=== PATIENT | female | born 2005 | race Caucasian/White ===

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

== ENCOUNTER 2023-06-06 11:42 | Outpatient (CLI) | payer MEDICAID, SELFPAY ==
[2023-06-06 11:59] VITALS: BP 137/83; PULSE 100; PULSE 106; TEMP 36.4; O2SAT 98; BMI 42.7
--- OUTSIDE RECORDS SUMMARY | 2023-06-06 12:04 | XMS RPT_ITS | CCD ---
Author Name Unknown Address [address] [place] [address] Organization [facility] Care Team Providers Care Automatic Pattern Edger Name Role Phone PROVIDER, UNKNOWN Unavailable Unavailable PROVIDER, UNKNOWN Unavailable Unavailable Edison Trejo Unavailable Unavailable Edison Trejo Primary Care Provider REFERRED, SELF Referring Unavailable EDISON TREJO Primary Care Unavailable STEFANY PARTIDA Attending Unavailable EDISON TREJO Primary Care Unavailable STEFANY PARTIDA Attending Unavailable STEFANY PARTIDA Referring Unavailable STEFANY PARTIDA Referring Unavailable EDISON TREJO Primary Care Unavailable STEFANY PARTIDA Attending Unavailable REFERRED, SELF Referring Unavailable ABBI GARCIA Attending Unavailable EDISON TREJO Primary Care Unavailable Edison Trejo Primary Care Provider Abel Gupta Primary Care Provider Edison Trejo Primary Care Provider Edison Trejo MD Primary Care Provider EDISON TREJO Primary Care Unavailable GITA MATTHEWS Attending Unavailable GITA MATTHEWS Referring Unavailable EDISON TREJO Primary Care Unavailable PLOTGITA DIETZ Attending Unavailable PLOTTSGITA Referring Unavailable PLOTGITA DIETZ Referring Unavailable EDISON TREJO Primary Care Unavailable EDISON TREJO Primary Care Unavailable PLOTMIRELA, GITA Referring Unavailable PLOTGITA DIETZ Referring Unavailable EDISON TREJO Primary Care Unavailable GITA MATTHEWS Referring Unavailable EDISON TREJO Primary Care Unavailable EDISON TREOJ Primary Care Unavailable GITA MATTHEWS Referring Unavailable EDISON TREJO Primary Care Unavailable EDISON TREJO Primary Care Unavailable GITA MATTHEWS Attending Unavailable EDISON TREJO Primary Care Unavailable EDISON TREJO Primary Care Unavailable GITA MATTHEWS Attending Unavailable PAPI FRIEND Attending Unavailable PLOTTS, GITA Referring Unavailable TREJO, EDISON VELASQUEZ Primary Care Unavailable PLOTTS, GITA Referring Unavailable TREJO, EDISON EVA Primary Care Unavailable PLOTTS, GITA Attending Unavailable TREJO, EDISON EVA Primary Care Unavailable PLOTTS, GITA Attending Unavailable TREJO, EDISON EVA Primary Care Unavailable PLOTTS, GITA Referring Unavailable VIRGILIO STANTON Attending Unavailable PLOTTS, GITA Referring Unavailable TREJO, EDISON VELASQUEZ Primary Care Unavailable TREJO, EDISON EVA Primary Care Unavailable PLOTTS, GITA Attending Unavailable PLOTTS, GITA Attending Unavailable PLOTTS, GITA Referring Unavailable TREJO, EDISON EVA Primary Care Unavailable TREJO, EDISON EVA Primary Care Unavailable PLOTTS, GITA Attending Unavailable PREET, TAMARA L Referring Unavailable TREJO, EDISON EVA Primary Care Unavailable PREET, TAMARA L Referring Unavailable PREET, TAMARA L Attending Unavailable TREJO, EDISON EVA Primary Care Unavailable PREET, TAMARA L Attending Unavailable TREJO, EDISON EVA Primary Care Unavailable PLOTTS, GITA Referring Unavailable TREJO, EDISON VELASQUEZ Primary Care Unavailable TREJO, EDISON EVA Primary Care Unavailable PLOTTS, GITA Referring Unavailable JANIE WOODARD Attending Unavailable TREJO, EDISON VELASQUEZ Primary Care Unavailable TREJO, EDISON VELASQUEZ Primary Care Unavailable PLOTTS, GITA Attending Unavailable PLOTTS, GITA Referring Unavailable TREJO, EDISON EVA Primary Care Unavailable Allergies Allergy Classification Reported Allergen(s) Allergy Type Date of Onset Reaction(s) Facility (2 sources) Penicillins; Translations: [PENICILLINS] Propensity to adverse reactions to drug 7 [place], [place] (1 source) prednisoLONE; Translations: [PREDNISOLONE] Drug Allergy [facility] Repository (20 sources) predniSONE; Translations: [PREDNISONE] Drug Allergy 7 Vomiting [facility] Work Phone: (5 sources) Penicillins Drug Allergy 7 Other: See Comments [facility] Medications Current Medications Medication Drug Class(es) Dates Sig (Normalized) Sig (Original) ibuprofen 800 mg oral tablet (3 sources) Nonsteroidal Anti-inflammatory Drug Start: 08-23-2022 End: 08-26-2022 take 1 tablet by mouth every eight hours as needed ibuprofen (MOTRIN) 800 mg tablet Take 1 tablet by mouth every 8 hours as needed for pain. FOR PAIN. 20 tablet 0 08/23/2022 08/26/2022 Discontinued Completed/Discontinued Medications Medication Drug Class(es) Dates Sig (Normalized) Sig (Original) [id number] 200 actuat albuterol 0.09 mg/actuat metered dose inhaler (20 sources) beta2-Adrenergic Agonist Start: 04-20-2009 End: 08-26-2022 take 1 puff(s) by inhalation once daily as needed for wheezing ALBUTEROL SULFATE HFA 90 MCG/ACTUATION AEROSOL INHALER Inhale one(1) - two(2) puffs four(4) times a day as needed for wheezing and shortness of breath. 1 1 04/20/2009 08/26/2022 Discontinued Problems Active Problems Problem Classification Problem Date Documented Da te Episodic/Chronic Asthma (20 sources) Unspecified asthma, uncomplicated; Translations: [Asthma, unspecified type, unspecified] 09-25-2005 Chronic Diabetes mellitus without complication (3 sources) Increased glucose level; Translations: [Other abnormal glucose] Onset: 05-07-2023 05-07-2023 Episodic Diabetes or abnormal glucose tolerance complicating ; childbirth; or the puerperium (2 sources) Abnormal glucose level; Translations: [Abnormal glucose complicating ] Onset: 05-30-2023 05-08-2023 Episodic Other complications of (14 sources) Maternal obesity complicating , childbirth and the puerperium, antepartum; Translations: [Obesity complicating , first trimester] Onset: 07-12-2022 Chronic Other complications of (20 sources) Obesity; Translations: [Obesity complicating , unspecified trimester] Onset: 07-12-2022 Chronic Other complications of (16 sources) Anemia in mother complicating , childbirth AND/OR puerperium; Translations: [Anemia complicating , second trimester] Onset: 01-15-2023 01-15-2023 Chronic Other complications of (2 sources) Anemia complicating , second trimester; Translations: [Anemia during in second trimester] Onset: 01-15-2023 Chronic Other complications of (1 source) Obesity complicating , second trimester; Translations: [Obesity affecting in second trimester, unspecified obesity type] Onset: 03-05-2023 Chronic Other complications of (1 source) Obesity complicating , first trimester; Translations: [Obesity complicating , first trimester] Onset: 07-12-2022 Chronic Other complications of (1 source) Non-viable ; Translations: [Other abnormal products of conception] Episodic Other complications of (2 sources) Missed miscarriage; Translations: [Missed ] Episodic Other complications of (1 source) High risk ; Translations: [Supervision of other high risk pregnancies, third trimester] 04-30-2023 Episodic Other complications of (1 source) Supervision of other high risk pregnancies, third trimester; Translations: [Supervision of other high risk pregnancies, third trimester] Onset: 05-30-2023 Episodic Other screening for suspected conditions (not mental disorders or infectious disease) (2 sources) Encounter for other specified screening; Translations: [Encounter for screening for nuchal translucency] Onset: 02-05-2023 Episodic Poisoning by nonmedicinal substances (11 sources) 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, accidental (unintentional), initial encounter; Translations: [Accidental poisoning by lead and its compounds and fumes] Onset: 03-27-2005 03-27-2005 Chronic Residual codes; unclassified (11 sources) Gestation period, 8 weeks; Translations: [8 weeks gestation of ] Onset: 07-12-2022 Episodic Residual codes; unclassified (1 source) Gestation period, 11 weeks; Translations: [11 weeks gestation of ] 01-08-2023 Episodic Residual codes; unclassified (1 source) Gestation period, 12 weeks; Translations: [12 weeks gestation of ] 01-15-2023 Episodic Residual codes; unclassified (1 source) Gestation period, 23 weeks; Translations: [23 weeks gestation of ] 04-02-2023 Episodic Residual codes; unclassified (1 source) Gestation period, 27 weeks; Translations: [27 weeks gestation of ] 04-30-2023 Episodic Residual codes; unclassified (1 source) Gestation period, 30 weeks; Translations: [30 weeks gestation of ] 05-22-2023 Episodic Residual codes; unclassified (1 source) 23 weeks gestation of ; Translations: [23 weeks gestation of ] Onset: 04-30-2023 Episodic Residual codes; unclassified (1 source) 27 weeks gestation of ; Translations: [27 weeks gestation of ] Onset: 11-22-2023 Episodic Residual codes; unclassified (1 source) 15 weeks gestation of ; Translations: [15 weeks gestation of ] Onset: 03-05-2023 Episodic Residual codes; unclassified (1 source) 19 weeks gestation of ; Translations: [19 weeks gestation of ] Onset: 03-05-2023 Episodic Unclassified (2 sources) Overexertion from prolonged static or awkward postures, initial encounter; Translations: [Overexertion from prolonged static or awkward postures, init] Onset: 12-05-2016 Unclassified (1 source) Laceration of left foot; Translations: [Laceration of left foot, initial encounter] Past or Other Problems Problem Classification Problem Date Documented Da te Episodic/Chronic Allergic reactions (11 sources) Contact dermatitis; Translations: [Unspecified contact dermatitis, unspecified cause] Onset: 07-22-2008 07-22-2008 Episodic Appendicitis and other appendiceal conditions (11 sources) Acute appendicitis; Translations: [Unspecified acute appendicitis] Onset: 11-17-2008 11-17-2008 Episodic Other complications of (20 sources) H/O: miscarriage; Translations: [Supervision of with other poor reproductive or obstetric history, unspecified trimester] Onset: 12-12-2022 Episodic Other complications of (1 source) Supervision of with other poor reproductive or obstetric history, unspecified trimester; Translations: [Current with history of spontaneous during prior ] Onset: 12-12-2022 Episodic Other complications of (1 source) Other abnormal products of conception; Translations: [Non-viable ] Onset: 08-23-2022 Episodic Other complications of (1 source) Missed ; Translations: [Missed ] Onset: 08-23-2022 Episodic Other injuries and conditions due to external causes (2 sources) Unspecified injury of right ankle, initial encounter; Translations: [Unspecified injury of right ankle, initial encounter] Onset: 12-05-2016 Episodic Other and delivery including normal (20 sources) Patient encounter status; Translations: [Encounter for supervision of normal first , unspecified trimester] Onset: 07-11-2022 Episodic Residual codes; unclassified (1 source) 12 weeks gestation of ; Translations: [12 weeks gestation of ] Onset: 01-15-2023 Episodic Residual codes; unclassified (1 source) 8 weeks gestation of ; Translations: [8 weeks gestation of ] Onset: 07-12-2022 Episodic Spontaneous (2 sources) Miscarriage; Translations: [Complete or unspecified spontaneous without complication] Onset: 08-23-2022 Episodic Sprains and strains (2 sources) Sprain of unspecified ligament of right ankle, initial encounter; Translations: [Sprain of unspecified ligament of right ankle, init encntr] Onset: 12-05-2016 Episodic Results Test Name Value Interpretation Reference Range Facil ity Vital Signs Date Time Vital Sign Value Performing Clinician Facility 05-22-2023 08:09-0500 Body weight 91.99 kg Gita Plotts SHOWER SCREEN INSTALLER.CNM Work Phone: [facility] 05-22-2023 08:09-0500 Diastolic blood pressure 70 mm[Hg] Gita Plotts SHOWER SCREEN INSTALLER.CNM Work Phone: [facility] 05-22-2023 08:09-0500 Systolic blood pressure 114 mm[Hg] Gita Plotts SHOWER SCREEN INSTALLER.CNM Work Phone: [facility] 04-30-2023 15:36-0500 Body weight 89.36 kg Tamara Oviedo MD Work Phone: [facility] 04-30-2023 15:36-0500 Diastolic blood pressure 74 mm[Hg] Tamara Oviedo MD Work Phone: [facility] 04-30-2023 15:36-0500 Systolic blood pressure 116 mm[Hg] Tamara Oviedo MD Work Phone: [facility] 04-02-2023 09:24-0400 Body weight 90.17 kg Gita Plotts SHOWER SCREEN INSTALLER.CNM Work Phone: [facility] 04-02-2023 09:24-0400 Diastolic blood pressure 80 mm[Hg] Gita Plotts SHOWER SCREEN INSTALLER.CNM Work Phone: [facility] 04-02-2023 09:24-0400 Systolic blood pressure 120 mm[Hg] Gita Plotts SHOWER SCREEN INSTALLER.CNM Work Phone: [facility] 01-08-2023 09:42-0400 Body weight 88.45 kg Gita Plotts SHOWER SCREEN INSTALLER.CNM Work Phone: [facility] 01-08-2023 09:42-0400 Diastolic blood pressure 76 mm[Hg] Gita Plotts SHOWER SCREEN INSTALLER.CNM Work Phone: [facility] 01-08-2023 09:42-0400 Systolic blood pressure 120 mm[Hg] Gita Plotts SHOWER SCREEN INSTALLER.CNM Work Phone: [facility] 09-18-2022 15:46-0400 Body weight 89.36 kg Janie Woodard SHOWER SCREEN INSTALLER.CNM Work Phone: [facility] 09-18-2022 15:46-0400 Diastolic blood pressure 72 mm[Hg] Janie Woodard SHOWER SCREEN INSTALLER.CNM Work Phone: [facility] 09-18-2022 15:46-0400 Systolic blood pressure 122 mm[Hg] Janie Woodard SHOWER SCREEN INSTALLER.CNM Work Phone: [facility] 07-26-2022 08:44-0500 Body weight 90.27 kg Gita Plotts SHOWER SCREEN INSTALLER.CNM Work Phone: [facility] 07-26-2022 08:44-0500 Diastolic blood pressure 72 mm[Hg] Gita Plotts SHOWER SCREEN INSTALLER.CNM Work Phone: [facility] 07-26-2022 08:44-0500 Systolic blood pressure 114 mm[Hg] Gita Plotts SHOWER SCREEN INSTALLER.CNM Work Phone: [facility] 07-12-2022 14:06-0500 Body height 161.3 cm Gita Plotts SHOWER SCREEN INSTALLER.CNM Work Phone: [facility] 07-12-2022 13:13-0500 Body weight 89.9 kg Gita Plotts SHOWER SCREEN INSTALLER.CNM Work Phone: [facility] 07-12-2022 13:13-0500 Diastolic blood pressure 78 mm[Hg] Gita Plotts SHOWER SCREEN INSTALLER.CNM Work Phone: [facility] 07-12-2022 13:13-0500 Systolic blood pressure 120 mm[Hg] Gita Matthews APRN.CNM Work Phone: [facility] 09-26-2019 16:24-0400 Body Temperature 97.81 [degF] Goran Taylor [employer], [place] 09-26-2019 16:24-0400 Body weight 49.44 kg Goran Brandon [employer] , [place] 09-26-2019 16:24-0400 BP Diastolic 74 mm[Hg] Goran Brandon [employer] [place] 09-26-2019 16:24-0400 BP Systolic 127 mm[Hg] Goran [employer] , [place] 09-26-2019 16:24-0400 Pulse (Heart Rate) 109 /min Goran Brandon [employer] 09-26-2019 16:24-0400 Pulse Oximetry 100 % Goran Taylor [employer] , [place] 09-26-2019 16:24-0400 Respiratory Rate 16 /min [facility] [place] Encounters Encounter Date Encounter Type Care Provider Facility Start: 05-30-2023 End: 05-30-2023 ambulatory TAMARA OVIEDO Facility:[facility] Start: 05-30-2023 End: 05-31-2023 ambulatory GITA MATTHEWS Facility:[facility] Start: 05-22-2023 End: 05-22-2023 ambulatory EDISON TREJO Facility:[facility] Start: 05-22-2023 End: 05-22-2023 Patient encounter procedure Gita Matthews APRN.CNM Work Phone: OB/Gynecology Procedures Date Procedure Procedure Detail Performing Clinician Start: 04-30-2023 URINE OB DIP B/O Luis Oviedo MD Work Phone: Start: 04-02-2023 URINE OB DIP B/O Jama Matthews APRN.CNM Work Phone: Start: 01-15-2023 Antibody screen EDISON NEIL Plan of Treatment Date Care Activity Detail Author Start: 09-25-2029 Urine microalbumin profile [facility] Start: 12-17-2023 CHLAMYDIA SCREENING () CHLAMYDIA SCREENING (18-) [facility] Start: 12-17-2023 GC (GONORRHEA) SCREENING (18-24) GC (GONORRHEA) SCREENING (18-24) [facility] Start: 12-17-2023 Screening for Chlamydia trachomatis Chlamydia Screening (18-) [facility] Start: 07-12-2023 CHLAMYDIA SCREENING (18-24) CHLAMYDIA SCREENING (18-24) [facility] Start: 07-12-2023 GC (GONORRHEA) SCREENING (18-24) GC (GONORRHEA) SCREENING (18-24) [facility] Start: 05-30-2023 RSV Vaccine (1 - Risk 1-dose series) RSV Vaccine (1 - Risk 1-dose series) [facility] Start: 05-08-2023 End: 08-07-2023 GEST GLUC GERMAINE, 3-HR, 100 GM, FASTING GEST GLUC GERMAINE, 3-HR, 100 GM, FASTING Lab Routine Abnormal glucose complicating Expected: 05/08/2023, Expires: 08/07/2023 [facility] Work Phone: Immunizations Immunization Date Immunization Notes Care Provider Fa ciliryley 05-09-2022 meningococcal B vaccine, recombinant, OMV, adjuvanted Tamara Oviedo MD Work Phone: [facility] Work Phone: 04-03-2022 meningococcal B vaccine, recombinant, OMV, adjuvanted Tamara Oviedo MD Work Phone: [facility] Work Phone: 04-24-2020 meningococcal polysaccharide (groups A, C, Y and W-135) diphtheria toxoid conjugate vaccine (MCV4P) Tamara Oviedo MD Work Phone: [facility] Work Phone: 09-26-2019 diphtheria, tetanus toxoids and acellular pertussis vaccine, unspecified formulation Goran Brandon [facility] [place] 09-26-2019 tetanus toxoid, redu kendall diphtheria toxoid, and acellular pertussis vaccine, [facility] Work Phone: 07-08-2017 hepatitis A vaccine, pediatric/adolescent dosage, 2 dose schedule Tamara Oviedo MD Work Phone: [facility] Work Phone: 07-08-2017 Human Papillomavirus 9-valent vaccine Tamara Oviedo MD Work Phone: [facility] Work Phone: 07-04-2016 hepatitis A vaccine, pediatric/adolescent dosage, 2 dose schedule Tamara Oviedo MD Work Phone: [facility] Work Phone: 07-04-2016 Human Papillomavirus 9-valent vaccine Tamara Oviedo MD Work Phone: [facility] Work Phone: 10-17-2014 meningococcal polysaccharide (groups A, C, Y and W-135) diphtheria toxoid conjugate vaccine (MCV4P) Tamara Oviedo MD Work Phone: [facility] Work Phone: 10-17-2014 tetanus toxoid, redu kendall diphtheria toxoid, and acellular pertussis vaccine, adsorbed Tamara Oviedo MD Work Phone: [facility] Work Phone: 02-25-2012 influenza, seasonal, injectable Tamara Oviedo MD Work Phone: [facility] Work Phone: 02-25-2012 influenza virus vaccine, unspecified formulation 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 [facility] 01-24-2009 varicella virus vaccine Jacob Matthews SHOWER SCREEN INSTALLER.CNM Work Phone: [facility] Work Phone: 07-14-2007 diphtheria, tetanus toxoids and acellular pertussis vaccine Gita Matthews SHOWER SCREEN INSTALLER.CNM Work Phone: [facility] Work Phone: 07-14-2007 measles, mumps and rubella virus vaccine Gita Matthews SHOWER SCREEN INSTALLER.CNM Work Phone: [facility] Work Phone: 07-14-2007 pneumococcal conjuga te vaccine, 7 valent Tamara Oviedo MD Work Phone: [facility] Work Phone: 07-14-2007 poliovirus vaccine, inactivated Gita Matthews SHOWER SCREEN INSTALLER.CNM Work Phone: [facility] Work Phone: 07-07-2006 influenza virus vaccine, unspecified formulation Gita Matthews SHOWER SCREEN INSTALLER.CNM Work Phone: [facility] Work Phone: 03-27-2005 haemophilus influenz ae type b vaccine, HbOC conjugate Gita Matthews SHOWER SCREEN INSTALLER.CNM Work Phone: [facility] Work Phone: 03-27-2005 pneumococcal conjuga te vaccine, 7 valent Gita Matthews SHOWER SCREEN INSTALLER.CNM Work Phone: [facility] Work Phone: 12-20-2004 diphtheria, tetanus toxoids and acellular pertussis vaccine Gita Mathtews SHOWER SCREEN INSTALLER.CNM Work Phone: [facility] Work Phone: 12-20-2004 measles, mumps and rubella virus vaccine Gita Matthews SHOWER SCREEN INSTALLER.CNM Work Phone: [facility] Work Phone: 12-20-2004 varicella virus vaccine Jacob avilastorm Matthews SHOWER SCREEN INSTALLER.CNM Work Phone: [facility] Work Phone: 07-05-2004 measles, mumps and rubella virus vaccine Tamara Oviedo MD Work Phone: [facility] Work Phone: 04-04-2004 influenza virus vaccine, whole virus Tamara Oviedo MD Work Phone: [facility] Work Phone: 04-04-2004 pneumococcal conjuga te vaccine, 7 valent Tamara Oviedo MD Work Phone: [facility] Work Phone: 04-04-2004 poliovirus vaccine, inactivated Gita Matthews SHOWER SCREEN INSTALLER.CNM Work Phone: [facility] Work Phone: 2003 diphtheria, tetanus toxoids and acellular pertussis vaccine Gita Plotts SHOWER SCREEN INSTALLER.CNM Work Phone: [facility] Work Phone: 2003 haemophilus influenz ae type b conjugate and Hepatitis B vaccine Tamara Oviedo MD Work Phone: [facility] Work Phone: 2003 haemophilus influenz ae type b vaccine, HbOC conjugate Gita Plotts SHOWER SCREEN INSTALLER.CNM Work Phone: [facility] Work Phone: 2003 hepatitis B vaccine, pediatric or pediatric/adolescent dosage Gita Plotts SHOWER SCREEN INSTALLER.CNM Work Phone: [facility] Work Phone: 2003 pneumococcal conjuga te vaccine, 7 valent Gita Plotts SHOWER SCREEN INSTALLER.CNM Work Phone: [facility] Work Phone: 2003 diphtheria, tetanus toxoids and acellular pertussis vaccine Gita Plotts SHOWER SCREEN INSTALLER.CNM Work Phone: [facility] Work Phone: 2003 haemophilus influenz ae type b vaccine, HbOC conjugate Gita Plotts SHOWER SCREEN INSTALLER.CNM Work Phone: [facility] Work Phone: 2003 pneumococcal conjuga te vaccine, 7 valent Gita Plotts SHOWER SCREEN INSTALLER.CNM Work Phone: [facility] Work Phone: 2003 poliovirus vaccine, inactivated Gita Plotts SHOWER SCREEN INSTALLER.CNM Work Phone: [facility] Work Phone: 2003 diphtheria, tetanus toxoids and acellular pertussis vaccine Gita Plotts SHOWER SCREEN INSTALLER.CNM Work Phone: [facility] Work Phone: 2003 haemophilus influenz ae type b vaccine, HbOC conjugate Gita Matthews SHOWER SCREEN INSTALLER.CNM Work Phone: [facility] Work Phone: 2003 pneumococcal conjuga te vaccine, 7 valent Gitaalvin Matthews SHOWER SCREEN INSTALLER.CNM Work Phone: [facility] Work Phone: 2003 poliovirus vaccine, inactivated Gita Matthews SHOWER SCREEN INSTALLER.CNM Work Phone: [facility] Work Phone: 2003 hepatitis B vaccine, pediatric or pediatric/adolescent dosage Gitaalvin Matthews SHOWER SCREEN INSTALLER.CNM Work Phone: [facility] Work Phone: 2003 hepatitis B vaccine, pediatric or pediatric/adolescent dosage Gitaalvin Matthews SHOWER SCREEN INSTALLER.CNM Work Phone: [facility] Work Phone: Payers Date Payer Category Payer Unknown [id number] 2022 Medicaid [id number] 2003 Unknown [id number] [id number] 2003 Unknown [id number] [id number]. [id number] 2003 Unknown [id number] [id number] 2003 Unknown [id number] [id number]. [id number] 2003 Medicaid [id number] Unknown Social History Date Type Detail Facility Start: 12-05-2016 End: 07-12-2022 Tobacco smoking status CAIS Never smoker [facility] Start: 12-05-2016 Alcohol intake Current non-dr fermenter of alcohol (finding) [place], [place] Start: 2003 Sex Assigned At Not on file [facility] depict Exposure to SARS-CoV -2 (event) [facility] Start: 07-11-2018 End: 07-12-2022 Tobacco use and exposure Smokeless tobacco non-user [facility] Start: 01-19-2022 Alcohol intake Not Asked [facility] Start: 07-11-2022 End: 05-22-2023 Alcohol intake Lifetime non-drinker (finding) [facility] Start: 07-11-2022 Education 11 [facility] Start: 05-31-2022 [facility] Tobacco smoking stat [facility] Tobacco smoking consumption unknown [facility] Work Phone: Start: 01-22-2021 End: 02-21-2021 Exposure to SARS-CoV-2 (event) Not sure [facility] Start: 2003 Sex Assigned At Female [facility] Start: 12-12-2022 Education 13 [facility] Start: 12-12-2022 End: 12-16-2022 History of Social function [facility] Start: 12-12-2022 End: 12-16-2022 Tobacco use panel [facility] National Score (1-10 0), lower number is lower risk 75 [facility] Start: 10-02-2022 Gender identity Identifies as female gender (finding) [facility] Start: 10-02-2022 Sexual orientation Heterosexual (fin ding) [facility] Goals Date Patient Goal Desired Activity /State Personal health goal Clinical Notes 07-02-2022 to 05-22-2023 Quick Notes - Gita Matthews APRN.CNM - 05/22/2023 8:19 AM ESTPatient InstructionsTelephone Encounter - Gayatri Li RN - 05/08/2023 9:19 AM ESTPatient InstructionsPatient Instructions Note Date & Type Note Facility 05-22-2023 Miscellaneous Notes S: Rhett Aceves is a 17 year old female who presents at 30.6 weeks gestation for a routine visit. Denies headache, visual changes, chest pain, shortness of breath, vaginal bleeding, leakage of fluid, or dysuria. Failed 1 hour and is scheduling 3 hour GTT. O: See flow sheet Gen: No apparent distress Abd: Gravid, nontender S=D ASSESSMENT/PLAN: 1. 30 weeks gestation of - ICD9: V22.2, ICD10: Z3A.30 (primary diagnosis) - URINE OB DIP B/O 2. Other obesity affecting in third trimester - ICD9: 649.13, 278.00, ICD10: O99.213, E66.8 - Growth US at 32 weeks 3. Anemia in - Taking oral iron- will repeat CBC at 32 weeks P: 1) PTL precautions reviewed and when to call 2) RTO 2 weeks for growth US and LAZ Matthews APRN.CNM documented in this encounter [facility] 05-22-2023 Instructions Dusty Aquino Cma - 05/22/2023 8:08 AM EST SEQUENTIAL SCREENINGS The [facility] offers sequential screenings for women who are interested in screenings for chromosomal abnormalities and certain defects during a . The sequential screen combines ultrasound and blood tests to determine the risk of chromosomal abnormalities, including Down's Syndrome (Trisomy 21) and Trisomy 18, as well as open neural tube defects including spina bifida. Ultrasound examination is performed between 11 weeks and 13 weeks gestational age. Blood tests are drawn after the ultrasound and again later in the between 15 and 21 weeks gestational age. Please let your physician know if you are interested in this testing. It will require an appointment with our hitch technician. This is not an ultrasound performed by a physician in our office during a routine visit. SIGNS AND SYMPTOMS OF LABOR 1. Contractions every 10 minutes or more often 2. Clear, pink, or brownish fluid (water) leaking from vagina 3. Feeling that baby is pushing down, pressure 4. Low, dull backache 5. Cramps that feel like a period 6. Cramps with or without diarrhea If you notice any of the above symptoms, contact our office at [phone] and ask to speak with a nurse. After hours, you can call doctors registry at [phone] OR call [facility] at [phone] and ask to have the doctor consumer educator paged. If you consider this an emergency, dial 9-1-1 or go to your nearest emergency department. NEED HELP? Are you dealing with a violent or abusive relationship? Are you a victim of rape or sexual assult? Call [facility] ([place]) 24 hour Crisis Hotline: 724.437.1160 or 854-202-3180. MANUAL Your Guide to a Healthy manual is now on-line. Visit [email or web address] to download your free copy documented in this encounter [facility] 05-08-2023 Miscellaneous Notes Left message to call office. Please file pended lab order. Gayatri Li RN ----- Message from Gita Matthews APRN.CNM sent at 05/07/2023 5:14 PM EST ----- 1 hour GCT elevated. Please notify patient that she will need to complete a fasting 3 hour GTT. Order placed. documented in this encounter [facility] 05-05-2023 Miscellaneous Notes 3rd risk assessment form submitted 05/05/2023. Debbie Henry RN documented in this encounter [facility] 04-30-2023 Miscellaneous Notes RR- VB No. LOF No. CTXS No. Movement: present. Other c/o: No. Medication list reviewed. Physical Exam See Flow Sheet Abd: soft, nontender, gravid Ext: edema: Trace A/P 27w5d Estimated Date of Delivery: 07/25/23 Labs: 28 week labs anemia- cont. po fe, check cbc and fe studies today declines larc at delivery, plans pills. plan worksheet given info on /birthing education given f/u in 2 weeks considering tdap, revisit next visit Tamara Oviedo M.D. documented in this encounter [facility] 04-30-2023 Instructions Wendi Elliott Ma - 04/30/2023 3:33 PM EST SEQUENTIAL SCREENINGS The [facility] offers sequential screenings for women who are interested in screenings for chromosomal abnormalities and certain defects during a . The sequential screen combines ultrasound and blood tests to determine the risk of chromosomal abnormalities, including Down's Syndrome (Trisomy 21) and Trisomy 18, as well as open neural tube defects including spina bifida. Ultrasound examination is performed between 11 weeks and 13 weeks gestational age. Blood tests are drawn after the ultrasound and again later in the between 15 and 21 weeks gestational age. Please let your physician know if you are interested in this testing. It will require an appointment with our hitch technician. This is not an ultrasound performed by a physician in our office during a routine visit. SIGNS AND SYMPTOMS OF LABOR 1. Contractions every 10 minutes or more often 2. Clear, pink, or brownish fluid (water) leaking from vagina 3. Feeling that baby is pushing down, pressure 4. Low, dull backache 5. Cramps that feel like a period 6. Cramps with or without diarrhea If you notice any of the above symptoms, contact our office at [phone] and ask to speak with a nurse. After hours, you can call doctors registry at [phone] OR call [facility] at [phone] and ask to have the doctor consumer educator paged. If you consider this an emergency, dial 9-8-4 or go to your nearest emergency department. NEED HELP? Are you dealing with a violent or abusive relationship? Are you a victim of rape or sexual assult? Call [facility] ([place]) 24 hour Crisis Hotline: 737.107.8535 or 857-725-8693. MANUAL Your Guide to a Healthy manual is now on-line. Visit [email or web address] to download your free copy documented in this encounter [facility] 04-02-2023 Miscellaneous Notes Rhett Aceves is a 17 year old female who presents at 23w5d Estimated Date of Delivery: 07/25/23 for a routine visit. Good movement. Denies headache, visual changes, chest pain, shortness of breath, vaginal bleeding, leakage of fluid, or dysuria. Feeling well, no complaints. Continues to take iron. Size appropriate for dates. 3 lbs TWG. PTL precautions reviewed. RTC in 4 weeks for LAZ with GCT and CBC. Gita Matthews APRN.CNM documented in this encounter [facility] 04-02-2023 Instructions Sara Shea MA - 04/02/2023 9:18 AM EDT SEQUENTIAL SCREENINGS The [facility] offers sequential screenings for women who are interested in screenings for chromosomal abnormalities and certain defects during a . The sequential screen combines ultrasound and blood tests to determine the risk of chromosomal abnormalities, including Down's Syndrome (Trisomy 21) and Trisomy 18, as well as open neural tube defects including spina bifida. Ultrasound examination is performed between 11 weeks and 13 weeks gestational age. Blood tests are drawn after the ultrasound and again later in the between 15 and 21 weeks gestational age. Please let your physician know if you are interested in this testing. It will require an appointment with our hitch technician. This is not an ultrasound performed by a physician in our office during a routine visit. SIGNS AND SYMPTOMS OF LABOR 1. Contractions every 10 minutes or more often 2. Clear, pink, or brownish fluid (water) leaking from vagina 3. Feeling that baby is pushing down, pressure 4. Low, dull backache 5. Cramps that feel like a period 6. Cramps with or without diarrhea If you notice any of the above symptoms, contact our office at [phone] and ask to speak with a nurse. After hours, you can call doctors registry at [phone] OR call [facility] at [phone] and ask to have the doctor consumer educator paged. If you consider this an emergency, dial 4 or go to your nearest emergency department. NEED HELP? Are you dealing with a violent or abusive relationship? Are you a victim of rape or sexual assult? Call [facility] ([place]) 24 hour Crisis Hotline: 352.733.8640 or 040-233-1729. MANUAL Your Guide to a Healthy manual is now on-line. Visit [email or web address] to download your free copy documented in this encounter [facility] 03-07-2023 Miscellaneous Notes 2nd risk assessment form submitted 03/07/23 Michelle Batista RN documented in this encounter [facility] 01-17-2023 Note HNO ID: [id number] Author: Jenifer Chow RN Service: ? Author Type: Registered Nurse Type: Progress Notes Filed: 01/17/2023 3:20 PM Note Text: Patient referred to Blood Management for evaluation and treatment of pre-surgical anemia and/or iron deficiency. 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 cetirizine (ZYRTEC) 10 mg tablet Take 1 tablet by mouth once daily. fluticasone (FLONASE) 50 mcg/actuation nasal spray Use 2 Sprays in each nostril once daily. Rinse mouth after use. No current facility-administered medications for this visit. Current medications that may affect iron absorption and/or blood loss: - None Baseline laboratory values: WBC (k/uL) Date Value 01/15/2023 11.81 (H) RBC (m/uL) Date Value 01/15/2023 4.29 Hemoglobin (g/dL) Date Value 01/15/2023 9.8 (L) Hematocrit (%) Date Value 01/15/2023 31.7 (L) MCV (fL) Date Value 01/15/2023 73.9 (L) MCH (pg) Date Value 01/15/2023 22.8 (L) MCHC (g/dL) Date Value 01/15/2023 30.9 RDW-CV (%) Date Value 01/15/2023 18.7 (H) Platelet Count (k/uL) Date Value 01/15/2023 542 (H) MPV (fL) Date Value 01/15/2023 9.4 No results found for: FE , TIBC , WALE , FOLATE , B12 , TRANSFERSAT Assess for the need to augment a patient?s natural red blood cell production: - Blood transfusion avoidance - Iron depletion Recommendations according to Blood Management patient care guidelines: - Oral iron every other day with Vitamin C. Repeat labs in 4-6 weeks. IV iron is not recommended in first trimester. Clinical information is sent to a provider for review and evaluation for treatment. [facility] 01-17-2023 History of Presen t illness Narrative Patient referred to Blood Management for evaluation and treatment of pre-surgical anemia and/or iron deficiency. 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 cetirizine (ZYRTEC) 10 mg tablet Take 1 tablet by mouth once daily. fluticasone (FLONASE) 50 mcg/actuation nasal spray Use 2 Sprays in each nostril once daily. Rinse mouth after use. No current facility-administered medications for this visit. Current medications that may affect iron absorption and/or blood loss: - None Baseline laboratory values: WBC (k/uL) Date Value 01/15/2023 11.81 (H) RBC (m/uL) Date Value 01/15/2023 4.29 Hemoglobin (g/dL) Date Value 01/15/2023 9.8 (L) Hematocrit (%) Date Value 01/15/2023 31.7 (L) MCV (fL) Date Value 01/15/2023 73.9 (L) MCH (pg) Date Value 01/15/2023 22.8 (L) MCHC (g/dL) Date Value 01/15/2023 30.9 RDW-CV (%) Date Value 01/15/2023 18.7 (H) Platelet Count (k/uL) Date Value 01/15/2023 542 (H) MPV (fL) Date Value 01/15/2023 9.4 No results found for: FE , TIBC , WALE , FOLATE , B12 , TRANSFERSAT Assess for the need to augment a patient s natural red blood cell production: - Blood transfusion avoidance - Iron depletion Recommendations according to Blood Management patient care guidelines: - Oral iron every other day with Vitamin C. Repeat labs in 4-6 weeks. IV iron is not recommended in first trimester. Clinical information is sent to a provider for review and evaluation for treatment. documented in this encounter [facility] 01-17-2023 Miscellaneous Notes Called patient and notified. Nivia Keating RN Left message for patient to call office. Nivia Keating RN ----- Message from Gita Matthews APRN.CNM sent at 01/15/2023 12:22 PM EDT ----- Patient anemic. Please review oral iron recommendations and have patient start taking. Iron studies ordered and consult to blood management placed. Please notify patient . Gita Matthews APRN.CNM documented in this encounter [facility] 01-15-2023 Miscellaneous Notes Patient had NT u/s today. Please file sequential screen orders. Nivia Keating RN documented in this encounter [facility] 01-08-2023 Miscellaneous Notes Patient declined centering. Dusty Aquino Cma LM for patient to call back to see if she is interested in getting scheduled for Centering. Sara Shea MA documented in this encounter [facility] 01-08-2023 Miscellaneous Notes S: Rhett Aceves is a 17 year old female who presents at 11.5 weeks gestation for a routine visit. Was supposed to have NT US today but needs to reschedule for 12 weeks gestation per hitch technician. Desires sequential screening. Denies headache, visual changes, chest pain, shortness of breath, vaginal bleeding, leakage of fluid, or dysuria. Finished antibiotics- REINALDO next visit. O: See flow sheet Gen: No apparent distress Abd: Gravid, nontender FHT via doppler- 162 bpm ASSESSMENT/PLAN: 1. 11 weeks gestation of - ICD9: V22.2, ICD10: Z3A.11 - URINE OB DIP B/O 2. Obesity affecting P: 1) PTL/ Bleeding precautions reviewed and when to call 2) RTO 1 week for NT US and labs RTO- 4 weeks LAZ Matthews APRN.CNM documented in this encounter [facility] 01-08-2023 Instructions Dusty Aquino Cma - 01/08/2023 9:39 AM EDT SEQUENTIAL SCREENINGS The [facility] offers sequential screenings for women who are interested in screenings for chromosomal abnormalities and certain defects during a . The sequential screen combines ultrasound and blood tests to determine the risk of chromosomal abnormalities, including Down's Syndrome (Trisomy 21) and Trisomy 18, as well as open neural tube defects including spina bifida. Ultrasound examination is performed between 11 weeks and 13 weeks gestational age. Blood tests are drawn after the ultrasound and again later in the between 15 and 21 weeks gestational age. Please let your physician know if you are interested in this testing. It will require an appointment with our hitch technician. This is not an ultrasound performed by a physician in our office during a routine visit. SIGNS AND SYMPTOMS OF LABOR 1. Contractions every 10 minutes or more often 2. Clear, pink, or brownish fluid (water) leaking from vagina 3. Feeling that baby is pushing down, pressure 4. Low, dull backache 5. Cramps that feel like a period 6. Cramps with or without diarrhea If you notice any of the above symptoms, contact our office at [phone] and ask to speak with a nurse. After hours, you can call doctors registry at [phone] OR call [facility] at [phone] and ask to have the doctor consumer educator paged. If you consider this an emergency, dial 9-1-1 or go to your nearest emergency department. NEED HELP? Are you dealing with a violent or abusive relationship? Are you a victim of rape or sexual assult? Call [facility] ([place]) 24 hour Crisis Hotline: 347.961.8372 or 210-200-8380. MANUAL Your Guide to a Healthy manual is now on-line. Visit [email or web address] to download your free copy documented in this encounter [facility] 01-07-2023 Miscellaneous Notes Received the following request from hvac technician :Patient's EDC changed at her POC ultrasound to 2-15-24 which will not make her 12 weeks at her NT screen tomorrow.Patient's BMI is over 40.She is concerned she won't be able to get a good ultrasound image. Please call patient to reschedule.I am leaving for the day documented in this encounter [facility] 12-20-2022 Miscellaneous Notes Patient viewed Pull message. Debbie Salazar RN Left message for patient to call office. Also, sent Pull message. Positive urine culture. Rx for Macrobid 100 mg PO BID x 7 days sent to pharmacy. Please notify patient. Gita Matthews APRN.CNM documented in this encounter [facility] 12-17-2022 Miscellaneous Notes Initial Risk Assessment Form submitted on December 17, 2022 Debbie Mtz RN documented in this encounter [facility] 12-16-2022 Note HNO ID: [id number] Author: Gita Matthews APRN.CNM Service: ? Author Type: Spray Gunner Type: Progress Notes Filed: 12/16/2022 10:12 AM Note Text: OB point of care ultrasound was performed. See imaging tab for details. Gita Matthews APRN.CNM [facility] 12-16-2022 Note HNO ID: [id number] Author: Gita Matthews APRN.CNM Service: ? Author Type: Spray Gunner Type: Progress Notes Filed: 12/16/2022 10:11 AM Note Text: INITIAL OB ASSESSMENT Gold Marker offered: Patient declines. Obstetric History T0 L0 SAB1 IAB0 Ectopic0 Multiple0 Live Births0 Name of Baby 1: Not recorded Date: 08/26/22 GA: 8w4d Delivery: SPONTANEOUS Apgar1: Not recorded Apgar5: Not recorded Living: Not recorded Name of Baby 2: Not recorded Date: Not recorded GA: Not recorded Delivery: Not recorded Apgar1: Not recorded Apgar5: Not recorded Living: Not recorded HPI: Rhett is a 17 year old White Female here to establish Obstetrical Care. Patient's last menstrual period was 10/03/2022 (approximate). from OB Dating Form. Cycles irregular August 2022 [facility] was unplanned but accepted Complaints: None OB History T0 L0 SAB1 IAB0 Ectopic0 Multiple0 Live Births0 Patient's Risk Screening for delivery: MEDICAL/PSYCHOSOCIAL HISTORY: History of hemorrhage or bleeding concerns: No Thyroid Disease: No History of chronic hypertension: No History of pre-existing diabetes: No No results found for: ABORHD BMI 41.21 kg/(m2) History of abnormal pap: No Prior treatment for cervical dysplasia: none. History of STDs: None Tobacco use: No Caffeine use: No Drug use: No Alcohol use: No Multivitamin with Folic acid: Yes Anglican or heritage: No Would refuse blood transfusion if medically necessary: No Are you currently employed? No Do you have any history of depression, anxiety, PTSD, eating disorders or other mood problems: Feels like history of anxiety / depression- no treatment Do you have any safety concerns or history of traumatic events that you would like to discuss with your provider: No How often does this describe you? I don't have enough money to pay my bills: Never Within the past 12 months, have you worried that your food would run out before you had money to buy more: Never In the past 12 months, has lack of reliable transportation kept you from going to medical appointments or work, or from keeping things needed for daily living: Never In the past 12 months, have you had any concerns about having a place to live, or about the condition or quality of your housing: Never Are there any cultural or spiritual needs we should be aware of: No Depression: denies symptoms of depression. 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 cetirizine (ZYRTEC) 10 mg tablet Take 1 tablet by mouth once daily. 30 tablet 0 fluticasone (FLONASE) 50 mcg/actuation nasal spray Use 2 Sprays in each nostril once daily. Rinse mouth after use. 1 Bottle 1 No current facility-administered medications for this visit. Allergies As of Date: 12/16/2022 Allergen Noted Reaction PREDNISONE 07/07/2006 Vomiting Fully Assessed 12/16/2022 Does patient have penicillin allergy: No REVIEW OF SYSTEMS: GENERAL: Negative for: Fever or Chills HEENT: Negative for: Headache, Impaired Vision, Ringing in Ears, Nosebleeds NECK: Negative for: Swelling, Pain, Stiffness RESPIRATORY: Negative for: Cough, Shortness of breath, Wheezing and HISTORY OF INHALIER Uses as needed GASTROINTESTINAL: Negative for: Heartburn, Constipation, Diarrhea, Blood in stool, Vomiting MUSCULOSKELETAL: Negative for: Muscle or joint pain, stiffness, Joint swelling NEUROLOGIC/PSYCHIATRIC: Negative for: Weakness, Paralysis, Numbness, Tingling, Tremor, Anxiety, Depression, Memory loss SKIN: Negative for: Rash, Itching GENITOURINARY: Negative for: vaginal itching, vaginal discharge, hematuria or dysuria and Positive for: urinary frequency PHYSICAL EXAM: BP 112/74 Ht 4' 10 (1.47m) Wt 197 lb 3.2 oz (89.4kg) LMP 10/03/2022 BMI 41.23 kg/(m2). GENERAL: pleasant in no apparent distress DERMATOLOGY: Normal, without lesions, non-icteric, and non-hirsute NECK: Supple and full range of gus (more content not included)... [facility] 12-16-2022 History of Presen t illness Narrative OB point of care ultrasound was performed. See imaging tab for details. Gita Matthews APRN.CNM documented in this encounter [facility] 12-12-2022 Note HNO ID: [id number] Author: Calista Wells RN Service: ? Author Type: ? Type: Progress Notes Filed: 12/12/2022 3:24 PM Note Text: # 1 - Date: 08/26/22, Sex: Unknown, Weight: None, GA: 8w4d, Delivery: SPONTANEOUS , Apgar1: None, Apgar5: None, Living: None, Comments: suction DANDC # 2 - Date: None, Sex: None, Weight: None, GA: None, Delivery: None, Apgar1: None, Apgar5: None, Living: None, Comments: None [facility] 12-12-2022 History of Presen t illness Narrative # 1 - Date: 08/26/22, Sex: Unknown, Weight: None, GA: 8w4d, Delivery: SPONTANEOUS , Apgar1: None, Apgar5: None, Living: None, Comments: suction D&C # 2 - Date: None, Sex: None, Weight: None, GA: None, Delivery: None, Apgar1: None, Apgar5: None, Living: None, Comments: None documented in this encounter [facility] 12-12-2022 Miscellaneous Notes DISTANCE HEALTH VISIT This Team Access Model visit is a phone encounter. It required patient-provider interaction for the medical decision making as documented below. Rhett Aceves is a 17 year old female seen for PNOB. Had a previous miscarriage/D&C August 26, 2022. She had 1 menses in September and a positive test November 26, 2022. She denies any bleeding, pain or cramping this . Patient is obese. We will plan on early hemoglobin A1c. Patient desires aneuploidy screening-nuchal ultrasound and sequential screening. Declines NIPT. Patient declined genetic carrier screening testing.Calista Wells RN documented in this encounter [facility] 11-28-2022 Miscellaneous Notes No blood work needed at this time. Keep PNOB and NOB. An ultrasound will be completed at that time. Gita Matthews APRN.CNM Pt responded to [employer] message and stated that her LMP is 10/03/22. Pt wanting to know how far along she is. By LMP she is 8 weeks. Pt is wanting to know how far along she is. I have her scheduled for her PNOB on 12/12/22 and her NOB on 12/16/22. Please advise. Martha Juares LPN ' 3rd message left for to contact the office to follow up. Pull message also sent to pt. Martha Juares LPN 2nd message left for patient to return phone call Left message to call office. Patient is scheduled for an appointment 12/02/22 and notes mention cramping, wants to know how far along . Please verify if patient is and triage symptoms. Patient will need pnob. documented in this encounter [facility] 09-18-2022 Note HNO ID: [id number] Author: Janie Woodard APRN.CNM Service: ? Author Type: Spray Gunner Type: Progress Notes Filed: 09/18/2022 5:01 PM Note Text: DATE OF SERVICE: 09/18/2022 PROBLEM: Rhett Aceves presents for postop visit. SURGERY AND DATE: Patient underwent suction DANDC for bleeding, incomplete ab on 08/26/22 after taking cytotec 08/25/22 and having heavy bleeding. D/kendall home same day. PATHOLOGY: Consistent with POC, see pathology report SUBJECTIVE/INTERVAL HISTORY: Rhett Aceves reports that she feels well. No fever or chills. No shortness of breath, cough, or chest pain. No incisional redness, swelling, or drainage. Patient reports that her appetite is good. See HPI No abdominal pain, nausea, vomiting, diarrhea, or constipation. See HPI and No dysuria, gross hematuria, urinary frequency, urinary urgency, or incontinence. OBJECTIVE: VITALS: HEENT: Normocephalic, atraumatic, mucus membranes moist, and no lesions NECK: Supple, no adenopathy; thyroid symmetric, normal size, no bruits LUNGS: Clear to auscultation bilaterally. HEART: Regular rate and rhythm, no murmurs. ABDOMEN: Abdomen soft, non-tender, no hepatosplenomegaly. PELVIC: LOWER EXTREMITIES: No pitting edema, no palpable cords, and no skin changes. ASSESSMENT: PLAN: 1. Discussed results of pathology and implications with patient. 2. Postop restrictions reviewed. 3. Based on her pathologic findings, genetic counseling consult is not indicated. Janie Woodard APRN.[facility] 09-18-2022 History of Presen t illness Narrative DATE OF SERVICE: 09/18/2022 PROBLEM: Rhett Aceves presents for postop visit. SURGERY & DATE: Patient underwent suction D&C for bleeding, incomplete ab on 08/26/22 after taking cytotec 08/25/22 and having heavy bleeding. D/kendall home same day. PATHOLOGY: Consistent with POC, see pathology report SUBJECTIVE/INTERVAL HISTORY: Rhett Aceves reports that she feels well. No fever or chills. No shortness of breath, cough, or chest pain. No incisional redness, swelling, or drainage. Patient reports that her appetite is good. See HPI No abdominal pain, nausea, vomiting, diarrhea, or constipation. See HPI and No dysuria, gross hematuria, urinary frequency, urinary urgency, or incontinence. OBJECTIVE: VITALS: HEENT: Normocephalic, atraumatic, mucus membranes moist, and no lesions NECK: Supple, no adenopathy; thyroid symmetric, normal size, no bruits LUNGS: Clear to auscultation bilaterally. HEART: Regular rate and rhythm, no murmurs. ABDOMEN: Abdomen soft, non-tender, no hepatosplenomegaly. PELVIC: LOWER EXTREMITIES: No pitting edema, no palpable cords, and no skin changes. ASSESSMENT: PLAN: 1. Discussed results of pathology and implications with patient. 2. Postop restrictions reviewed. 3. Based on her pathologic findings, genetic counseling consult is not indicated. Janie Woodard APRN.CNM documented in this encounter [facility] 09-03-2022 Miscellaneous Notes Message again left for pt to call the office to offer sooner appt. Martha Juares LPN Left message for patient to call office. Per RR patient to follow up in 1-2 weeks for post op visit from suction D&C for incomplete ab. Patient already scheduled herself with RR on 09/18/22, but wanted to offer her a sooner appointment with CP. Nivia Keating RN documented in this encounter [facility] 08-26-2022 Note HNO ID: [id number] Author: Tamara Oviedo MD Service: ? Author Type: Physician Type: Progress Notes Filed: 08/26/2022 11:12 AM Note Text: Patient underwent suction DANDC for bleeding, incomplete ab on 08/26/22 after taking cytotec 08/25/22 and having heavy bleeding. D/kendall home same day. Pathology pending. Tamara Oviedo MD [facility] 08-26-2022 Note HNO ID: [id number] Author: Nivia Keating RN Service: ? Author Type: ? Type: Progress Notes Filed: 08/26/2022 8:38 AM Note Text: Patient had missed ab. She was seen in our office for 3 visits. Please bill all visits. Nivia Keating RN [facility] 08-26-2022 History of Presen t illness Narrative Patient had missed ab. She was seen in our office for 3 visits. Please bill all visits. Nivia Keating RN documented in this encounter [facility] 08-23-2022 Miscellaneous Notes Rhett Aceves is a 17 year old female who presents at 12.2 weeks gestation for NT US. No cardiac activity seen and CL measures at 8w4d. Discussed findings with patient and reviewed options of medical management with use of Cytotec or surgical intervention. It was not recommended for expectant management due to gestational age of fetus and CL already 4 weeks behind placing patient at higher risk for infection. Questions answered. Patient desires medical management at this time. ASSESSMENT/PLAN: 1. Missed - ICD9: 632, ICD10: O02.1 (primary diagnosis) 2. Miscarriage - ICD9: 634.90, ICD10: O03.9 - Support provided - HCG QUANTITATIVE - TYPE + SCREEN - CBC + DIFF - Cytotec 800 mcg PV x 1 - discussed additional dose after 24 hours if needed - Ibuprofen 800 mg PO every 8 hours as needed for pain - Bleeding precautions reviewed and when to notify provider - Discussed above plan of care with Dr. Oviedo - RTO- next week for follow up Gita Matthews APRN.CNM documented in this encounter [facility] 08-09-2022 Miscellaneous Notes Proximetryt message again sent to pt re: Centering program. Martha Juares LPN 2nd message left for patient to return phone call LM for patient to call back. Please ask if she was able to read over [employer] information about centering and see if she would like to get scheduled. Sara Shea MA documented in this encounter [facility] 07-30-2022 Miscellaneous Notes Opened in error. Gita Matthews APRN.CNM documented in this encounter [facility] 07-26-2022 Miscellaneous Notes S: Rhett Aceves is a 17 year old female who presents for a routine visit. Just completed dating ultrasound and TOM changed to 03/05/23. Chart updated. Feeling good. Denies any nausea or vomiting. Denies headache, visual changes, chest pain, shortness of breath, vaginal bleeding, leakage of fluid, or dysuria. Feeling well, no complaints. O: See flow sheet Gen: No apparent distress Abd: Gravid, nontender ASSESSMENT/PLAN: 1. Obesity complicating , first trimester - ICD9: 649.13, ICD10: O99.211 (primary diagnosis) - URINE OB DIP B/O 2. 8 weeks gestation of - ICD9: V22.2, ICD10: Z3A.10 P: 1) PTL precautions reviewed and when to call 2) Reviewed sequential screening- patient unsure if desires- NT US order placed and patient will schedule at this time. If decides does not want screening- will cancel ultrasound and just come for LAZ. RTO 4 weeks Gita Matthews APRN.CNM documented in this encounter [facility] 07-26-2022 Harmony Taylor Ma - 07/26/2022 8:42 AM EST SEQUENTIAL SCREENINGS The [facility] offers sequential screenings for women who are interested in screenings for chromosomal abnormalities and certain defects during a . The sequential screen combines ultrasound and blood tests to determine the risk of chromosomal abnormalities, including Down's Syndrome (Trisomy 21) and Trisomy 18, as well as open neural tube defects including spina bifida. Ultrasound examination is performed between 11 weeks and 13 weeks gestational age. Blood tests are drawn after the ultrasound and again later in the between 15 and 21 weeks gestational age. Please let your physician know if you are interested in this testing. It will require an appointment with our hitch technician. This is not an ultrasound performed by a physician in our office during a routine visit. SIGNS AND SYMPTOMS OF LABOR 1. Contractions every 10 minutes or more often 2. Clear, pink, or brownish fluid (water) leaking from vagina 3. Feeling that baby is pushing down, pressure 4. Low, dull backache 5. Cramps that feel like a period 6. Cramps with or without diarrhea If you notice any of the above symptoms, contact our office at [phone] and ask to speak with a nurse. After hours, you can call doctors registry at [phone] OR call [facility] at [phone] and ask to have the doctor consumer educator paged. If you consider this an emergency, dial [phone] or go to your nearest emergency department. NEED HELP? Are you dealing with a violent or abusive relationship? Are you a victim of rape or sexual assult? Call [facility] ([place]) 24 hour Crisis Hotline: 725.767.6336 or 854-426-8834. MANUAL Your Guide to a Healthy manual is now on-line. Visit [email or web address] to download your free copy documented in this encounter [facility] 07-18-2022 Miscellaneous Notes Message about Centering option sent to patient. Gita Matthews APRN.CNM documented in this encounter [facility] 07-16-2022 Miscellaneous Notes PRAF form completed. URBAN Rudd, RN OB Clinical Navigator documented in this encounter [facility] 07-12-2022 Note HNO ID: [id number] Author: Gita Matthews APRN.CNM Service: ? Author Type: Spray Gunner Type: Progress Notes Filed: 07/12/2022 2:13 PM Note Text: INITIAL OB ASSESSMENT OB Provider: Gita Matthews CNM HPI: Rhett Aceves is a 17 year old female here with boyfriend to establish Obstetrical Care. Patient's last menstrual period was 05/17/2022 (exact date). from OB Dating Form. Cycles every 27-30 days lasting 4-5 days. Complaints: nausea without vomiting was planned. OB History T0 L0 SAB0 IAB0 Ectopic0 Multiple0 Live Births0 Prior : never History of 4th degree laceration: No Patient's Risk Screening for delivery: N/A History of abnormal pap: No Prior treatment for cervical dysplasia: none. History of STDs: None Tobacco use: No Caffeine use: No Drug use: No Alcohol use: No Multivitamin with Folic acid: Yes Occupation: Senior high school [employer] or heritage: No Would refuse blood transfusion if medically necessary: No BMI 34.56 kg/(m2) Patient BMI over 30? 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 Gender: male History of STDs: None PAST MEDICAL HISTORY Diagnosis Date Asthma Unspecified asthma(493.90) PAST SURGICAL HISTORY Procedure Laterality Date APPENDECTOMY 11-03-08 Review of Systems: GENERAL: Negative for: Fever or Chills HEENT: Negative for: Headache, Impaired Vision, Ringing in Ears, Nosebleeds NECK: Negative for: Swelling, Pain, Stiffness RESPIRATORY: Negative for: Cough, Shortness of breath, Wheezing GASTROINTESTINAL: Negative for: Heartburn, Constipation, Diarrhea, Blood in stool, Vomiting MUSCULOSKELETAL: Negative for: Muscle or joint pain, stiffness, Joint swelling NEUROLOGIC/PSYCHIATRIC: Negative for: Weakness, Paralysis, Numbness, Tingling, Tremor, Anxiety, Depression, Memory loss SKIN: Negative for: Rash, Itching GENITOURINARY: Negative for: vaginal itching, vaginal discharge, hematuria or dysuria PHYSICAL EXAM: BP 120/78 Wt 198 lb 3.2 oz (89.9kg) LMP 05/17/2022 GENERAL: pleasant female in no apparent distress DERMATOLOGY: Normal, without lesions, non-icteric, and non-hirsute NECK: Supple, full range of motion, no adenopathy, and thyroid normal CHEST: Normal inspiratory effort BREAST: soft, non-tender, symmetric, no dominant mass, normal nipple-areolar complex, no lymphadenopathy, and no nipple discharge ABDOMEN: soft, non-tender, and no masses NEURO: alert and oriented x3,exam grossly non-focal PELVIS: External genitalia normal without lesions. Perineal body intact. No vaginal or cervical lesions. Cervix closed. Uterus 5-6 week size. No adnexal masses or tenderness. Clinical Pelvimetry: Pelvimetry clinically assessed as adequate Limited OB ultrasound exam: single intrauterine and positive cardiac activity. Gestational sac, yolk sac and small pole visualized. OB Risk Screening: Completed, no positive findings documented. SBIRT Rhett Presley [place] was given the 4P's screening tool. Rhett answered as follows: OB Opioid Screening - Last Recorded (since 10/15/2021) Did any of your parents have a problem with alcohol or other drug use? Yes father-ETOH Does your partner have a problem with alcohol or other drug use? No In the past, have you had difficulties in your life because of alcohol or other drugs, including prescription medications? No In the past month have you drunk any alcohol or used other drugs? No Are you taking medication for pain during the either prescribed or not? No Based on the screen and further questions, she is considered at Low risk due to:No past or current use. Positive reinforcement of current behavior. Gita Matthews APRN.CNM ASSESSMENT/PLAN: 1. Encounter for supervision of normal in teen primigravida, antepartum - ICD9: V22.0, ICD10: Z34.00 (primary diagnosis) 2. 8 weeks gestation of - ICD9: V22.2, ICD10: Z3A.08 3. Obesity complicating , first trimester - ICD9: 649.13, ICD10: O99.211 PLAN: 1) Patient oriented to practice. Discussed nutrition, folic acid supplementation, dietary guidelines, exercise, smoking, alcohol, caffeine, and drug use. Discussed routine OB labs including STD/HIV. Discussed aneuploidy screening options including serum screening and nuchal translucency. Patient declines all aneuploidy screening. CF carrier screening discussed and declined. TVUS shows gestational sac, yolk sac and pole with cardiac activity- appears to be 6 weeks gestation- Formal dating ultrasound ordered for 2 weeks Gita Matthews APRN.CNM [facility] 07-12-2022 Miscellaneous Notes NOB completed. See progress note. Gita Matthews APRN.CNM documented in this encounter [facility] documented as of this encounter (statuses as of 08/26/2022) [facility] History of Past illness Narrative* Problem Noted Date Resolved Date Obesity complicating , first trimester 07/12/2022 08/26/2022 8 weeks gestation of 07/12/2022 0 08/26/2022 Encounter for supervision of normal in teen primigravida, antepartum 07/11/2022 08/26/2022 Overview: 07/11/2022 Father of the baby involved. 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 INITIAL OB ASSESSMENT OB Provider: Gita Matthews CNM HPI: Rhett Aceves is a 17 year old female here with boyfriend to establish Obstetrical Care. Patient's last menstrual period was 05/17/2022 (exact date). from OB Dating Form. Cycles every 27-30 days lasting 4-5 days. Complaints: nausea without vomiting was planned. OB History T0 L0 SAB0 IAB0 Ectopic0 Multiple0 Live Births0 Prior : never History of 4th degree laceration: No Patient's Risk Screening for delivery: N/A History of abnormal pap: No Prior treatment for cervical dysplasia: none. 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 Gender: male History of STDs: None PAST MEDICAL HISTORY Diagnosis Date Asthma Unspecified asthma(493.90) PAST SURGICAL HISTORY Procedure Laterality Date APPENDECTOMY 11-03-08 Review of Systems: GENERAL: Negative for: Fever or Chills HEENT: Negative for: Headache, Impaired Vision, Ringing in Ears, Nosebleeds NECK: Negative for: Swelling, Pain, Stiffness RESPIRATORY: Negative for: Cough, Shortness of breath, Wheezing GASTROINTESTINAL: Negative for: Heartburn, Constipation, Diarrhea, Blood in stool, Vomiting MUSCULOSKELETAL: Negative for: Muscle or joint pain, stiffness, Joint swelling NEUROLOGIC/PSYCHIATRIC: Negative for: Weakness, Paralysis, Numbness, Tingling, Tremor, Anxiety, Depression, Memory loss SKIN: Negative for: Rash, Itching GENITOURINARY: Negative for: vaginal itching, vaginal discharge, hematuria or dysuria PHYSICAL EXAM: BP 120/78 Wt 198 lb 3.2 oz (89.9kg) LMP 05/17/2022 GENERAL: pleasant female in no apparent distress DERMATOLOGY: Normal, without lesions, non-icteric, and non-hirsute NECK: Supple, full range of motion, no adenopathy, and thyroid normal CHEST: Normal inspiratory effort BREAST: soft, non-tender, symmetric, no dominant mass, normal nipple-areolar complex, no lymphadenopathy, and no nipple discharge ABDOMEN: soft, non-tender, and no masses NEURO: alert and oriented x3,exam grossly non-focal PELVIS: External genitalia normal without lesions. Perineal body intact. No vaginal or cervical lesions. Cervix closed. Uterus 5-6 week size. No adnexal masses or tenderness. Clinical Pelvimetry: Pelvimetry clinically assessed as adequate Limited OB ultrasound exam: single intrauterine and positive cardiac activity. Gestational sac, yolk sac and small pole visualized. OB Risk Screening: Completed, no positive findings documented. SBIRT Rhett Aceves was given the 4P's screening tool. Rhett answered as follows: OB Opioid Screening - Last Recorded (since 10/15/2021) Did any of your parents have a problem with alcohol or other drug use? Yes father-ETOH Does your partner have a problem with alcohol or other drug use? No In the past, have you had difficulties in your life because of alcohol or other drugs, including prescription medications? No In the past month have you drunk any alcohol or used other drugs? No Are you taking medication for pain during the either prescribed or not? No Based on the screen and further questions, she is considered at Low risk due to:No past or current use. Positive reinforcement of current behavior. Gita Matthews APRN.CNM ASSESSMENT/PLAN: 1. Encounter for supervision of normal in teen primigravida, antepartum - ICD9: V22.0, ICD10: Z34.00 (primary diagnosis) 2. 8 weeks gestation of - ICD9: V22.2, ICD10: Z3A.08 3. Obesity complicating , first trimester - ICD9: 649.13, ICD10: O99.211 PLAN: 1) Patient oriented to practice. Discussed nutrition, folic acid supplementation, dietary guidelines, exercise, smoking, alcohol, caffeine, and drug use. Discussed routine OB labs including STD/HIV. Discussed aneuploidy screening options including serum screening and nuchal translucency. Patient declines all aneuploidy screening. CF carrier screening discussed and declined. TVUS shows gestational sac, yolk sac and pole with cardiac activity- appears to be 6 weeks gestation- Formal dating ultrasound ordered for 2 weeks Gita Matthews APRN.CNM [facility] Instructions* Patient Instructions* Dusty Aquino Cma - 07/12/2022 1:12 PM EST Please select the following link to access the [facility] Your Guide to a Healthy . [email or web address] [facility] Miscellaneous Notes* Quick Notes - Calista Wells RN - 07/11/2022 4:26 PM EST DISTANCE HEALTH VISIT This Team Access Model visit is a phone encounter. It required patient-provider interaction for themedical decision making as documented below. Rhett Aceves is a 17 year old female seen for PNOB. Father of the baby involved. 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 Father the baby also attends school there. Patient considering aneuploidy screening. Contact information for [facility] given to patient to check on insurance coverage. Patient declines genetic carrier screening testing.Calista Wells RN [facility] Miscellaneous Notes* Telephone Encounter - Nivia Keating RN - 07/02/2022 4:22 PM EST PNOB scheduled. Nivia Keating RN * Telephone Encounter - Calista Wells RN - 07/02/2022 8:46 AM EST Left message for patient to return phone call. Patient has an appointment with Gita Matthews for NOB appointment. Please schedule PNOB appointment. There are openings this and next week [facility] Diagnosis Encounter for supervision of normal in teen primigravida, antepartum- Primary documented in this encounter [facility] note* Diagnosis Encounter for supervision of normal in teen primigravida, antepartum- Primary 8 weeks gestation of state, incidental Obesity complicating , first trimester documented in this encounter [facility] note* Diagnosis Encounter for supervision of normal in teen primigravida, antepartum- Primary documented in this encounter [facility] note* Diagnosis Obesity complicating , first trimester- Primary 8 weeks gestation of state, incidental care in first trimester- Primary documented in this encounter [facility] note* Diagnosis care in first trimester- Primary documented in this encounter [facility]* Diagnosis Encounter for supervision of normal in teen primigravida, antepartum documented in this encounter [facility]* Diagnosis Non-viable - Primary Other abnormal products of conception documented in this encounter [facility]* Diagnosis Missed - Primary Miscarriage Unspecified spontaneous without mention of complication [facility] Diagnosis Missed - Primary documented in this encounter [facility]* Diagnosis Current with history of spontaneous during prior - Primary Obesity during Patient request for diagnostic testing Other specified examination [facility] Diagnosis with uncertain dates in first trimester- Primary [facility]* Diagnosis 11 weeks gestation of - Primary state, incidental Obesity during [facility] Diagnosis Encounter for screening for nuchal translucency- Primary 12 weeks gestation of state, incidental [facility]* Diagnosis Encounter for (NT) nuchal translucency scan- Primary Other specified screening Current with history of spontaneous during prior [facility]* Diagnosis Anemia complicating , second trimester- Primary [facility]* Diagnosis 23 weeks gestation of - Primary state, incidental Obesity affecting in second trimester, unspecified obesity type Anemia complicating , second trimester [facility]* Diagnosis 27 weeks gestation of - Primary state, incidental Obesity affecting in second trimester, unspecified obesity type Anemia complicating , second trimester Supervision of other high risk pregnancies, third trimester [facility]* Diagnosis Abnormal glucose complicating - Primary Abnormal maternal glucose tolerance, complicating , childbirth, or the puerperium, unspecified as to episode of care documented in this encounter [facility] note* Diagnosis 30 weeks gestation of - Primary state, incidental Other obesity affecting in third trimester documented in this encounter [facility] for referral (narrative)* Diagnostic Procedure Only (Routine) - Authorized Specialty Diagnoses / Procedures Referred By Chioma velazquez Referred To Contact [facility] Diagnoses Encounter for supervision of normal in teen primigravida, antepartum Procedures OBSTETRIC ULTRASOUND WHI US PREG UTERUS AFTER 1ST TRIMEST GESTATION Gita Matthews APRN.JACI [address] [address] [facility] [address] [place] [id number] Referral ID Status Reason Start Date Expiration Date Visits Requested Visits Authorized [id number] Authorized Auto-Generat ed Referral 07/12/2022 07/12/2023 1 1 * Diagnostic Procedure Only (Routine) - Pending Review Specialty Diagnoses / Procedures Referred By Chioma velazquez Referred To Contact [facility] Diagnoses Encounter for supervision of normal in teen primigravida, antepartum 8 weeks gestation of Procedures OBSTETRIC ULTRASOUND WHI US PREG UTERUS AFTER 1ST TRIMEST GESTATION Gita Matthews APRN.CNM [address] [place] [address] [address] Referral ID Status Reason Start Date Expiration Date Visits Requested Visits Authorized [id number] Pending Review Auto-Generat ed Referral 07/12/2022 07/12/2023 1 1 [facility] for referral (narrative)* Diagnostic Procedure Only (Routine) - Authorized Specialty Diagnoses / Procedures Referred By Chioma velazquez Referred To Contact [facility] Diagnoses Obesity complicating , first trimester 8 weeks gestation of Procedures NUCHAL TRANSLUCENCY WHI US NUCHAL TRANSLUCENCY GESTATION Gita Matthews APRN.CNM [address] [place] [address] [address] Referral ID Status Reason Start Date Expiration Date Visits Requested Visits Authorized [id number] Authorized Auto-Generat ed Referral 07/26/2022 07/26/2023 1 1 [facility] for referral (narrative)* Outpatient Procedure (Routine) - Pending Review Specialty Diagnoses / Procedures Referred By Chioma velazquez Referred To Contact [facility] Diagnoses Obesity affecting in second trimester, unspecified obesity type Supervision of other high risk pregnancies, third trimester Procedures NON-STRESS TEST NON-STRESS TEST Tamara Oviedo MD [address] [place] [address] [facility] [address] [place] [address] Referral ID Status Reason Start Date Expiration Date Visits Requested Visits Authorized [id number] Pending Review Auto-Generat ed Referral 3 04/29/2024 10 1 * Diagnostic Procedure Only (Routine) - Authorized Specialty Diagnoses / Procedures Referred By Contac t Referred To Contact [facility] Diagnoses Obesity affecting in second trimester, unspecified obesity type Supervision of other high risk pregnancies, third trimester Procedures OBSTETRIC ULTRASOUND WHI US PREG UTERUS AFTER 1ST TRIMEST GESTATION Tamara Oviedo MD [address] [place] [address] [facility] [address] [place] [address] Referral ID Status Reason Start Date Expiration Date Visits Requested Visits Authorized [id number] Authorized Auto-Generat ed Referral 3 04/29/2024 2 1 [facility] for visit Narrative* Diagnostic Procedure Only (Routine) - Closed Specialty Diagnoses / Procedures Referred By Contac t Referred To Contact [facility] Diagnoses Encounter for supervision of normal in teen primigravida, antepartum Procedures OBSTETRIC ULTRASOUND WHI US PREG UTERUS AFTER 1ST TRIMEST GESTATION Gita Matthews APRN.CHRIS [address] [place] [address] [facility] [address] [place] [address] Referral ID Status Reason Start Date Expiration Date V isits Requested Visits Authorized [id number] Closed Auto-Generate d Referral 07/12/2022 07/12/2023 1 1 [facility] Summary Purpose Family History No Family History Records FoundNo Family History Records FoundNo Family History Records Found Advance Directives No Advanced Directives Records FoundNo Advanced Directives Records FoundNo Advanced Directives Records Found Discharge Instructions * Instructions* Goran Taylor MD - 09/26/2019 Watch for signs of infection such as redness or pus. Sutures out in 7 days. * Attachments The following attachments cannot be sent through Care Everywhere. * Lacerations: Stitches: Pediatric (Khmer) documented in this encounter Assessments Diagnosis Laceration of left foot, initial encounter Health Concerns Problem Noted Date OB Reminders 07/12/2022 Problem Noted Date OB Reminders 07/12/2022 Problem Noted Date OB Reminders 07/12/2022 Problem Noted Date OB Reminders 07/12/2022 Problem Noted Date OB Reminders 07/12/2022 Problem Noted Date OB Reminders 07/12/2022 Infection Onset Date Last Indicated Resolved Time COVID-19 Rule-Out 02/21/2021 02/21/2021 02/22/2021 4:29 AM EDT COVID-19 Confirmed 02/21/2021 02/21/2021 8:52 PM EDT Problem Noted Date [facility] CC Education - COMMON 11/2022 Problem Noted Date Diagnosed Date [facility] CC Education - COMMON 12/12/2022 Problem Noted Date Diagnosed Date [facility] CC Education - COMMON 12/12/2022 Problem Noted Date Diagnosed Date [facility] CC Education - COMMON 12/12/2022 Problem Noted Date Diagnosed Date [facility] CC Education - COMMON 12/12/2022 Problem Noted Date Diagnosed Date [facility] CC Education - COMMON 12/12/2022 Problem Noted Date Diagnosed Date [facility] CC Education - COMMON 12/12/2022 Problem Noted Date Diagnosed Date [facility] CC Education - COMMON 12/12/2022 Problem Noted Date Diagnosed Date [facility] CC Education - COMMON 12/12/2022 Problem Noted Date Diagnosed Date [facility] CC Education - COMMON 12/12/2022 Problem Noted Date Diagnosed Date [facility] CC Education - COMMON 12/12/2022 Problem Noted Date Diagnosed Date [facility] CC Education - COMMON 12/12/2022 Problem Noted Date Diagnosed Date [facility] CC Education - COMMON 12/12/2022 Additional Source Comments INFORMATION SOURCE (unrecogn ized section and content) DATE CREATED AUTHOR AUTHOR'S ORGANIZ ATION 05/13/2022 [facility] DATE CREATED AUTHOR AUTHOR'S ORGANIZ ATION 05/31/2023 [facility] Reason for Visit (unrecogniz ed section and content) Reason Comments Future Appointment Reason Comments Care Reason Comments 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 - Other PRAF Reason Onset Date Comments Care 07/26/2022 Reason Comments Appointment Reason Comments US Specialty Diagnoses / [facility] Diagnoses Obesity complicating , first trimester 8 weeks gestation of Procedures NUCHAL TRANSLUCENCY WHI US NUCHAL TRANSLUCENCY 1ST GESTATION Gita Matthews APRN.CNM [address] [place] [address] [facility] [address] [place] [address] Referral ID Status Reason Start Date Expiration Date V isits Requested Visits Authorized [id number] Closed Auto-Generate d Referral 07/26/2022 07/26/2023 1 1 Reason Comments Post Op Reason Comments Post Op Reason Comments PRAF- initial Reason Comments Results Reason Onset Date Comments Care 01/08/2023 Reason Comments upcoming omayra Reason Comments Orders Specialty Diagnoses / Procedures [facility] Contact [facility] Diagnoses Current with history of spontaneous during prior Procedures NUCHAL TRANSLUCENCY WHI US NUCHAL TRANSLUCENCY 1ST GESTATION Gita Matthews APRN.CNM [address] [place] [address] [facility] [address] [place] [address] Referral ID Status Reason Start Date Expiration Date V isits Requested Visits Authorized [id number] Closed Auto-Generate d Referral 12/16/2022 12/16/2023 1 1 Reason Comments Blood management Reason Comments PRAF Reason Onset Date Comments Care 04/02/2023 Reason Onset Date Comments Care 04/30/2023 Reason Onset Date Comments Care 05/22/2023 Source Comments (unrecognize d section and content) In the event this informatio n is protected by the Federal Confidentiality of Alcohol and Drug Abuse Patient Records regulations: The Federal rules restrict any use of the information to criminally investigate or prosecute any alcohol or drug abuse patient.[facility] the event this information is protected by the Federal Confidentiality of Alcohol and Drug Abuse Patient Records regulations: The Federal rules restrict any use of the information to criminally investigate or prosecute any alcohol or drug abuse patient.[facility] HospitalIn the event this information is protected by the Federal Confidentiality of Alcohol and Drug Abuse Patient Records regulations: The Federal rules restrict any use of the information to criminally investigate or prosecute any alcohol or drug abuse patient.[facility] HospitalIn the event this information is protected by the Federal Confidentiality of Alcohol and Drug Abuse Patient Records regulations: The Federal rules restrict any use of the information to criminally investigate or prosecute any alcohol or drug abuse patient.[facility] HospitalIn the event this information is protected by the Federal Confidentiality of Alcohol and Drug Abuse Patient Records regulations: The Federal rules restrict any use of the information to criminally investigate or prosecute any alcohol or drug abuse patient.[facility] HospitalIn the event this information is protected by the Federal Confidentiality of Alcohol and Drug Abuse Patient Records regulations: The Federal rules restrict any use of the information to criminally investigate or prosecute any alcohol or drug abuse patient.[facility] HospitalIn the event this information is protected by the Federal Confidentiality of Alcohol and Drug Abuse Patient Records regulations: The Federal rules restrict any use of the information to criminally investigate or prosecute any alcohol or drug abuse patient.[facility] HospitalIn the event this information is protected by the Federal Confidentiality of Alcohol and Drug Abuse Patient Records regulations: The Federal rules restrict any use of the information to criminally investigate or prosecute any alcohol or drug abuse patient.[facility] HospitalIn the event this information is protected by the Federal Confidentiality of Alcohol and Drug Abuse Patient Records regulations: The Federal rules restrict any use of the information to criminally investigate or prosecute any alcohol or drug abuse patient.[facility] HospitalIn the event this information is protected by the Federal Confidentiality of Alcohol and Drug Abuse Patient Records regulations: The Federal rules restrict any use of the information to criminally investigate or prosecute any alcohol or drug abuse patient.[facility] HospitalIn the event this information is protected by the Federal Confidentiality of Alcohol and Drug Abuse Patient Records regulations: The Federal rules restrict any use of the information to criminally investigate or prosecute any alcohol or drug abuse patient.[facility] HospitalIn the event this information is protected by the Federal Confidentiality of Alcohol and Drug Abuse Patient Records regulations: The Federal rules restrict any use of the information to criminally investigate or prosecute any alcohol or drug abuse patient.[facility] HospitalIn the event this information is protected by the Federal Confidentiality of Alcohol and Drug Abuse Patient Records regulations: The Federal rules restrict any use of the information to criminally investigate or prosecute any alcohol or drug abuse patient.[facility] HospitalIn the event this information is protected by the Federal Confidentiality of Alcohol and Drug Abuse Patient Records regulations: The Federal rules restrict any use of the information to criminally investigate or prosecute any alcohol or drug abuse patient.[facility] HospitalIn the event this information is protected by the Federal Confidentiality of Alcohol and Drug Abuse Patient Records regulations: The Federal rules restrict any use of the information to criminally investigate or prosecute any alcohol or drug abuse patient.[facility] HospitalIn the event this information is protected by the Federal Confidentiality of Alcohol and Drug Abuse Patient Records regulations: The Federal rules restrict any use of the information to criminally investigate or prosecute any alcohol or drug abuse patient.[facility] HospitalIn the event this information is protected by the Federal Confidentiality of Alcohol and Drug Abuse Patient Records regulations: The Federal rules restrict any use of the information to criminally investigate or prosecute any alcohol or drug abuse patient.[facility] HospitalIn the event this information is protected by the Federal Confidentiality of Alcohol and Drug Abuse Patient Records regulations: The Federal rules restrict any use of the information to criminally investigate or prosecute any alcohol or drug abuse patient.[facility] HospitalIn the event this information is protected by the Federal Confidentiality of Alcohol and Drug Abuse Patient Records regulations: The Federal rules restrict any use of the information to criminally investigate or prosecute any alcohol or drug abuse patient.[facility] HospitalIn the event this information is protected by the Federal Confidentiality of Alcohol and Drug Abuse Patient Records regulations: The Federal rules restrict any use of the information to criminally investigate or prosecute any alcohol or drug abuse patient.[facility] HospitalIn the event this information is protected by the Federal Confidentiality of Alcohol and Drug Abuse Patient Records regulations: The Federal rules restrict any use of the information to criminally investigate or prosecute any alcohol or drug abuse patient.[facility] HospitalIn the event this information is protected by the Federal Confidentiality of Alcohol and Drug Abuse Patient Records regulations: The Federal rules restrict any use of the information to criminally investigate or prosecute any alcohol or drug abuse patient.[facility] HospitalIn the event this information is protected by the Federal Confidentiality of Alcohol and Drug Abuse Patient Records regulations: The Federal rules restrict any use of the information to criminally investigate or prosecute any alcohol or drug abuse patient.[facility] HospitalIn the event this information is protected by the Federal Confidentiality of Alcohol and Drug Abuse Patient Records regulations: The Federal rules restrict any use of the information to criminally investigate or prosecute any alcohol or drug abuse patient.[facility] HospitalIn the event this information is protected by the Federal Confidentiality of Alcohol and Drug Abuse Patient Records regulations: The Federal rules restrict any use of the information to criminally investigate or prosecute any alcohol or drug abuse patient.[facility] HospitalIn the event this information is protected by the Federal Confidentiality of Alcohol and Drug Abuse Patient Records regulations: The Federal rules restrict any use of the information to criminally investigate or prosecute any alcohol or drug abuse patient.[facility] HospitalIn the event this information is protected by the Federal Confidentiality of Alcohol and Drug Abuse Patient Records regulations: The Federal rules restrict any use of the information to criminally investigate or prosecute any alcohol or drug abuse patient.[facility] HospitalIn the event this information is protected by the Federal Confidentiality of Alcohol and Drug Abuse Patient Records regulations: The Federal rules restrict any use of the information to criminally investigate or prosecute any alcohol or drug abuse patient.[facility] HospitalIn the event this information is protected by the Federal Confidentiality of Alcohol and Drug Abuse Patient Records regulations: The Federal rules restrict any use of the information to criminally investigate or prosecute any alcohol or drug abuse patient.[facility] HospitalIn the event this information is protected by the Federal Confidentiality of Alcohol and Drug Abuse Patient Records regulations: The Federal rules restrict any use of the information to criminally investigate or prosecute any alcohol or drug abuse patient.[facility] HospitalIn the event this information is protected by the Federal Confidentiality of Alcohol and Drug Abuse Patient Records regulations: The Federal rules restrict any use of the information to criminally investigate or prosecute any alcohol or drug abuse patient.[facility] HospitalIn the event this information is protected by the Federal Confidentiality of Alcohol and Drug Abuse Patient Records regulations: The Federal rules restrict any use of the information to criminally investigate or prosecute any alcohol or drug abuse patient.[facility] HospitalIn the event this information is protected by the Federal Confidentiality of Alcohol and Drug Abuse Patient Records regulations: The Federal rules restrict any use of the information to criminally investigate or prosecute any alcohol or drug abuse patient.[facility] HospitalIn the event this information is protected by the Federal Confidentiality of Alcohol and Drug Abuse Patient Records regulations: The Federal rules restrict any use of the information to criminally investigate or prosecute any alcohol or drug abuse patient.[facility] HospitalIn the event this information is protected by the Federal Confidentiality of Alcohol and Drug Abuse Patient Records regulations: The Federal rules restrict any use of the information to criminally investigate or prosecute any alcohol or drug abuse patient.[facility] HospitalIn the event this information is protected by the Federal Confidentiality of Alcohol and Drug Abuse Patient Records regulations: The Federal rules restrict any use of the information to criminally investigate or prosecute any alcohol or drug abuse patient.[facility] HospitalIn the event this information is protected by the Federal Confidentiality of Alcohol and Drug Abuse Patient Records regulations: The Federal rules restrict any use of the information to criminally investigate or prosecute any alcohol or drug abuse patient.[facility] HospitalIn the event this information is protected by the Federal Confidentiality of Alcohol and Drug Abuse Patient Records regulations: The Federal rules restrict any use of the information to criminally investigate or prosecute any alcohol or drug abuse patient.[facility] Care Teams (unrecognized sec tion and content) Automatic Pattern Edger Relationship Specialty Start Date End Date Edison Trejo PCP - General Pediatrics 08/16/12 Automatic Pattern Edger Relationship Specialty Start Date End Date Edison Trejo PCP - General Pediatrics 08/16/12 Automatic Pattern Edger Relationship Specialty Start Date End Date Edison Trejo PCP - General Pediatrics 08/16/12 Automatic Pattern Edger Relationship Specialty Start Date End Date Edison Trejo Eva PCP - General Pediatrics 08/16/12 Automatic Pattern Edger Relationship Specialty Start Date End Date Edison Trejo Eva PCP - General Pediatrics 08/16/12 Automatic Pattern Edger Relationship Specialty Start Date End Date Edison Trejo Eva PCP - General Pediatrics 08/16/12 Automatic Pattern Edger Relationship Specialty Start Date End Date Edison Trejo Eva PCP - General Pediatrics 08/16/12 Automatic Pattern Edger Relationship Specialty Start Date End Date Edison Trejo Eva PCP - General Pediatrics 08/16/12 Automatic Pattern Edger Relationship Specialty Start Date End Date Edison Trejo Eva PCP - General Pediatrics 08/16/12 Automatic Pattern Edger Relationship Specialty Start Date End Date Edison Trejo Eva PCP - General Pediatrics 08/16/12 Automatic Pattern Edger Relationship Specialty Start Date End Date Abel Gupta [facility] [address] [place] [address] PCP - General 07/16/04 08/15/12 Edison Trejo [facility] [address] [place] [address] PCP - General Pediatrics 08/16/12 Automatic Pattern Edger Relationship Specialty Start Date End Date TrejoShreeazael Velasquez PCP - General Pediatrics 08/16/12 Automatic Pattern Edger Relationship Specialty Start Date End Date Edison Trejo Eva PCP - General Pediatrics 08/16/12 Automatic Pattern Edger Relationship Specialty Start Date End Date TrejoShreeazael Velasquez PCP - General Pediatrics 08/16/12 Automatic Pattern Edger Relationship Specialty Start Date End Date Edison Trjeo PCP - General Pediatrics 08/16/12 Automatic Pattern Edger Relationship Specialty Start Date End Date Edison Trejo PCP - General Pediatrics 08/16/12 Automatic Pattern Edger Relationship Specialty Start Date End Date Edison Trejo PCP - General Pediatrics 08/16/12 Automatic Pattern Edger Relationship Specialty Start Date End Date Edison Trejo PCP - General Pediatrics 08/16/12 Automatic Pattern Edger Relationship Specialty Start Date End Date Edison Trejo PCP - General Pediatrics 08/16/12 Automatic Pattern Edger Relationship Specialty Start Date End Date Edison Trejo PCP - General Pediatrics 08/16/12 Automatic Pattern Edger Relationship Specialty Start Date End Date Edison Trejo PCP - General Pediatrics 08/16/12 Automatic Pattern Edger Relationship Specialty Start Date End Date Edison Trejo MD (Fax) PCP - General Pediatrics 08/16/12 Automatic Pattern Edger Relationship Specialty Start Date End Date Edison Trejo MD (Fax) PCP - General Pediatrics 08/16/12 Automatic Pattern Edger Relationship Specialty Start Date End Date Edison Trejo MD (Fax) PCP - General Pediatrics 08/16/12 Automatic Pattern Edger Relationship Specialty Start Date End Date Edison Trejo MD PCP - General Pediatrics 08/16/12 Automatic Pattern Edger Relationship Specialty Start Date End Date Edison Trejo MD PCP - General Pediatrics 08/16/12 FOR RECORDS PERTAINING TO PATIENTS WHO ARE OR HAVE BEEN ENROLLED IN A CHEMICAL DEPENDENCY/SUBSTANCEABUSE PROGRAM, SOME INFORMATION MAY BE OMITTED. This clinical summary was aggregated from multiple sources. Caution should be exercised in using it in the provision of clinical care. This summary normalizes information from multiple sources, and as a consequence, information in this document may materially change the coding, format and clinical context of patient data. In addition, data may be omitted in some cases. CLINICAL DECISIONS SHOULD BE BASED ON THE PRIMARY CLINICAL RECORDS. [facility]. provides no warranty or guarantee of the accuracy or completeness of information in this document.
--- NOTE | 2023-06-12 13:14 | OB.TRI.HP_ITS ---
HPI - General General Date of Service: 06/06/23 HPI Narrative RHETT GARCÍA, is a 17 F who presents for monitoring. [facility] Medical History (Updated 06/12/23 @ 13:[address] Reji Prabhakar MD) Complete Home Medications vit no.95-ferrous fumarate 28 mg-folic acid 800 mcg tablet () 1 tab PO DAILY 06/06/23 [History Last Taken 06/05/23 21:00 1 TAB] Allergy/AdvReac Type Severity Reaction Status Date / Time No Known Allergies Allergy Verified 06/06/23 12:07 Surgical History (Updated 08/26/22 @ 04:45 by Tori Robles) History of appendectomy Hx of tonsillectomy Social History Smoking Status: Never smoker NST FHR Rate Baby A Baseline: 130 Accelerations:: 15 x 15 Decelerations:: None Uterine Activity:: occasional Assessment & Plan (1) heart deceleration: PLAN: Plan Reactive NST and reassuring prolonged monitoring for patient with possible deceleration in the office
== END 2023-06-06 14:21 | disposition home or self-care (01) ==
LOC: WPOUT 11:43 → WP 11:44
PROVIDERS: PCP Pediatrics; Referring Provider Obstetrics & Gynecology; Visit Provider Obstetrics & Gynecology
DX: O36.8390 Maternal care for abnormalities of the fetal heart rate or rhythm, unspecified trimester, not applicable or unspecified (principal); Z3A.00 Weeks of gestation of pregnancy not specified
CPT/HCPCS: 59025; 59050; 99221; G0378

== ENCOUNTER 2023-07-04 11:09 | Outpatient (CLI) | payer MEDICAID, SELFPAY ==
[2023-07-04 11:19] VITALS: BP 136/79; PULSE 112; RESP 16; TEMP 36.4; O2SAT 97; BMI 54.3
[2023-07-04] MEDS: 0.9% NaCl Peripheral Flush Adult/Peds IV (11:39)
[2023-07-04] MEDS: Iron Sucrose Complex 200 MG in 0.9% Normal Saline (100mL Bag) 100 ML 220 MG IV (11:39)
[2023-07-04] MEDS: 0.9% NaCl IVPB Med Flush (250 mL) 15 ML IV (11:39)
--- OUTSIDE RECORDS SUMMARY | 2023-07-04 11:40 | XMS RPT_ITS | CCD ---
Author Name Unknown Address [address] [place] [address] Organization [facility] Care Team Providers Care Beef Splitter Name Role Phone PROVIDER, UNKNOWN Unavailable Unavailable [...] Care Provider Abel Gupta Primary Care Provider [phone] Edison Trejo Primary Care Provider Edison Trejo MD Primary Care Provider JANIE WOODARD Attending Unavailable EDISON TREJO Primary Care Unavailable GITA MATTHEWS Referring Unavailable EDISON TREJO Primary Care Unavailable GITA MATTHEWS Attending Unavailable EDISON TREJO Primary Care Unavailable LEXY PAREDES Attending Unavailable EDISON TREJO Primary Care Unavailable TAMARA OVIEDO Referring Unavailable GITA MATTHEWS Referring Unavailable EDISON TREJO Primary Care Unavailable LEXY PAREDES Referring Unavailable EDISON TREJO Primary Care Unavailable EDISON TREJO Primary Care Unavailable TAMARA OVIEDO Referring Unavailable LEXY PAREDES Attending Unavailable EDISON TREJO Primary Care Unavailable TAMARA OVIEDO Referring Unavailable EDISON TREJO Primary Care Unavailable TAMARA OVIEDO Referring Unavailable EDISON TREJO Primary Care Unavailable TAMARA OVIEDO Referring Unavailable EDISON TREJO Primary Care Unavailable PREET, TAMARA L Referring Unavailable TREJO, EDISON EVA Primary Care Unavailable PREET, TAMARA L Referring Unavailable PREET, TAMARA L Attending Unavailable PLOTTS, GITA Attending Unavailable TREJO, EDISON EVA Primary Care Unavailable TREJO, EDISON EVA Primary Care Unavailable TREJO, EDISON EVA Primary Care Unavailable PLOTTS, GITA Attending Unavailable TREJO, EDISON EVA Primary Care Unavailable PLOTTS, GITA Referring Unavailable PLOTTS, GITA Attending Unavailable TREJO, EDISON EVA Primary Care Unavailable PLOTTS, GITA Referring Unavailable PLOTTS, GITA Attending Unavailable TREJO, EDISON EVA Primary Care Unavailable PLOTTS, GITA Referring Unavailable TREJO, EDISON EVA Primary Care Unavailable PLOTTS, GITA Referring Unavailable TREJO, EDISON EVA Primary Care Unavailable TREJO, EDISON EVA Primary Care Unavailable PREET, TAMARA L Referring Unavailable TREJO, EDISON EVA Primary Care Unavailable PREET, TAMARA L Attending Unavailable PREET, TAMARA L Referring Unavailable PLOTTS, GITA Referring Unavailable VIRGILIO STANTON Attending Unavailable PLOTTS, GITA Attending Unavailable TREJO, EDISON EVA Primary Care Unavailable PLOTTS, GITA Referring Unavailable TREJO, EDISON EVA Primary Care Unavailable PAPI FRIEND Attending Unavailable PLOTTS, GITA Attending Unavailable PLOTTS, [...] Care Unavailable PREET, TAMARA L Attending Unavailable PLOTTS, GITA Referring Unavailable TREJO, EDISON EVA Primary Care Unavailable PLOTTS, GITA Attending Unavailable TREJO, EDISON EVA Primary Care Unavailable PLOTTS, GITA Referring Unavailable TREJO, EDISON EVA Primary Care Unavailable JANIE WOODARD Attending Unavailable TREJO, EDISON VEA Primary Care Unavailable PLOTTS, GITA Referring Unavailable TREJO, EDISON EVA Primary Care Unavailable TREJO, EDISON EVA Primary Care Unavailable PREET, TAMARA L Referring Unavailable LEXY PAREDES Attending Unavailable TREJO, EDISON EVA Primary Care Unavailable PREET, TAMARA L Referring Unavailable TREJO, EDISON EVA Primary Care Unavailable Allergies Allergy Classification Reported Allergen(s) Allergy Type Date of Onset Reaction(s) Facility (2 sources) Penicillins; Translations: [PENICILLINS] Propensity to adverse reactions to drug 7 [place], [place] (1 source) prednisoLONE; Translations: [PREDNISOLONE] Drug Allergy [facility] (20 sources) predniSONE; Translations: [PREDNISONE] Drug Allergy 7 Vomiting [facility] Work Phone: (5 sources) Penicillins Drug Allergy 7 Other: See Comments [facility] Medications Current Medications Medication Drug Class(es) Dates [...] Drug Class(es) Dates Sig (Normalized) Sig (Original) [id number] 200 actuat albuterol 0.09 mg/actuat metered dose [...] glucose complicating ] Onset: 05-30-2023 05-08-2023 Episodic Hypertension complicating ; childbirth and the puerperium (1 source) Gestational [-induced] hypertension without significant proteinuria, third trimester; Translations: [Gestational hypertension without significant proteinuria in third trimester] Onset: 06-30-2023 Episodic Other complications of (14 sources) Maternal [...] Onset: 01-15-2023 01-15-2023 Chronic Other complications of (1 source) Anemia complicating , third trimester; Translations: [Anemia complicating , third trimester] Onset: 06-30-2023 Chronic Other complications of (1 source) Obesity complicating , third trimester; Translations: [Obesity affecting in third trimester, unspecified obesity type] Onset: 06-12-2023 Chronic Other complications of (1 source) Obesity complicating , second trimester; Translations: [Obesity affecting in second trimester, unspecified obesity type] Onset: 06-06-2023 Chronic Other complications of (2 sources) Anemia complicating , second trimester; Translations: [Anemia complicating , second trimester] Onset: 01-15-2023 Chronic Other complications [...] other high risk pregnancies, third trimester] Onset: 06-06-2023 Episodic Poisoning by nonmedicinal substances (11 sources) [...] 05-22-2023 Episodic Residual codes; unclassified (1 source) 36 weeks gestation of ; Translations: [36 weeks gestation of ] Onset: 06-30-2023 Episodic Residual codes; unclassified (1 source) 33 weeks gestation of ; Translations: [33 weeks gestation of ] Onset: 06-12-2023 Episodic Residual codes; unclassified (1 source) 23 weeks gestation of ; Translations: [23 weeks gestation of ] Onset: 04-30-2023 Episodic Residual codes; unclassified (1 source) 27 weeks gestation of ; Translations: [27 weeks gestation of ] Onset: 04-30-2023 Episodic Unclassified (2 sources) Overexertion from prolonged [...] 12-12-2022 Episodic Other complications of (1 source) Missed ; Translations: [Missed ] Onset: 08-23-2022 Episodic Other complications of (1 source) Other abnormal products of conception; Translations: [Non-viable ] Onset: 08-23-2022 Episodic Other injuries and conditions due to external causes (2 sources) Unspecified injury of right ankle, initial encounter; Translations: [Unspecified injury of right ankle, initial encounter] Onset: 12-05-2016 Episodic Other and delivery including normal (20 sources) Patient encounter status; Translations: [Encounter for supervision of normal first , unspecified trimester] Onset: 07-11-2022 Episodic Other screening for suspected conditions (not mental disorders or infectious disease) (2 sources) Encounter for other specified screening; Translations: [Encounter for screening for nuchal translucency] Onset: 02-05-2023 Episodic Residual codes; unclassified (1 source) 15 weeks gestation of ; Translations: [15 weeks gestation of ] Onset: 03-05-2023 Episodic Residual codes; unclassified (1 source) 19 weeks gestation of ; Translations: [19 weeks gestation of ] Onset: 03-05-2023 Episodic Residual codes; unclassified (1 source) 12 [...] 08:09-0500 Body weight 91.99 kg Gita Plotts LAMP WIRER.CNM Work Phone: [facility] 05-22-2023 08:09-0500 Diastolic blood pressure 70 mm[Hg] Gita Plotts LAMP WIRER.CNM Work Phone: [facility] 05-22-2023 08:09-0500 Systolic blood pressure 114 mm[Hg] Gita Plotts LAMP WIRER.CNM Work Phone: [facility] 04-30-2023 15:36-0500 Body weight 89.36 kg Tamara Oviedo MD Work Phone: [facility] 04-30-2023 15:36-0500 Diastolic blood pressure 74 mm[Hg] Tamara Oviedo MD Work Phone: [facility] 04-30-2023 15:36-0500 Systolic blood pressure 116 mm[Hg] Tamara Oviedo MD Work Phone: [facility] 04-02-2023 09:24-0400 Body weight 90.17 kg Gita Plotts LAMP WIRER.CNM Work Phone: [facility] 04-02-2023 09:24-0400 Diastolic blood pressure 80 mm[Hg] Gita Plotts LAMP WIRER.CNM Work Phone: [facility] 04-02-2023 09:24-0400 Systolic blood pressure 120 mm[Hg] Gita Plotts LAMP WIRER.CNM Work Phone: [facility] 01-08-2023 09:42-0400 Body weight 88.45 kg Gita Plotts LAMP WIRER.CNM Work Phone: [facility] 01-08-2023 09:42-0400 Diastolic blood pressure 76 mm[Hg] Gita Plotts LAMP WIRER.CNM Work Phone: [facility] 01-08-2023 09:42-0400 Systolic blood pressure 120 mm[Hg] Gita Plotts LAMP WIRER.CNM Work Phone: [facility] 09-18-2022 15:46-0400 Body weight 89.36 kg Janie Woodard LAMP WIRER.CNM Work Phone: [facility] 09-18-2022 15:46-0400 Diastolic blood pressure 72 mm[Hg] Janie Woodard LAMP WIRER.CNM Work Phone: [facility] 09-18-2022 15:46-0400 Systolic blood pressure 122 mm[Hg] Janie Woodard LAMP WIRER.CNM Work Phone: [facility] 07-26-2022 08:44-0500 Body weight 90.27 kg Gita Plotts LAMP WIRER.CNM Work Phone: [facility] 07-26-2022 08:44-0500 Diastolic blood pressure 72 mm[Hg] Gita Plotts LAMP WIRER.CNM Work Phone: [facility] 07-26-2022 08:44-0500 Systolic blood pressure 114 mm[Hg] Gita Plotts LAMP WIRER.CNM Work Phone: [facility] 07-12-2022 14:06-0500 Body height 161.3 cm Gita Plotts LAMP WIRER.CNM Work Phone: [facility] 07-12-2022 13:13-0500 Body weight 89.9 kg Gita Plotts LAMP WIRER.CNM Work Phone: [facility] 07-12-2022 13:13-0500 Diastolic blood pressure 78 mm[Hg] Gita Plotts LAMP WIRER.CNM Work Phone: [facility] 07-12-2022 13:13-0500 Systolic blood pressure 120 mm[Hg] Gita Plotts LAMP WIRER.CNM Work Phone: [facility] 09-26-2019 16:24-0400 Body Temperature 97.81 [degF] [place] 09-26-2019 16:24-0400 Body weight 49.44 kg [facility] [place] , [place] 09-26-2019 16:24-0400 BP Diastolic 74 mm[Hg] Goran Henderson [facility] , [place] 09-26-2019 16:24-0400 BP Systolic 127 mm[Hg] Goran Henderson [facility] [place] , [place] 09-26-2019 16:24-0400 Pulse (Heart Rate) 109 /min Goran Henderson [facility], [place] 09-26-2019 16:24-0400 Pulse Oximetry 100 % Goran Henderson [facility] , [place] 09-26-2019 16:24-0400 Respiratory Rate 16 /min [facility] [place] Encounters Encounter Date Encounter Type Care Provider Facility Start: 06-30-2023 End: 07-01-2023 ambulatory [facility] Facility:[facility] Start: 06-27-2023 End: 06-27-2023 ambulatory [facility] Facility:[facility] Start: 06-19-2023 End: 06-20-2023 ambulatory EDISON VELASQUEZ BOULDER Facility:[facility] Start: 06-12-2023 End: 06-12-2023 ambulatory [facility] Facility:[facility] Start: 06-06-2023 End: 06-06-2023 ambulatory [facility] Facility:[facility] Start: 05-30-2023 End: 05-30-2023 ambulatory [facility] Facility:[facility] Start: 05-30-2023 End: 05-31-2023 ambulatory GITA MATTHEWS Facility:[facility] Start: 05-22-2023 End: 05-22-2023 ambulatory GITA MATTHEWS Facility:[facility] Start: 05-22-2023 End: 05-22-2023 Patient encounter procedure Gita Matthews LAMP WIRER.CNM Work Phone: OB/Gynecology Procedures Date Procedure Procedure Detail Performing Clinician Start: 04-30-2023 URINE OB DIP B/O Luis Oviedo MD Work Phone: Start: 04-02-2023 URINE OB DIP B/O Jama Matthews LAMP WIRER.CNM Work Phone: Start: 01-15-2023 Antibody screen JANIE WOODARD Plan of Treatment Date Care Activity Detail Author Start: 09-25-2029 Urine microalbumin profile [facility] Start: 12-17-2023 CHLAMYDIA SCREENING (18-24) CHLAMYDIA SCREENING (18-24) [facility] Start: 12-17-2023 GC (GONORRHEA) SCREENING (18-24) GC (GONORRHEA) SCREENING (18-24) [facility] Start: 12-17-2023 Screening for Chlamydia trachomatis Chlamydia Screening (18-24) [facility] Start: 07-12-2023 CHLAMYDIA SCREENING (18-24) CHLAMYDIA SCREENING (18-24) [facility] Start: 07-12-2023 GC (GONORRHEA) SCREENING (18-24) GC (GONORRHEA) SCREENING (18-24) [facility] Start: 05-30-2023 RSV Vaccine (1 - Risk 1-dose series) RSV Vaccine (1 - Risk 1-dose series) [facility] Start: 05-08-2023 End: 08-07-2023 GEST GLUC GERMAINE, 3-HR, 100 GM, FASTING GEST GLUC GERMAINE, 3-HR, 100 GM, FASTING Lab Routine Abnormal glucose complicating Expected: 05/08/2023, Expires: 08/07/2023 [facility] Work Phone: Immunizations Immunization Date Immunization Notes Care Provider Fa alvertoryley 05-09-2022 meningococcal B vaccine, recombinant, OMV, adjuvanted Tamara Oviedo MD Work Phone: [facility] Work Phone: 04-03-2022 meningococcal B vaccine, recombinant, OMV, adjuvanted Tamara Oviedo MD Work Phone: [facility] Work Phone: 04-24-2020 meningococcal polysaccharide (groups A, C, Y and W-135) diphtheria toxoid conjugate vaccine (MCV4P) Tamara Oviedo MD Work Phone: [facility] Work Phone: 09-26-2019 diphtheria, tetanus toxoids and acellular pertussis vaccine, unspecified formulation [facility] [place] 09-26-2019 tetanus toxoid, redu kendall diphtheria toxoid, and acellular pertussis vaccine, adsorbed [facility] Work Phone: 07-08-2017 hepatitis A vaccine, pediatric/adolescent dosage, 2 dose schedule Tamara Oviedo MD Work Phone: [facility] Work Phone: 07-08-2017 Human Papillomavirus 9-valent vaccine Tamara Oviedo MD Work Phone: [facility] Work Phone: 07-04-2016 hepatitis A vaccine, pediatric/adolescent dosage, 2 dose schedule Tamara Oviedo MD Work Phone: [facility] Work Phone: 07-04-2016 Human Papillomavirus 9-valent vaccine Tamara Oviedo MD Work Phone: [facility] Work Phone: 10-17-2014 meningococcal polysaccharide (groups A, C, Y and W-135) diphtheria toxoid conjugate vaccine (MCV4P) Tamara Oviedo MD Work Phone: [facility] Work Phone: 10-17-2014 tetanus toxoid, redu kendall diphtheria toxoid, and acellular pertussis vaccine, adsorbed Tamara Oviedo MD Work Phone: [facility] Work Phone: 02-25-2012 influenza, seasonal, injectable Tamara Oviedo MD Work Phone: [facility] Work Phone: 02-25-2012 influenza virus vaccine, unspecified formulation [employer] JIM [facility] 01-24-2009 varicella virus vaccine Jacob Matthews LAMP WIRER.CNM Work Phone: [facility] Work Phone: 07-14-2007 diphtheria, tetanus toxoids and acellular pertussis vaccine Gita Matthews LAMP WIRER.CNM Work Phone: [facility] Work Phone: 07-14-2007 measles, mumps and rubella virus vaccine Gita Matthews LAMP WIRER.JACI Work Phone: [facility] Work Phone: 07-14-2007 pneumococcal conjuga te vaccine, 7 valent Tamara Oviedo MD Work Phone: [facility] Work Phone: 07-14-2007 poliovirus vaccine, inactivated Gita Matthews LAMP WIRER.CNM Work Phone: [facility] Work Phone: 07-07-2006 influenza virus vaccine, unspecified formulation Gita Matthews LAMP WIRER.CNM Work Phone: [facility] Work Phone: 03-27-2005 haemophilus influenz ae type b vaccine, HbOC conjugate Gitaalvin Matthews LAMP WIRER.CNM Work Phone: [facility] Work Phone: 03-27-2005 pneumococcal conjuga te vaccine, 7 valent Gita Venegasdilip LAMP WIRER.CNM Work Phone: [facility] Work Phone: 12-20-2004 diphtheria, tetanus toxoids and acellular pertussis vaccine Gita Matthews LAMP WIRER.CNM Work Phone: [facility] Work Phone: 12-20-2004 measles, mumps and rubella virus vaccine Gita Venegasdilip LAMP WIRER.CNM Work Phone: [facility] Work Phone: 12-20-2004 varicella virus vaccine Jacob brody Rubidilip LAMP WIRER.CNM Work Phone: [facility] Work Phone: 07-05-2004 measles, mumps and rubella virus vaccine Tamara Oviedo MD Work Phone: [facility] Work Phone: 04-04-2004 influenza virus vaccine, whole virus Tamara Oviedo MD Work Phone: [facility] Work Phone: 04-04-2004 pneumococcal conjuga te vaccine, 7 valent Tamara Oviedo MD Work Phone: [facility] Work Phone: 04-04-2004 poliovirus vaccine, inactivated Gita Matthews LAMP WIRER.CNM Work Phone: [facility] Work Phone: 2003 diphtheria, tetanus toxoids and acellular pertussis vaccine Gita Matthews LAMP WIRER.CNM Work Phone: [facility] Work Phone: 2003 haemophilus influenz ae type b conjugate and Hepatitis B vaccine Tamara Oviedo MD Work Phone: [facility] Work Phone: 2003 haemophilus influenz ae type b vaccine, HbOC conjugate Gita Matthews LAMP WIRER.CNM Work Phone: [facility] Work Phone: 2003 hepatitis B vaccine, pediatric or pediatric/adolescent dosage Gita Venegasdilip LAMP WIRER.CN Work Phone: [facility] Work Phone: 2003 pneumococcal conjuga te vaccine, 7 valent Gita Venegasts LAMP WIRER.CNM Work Phone: [facility] Work Phone: 2003 diphtheria, tetanus toxoids and acellular pertussis vaccine Gita Matthews LAMP WIRER.CNM Work Phone: [facility] Work Phone: 2003 haemophilus influenz ae type b vaccine, HbOC conjugate Gita Venegasts LAMP WIRER.CNM Work Phone: [facility] Work Phone: 2003 pneumococcal conjuga te vaccine, 7 valent Gita Venegasts LAMP WIRER.CNM Work Phone: [facility] Work Phone: 2003 poliovirus vaccine, inactivated Gita Venegasts LAMP WIRER.CNM Work Phone: [facility] Work Phone: 2003 diphtheria, tetanus toxoids and acellular pertussis vaccine Gita Matthews LAMP WIRER.CNM Work Phone: [facility] Work Phone: 2003 haemophilus influenz ae type b vaccine, HbOC conjugate Gitaalvin Matthews LAMP WIRER.CNM Work Phone: [facility] Work Phone: 2003 pneumococcal conjuga te vaccine, 7 valent Gitaalvin Matthews LAMP WIRER.CNM Work Phone: [facility] Work Phone: 2003 poliovirus vaccine, inactivated [facility] [place] LAMP WIRER.CNM Work Phone: [facility] Work Phone: 2003 hepatitis B vaccine, pediatric or pediatric/adolescent dosage Gitaalvin Matthews LAMP WIRER.CNM Work Phone: [facility] Work Phone: 2003 hepatitis B vaccine, pediatric or pediatric/adolescent dosage Gitaalvin Matthews LAMP WIRER.CNM Work Phone: [facility] Work Phone: Payers Date Payer Category Payer Unknown [id number] 2022 Medicaid [id number] 2003 Unknown [id number] 2003 Unknown [id number] 2003 Unknown [id number] 2003 Unknown [id number] 2003 Medicaid 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 Start: 07-11-2022 End: 05-22-2023 Alcohol intake Lifetime non-drinker (finding) [facility] Start: 07-11-2022 Education 11 [facility] Start: 05-31-2022 [facility] Tobacco smoking stat us TXIS Tobacco smoking consumption unknown [facility] Work Phone: Start: 01-22-2021 End: 02-21-2021 Exposure to SARS-CoV-2 (event) Not sure [facility] Start: 2003 Sex Assigned At Female [facility] Start: 12-12-2022 Education 13 [facility] Start: 12-12-2022 End: 12-16-2022 History of Social function [facility] Start: 12-12-2022 End: 12-16-2022 Tobacco use panel [facility] National Score (1-10 0), lower number is lower risk 75 [facility] Start: 10-02-2022 Gender identity Identifies as female gender (finding) [facility] Start: 10-02-2022 Sexual orientation Heterosexual (fin ding) [facility] Goals Date Patient Goal Desired Activity /State Personal health goal Clinical Notes 07-02-2022 to 06-30-2023 Quick Notes - Gita Matthews APRN.CNM - 05/22/2023 8:19 AM ESTPatient InstructionsTelephone Encounter - Gayatri Li RN - 05/08/2023 9:19 AM ESTPatient InstructionsPatient Instructions Note Date & Type Note Facility 06-30-2023 Note HNO ID: [id number] Author: JANIE WOODARD APRN.CNM Service: ? Author Type: Employment Program Representative Type: Progress Notes Filed: 06/30/2023 16:32 Note Text: NST SUMMARY PROVIDER ASSESSMENT AND INTERPRETATION Rhett Aceves is a 18 year old female, , who is at 36w3d with an TOM of 07/25/2023, by Ultrasound dating method. Indications for NST: Gestational HTN and Obesity Baseline: 155 Variability: Moderate Accelerations: Present 15 X 15 Decelerations: None Contractions: TOCO: None Interpretation: Reactive SIGNATURE: [facility]-2023 Note HNO ID: [id number] Author: TAMARA OVIEDO MD Service: ? Author Type: Physician Type: Progress Notes Filed: 06/19/2023 14:26 Note Text: NST SUMMARY PROVIDER ASSESSMENT AND INTERPRETATION Rhett Aceves is a 18 year old female, , who is at 34w6d with an TOM of 07/25/2023, by Ultrasound dating method. Indications for NST: Obesity Baseline: 140 Variability: Moderate Accelerations: Present 15 X 15 Decelerations: None Contractions: TOCO: None Interpretation: Category I and Reactive SIGNATURE: Tamara Oviedo MD [facility] 06-06-2023 Note HNO ID: [id number] Author: Lexy Paredes MD Service: ? Author Type: Physician Type: Progress Notes Filed: 06/06/2023 11:31 AM Note Text: NST SUMMARY PROVIDER ASSESSMENT AND INTERPRETATION Rhett Aceves is a 17 year old female, , who is at 33w0d with an TOM of 07/25/2023, by Ultrasound dating method. Indications for NST: Obesity Baseline: 140 Variability: Moderate Accelerations: Present 15 X 15 Decelerations: Variable, possible prolonged vs baseline change Contractions: TOCO: None Interpretation: Category II SIGNATURE: Lexy Paredes MD [facility] 05-22-2023 Miscellaneous Notes S: Rhett Aceves is [...] LAZ Matthews APRN.CNM documented in this encounter [facility] 05-22-2023 Instructions Dusty Aquino Cma - 05/22/2023 8:08 AM EST SEQUENTIAL SCREENINGS The [facility] offers sequential screenings for women who are [...] It will require an appointment with our solid waste landfill technician. This is not an ultrasound performed [...] the above symptoms, contact our office at [phone] and ask to speak with a nurse. After hours, you can call doctors registry at [phone] OR call [facility] at [phone] and ask to have the doctor senior instructional designer paged. If you consider this an emergency, dial 9-1-1 or go to your nearest emergency department. NEED HELP? Are you dealing with a violent or abusive relationship? Are you a victim of rape or sexual assult? Call [facility] ([place]) 24 hour Crisis Hotline: 349.931.8595 or 321-561-6163. MANUAL Your Guide to a Healthy manual is now on-line. Visit [email or web address] to download your free copy documented in this encounter [facility] 05-08-2023 Miscellaneous Notes Left message to call office. Please file pended lab order. Gayatri Li RN ----- Message from Gita Matthews APRN.CNM sent at 05/07/2023 5:14 PM EST ----- 1 hour GCT elevated. Please notify patient that she will need to complete a fasting 3 hour GTT. Order placed. documented in this encounter [facility] 05-05-2023 Miscellaneous Notes 3rd risk assessment form submitted 05/05/2023. Debbie Henry RN documented in this encounter [facility] 04-30-2023 Miscellaneous Notes RR- VB No. LOF [...] Tamara Oviedo M.D. documented in this encounter [facility] 04-30-2023 Instructions Wendi Elliott Ma - 04/30/2023 3:33 PM EST SEQUENTIAL SCREENINGS The [facility] offers sequential screenings for women who are [...] It will require an appointment with our solid waste landfill technician. This is not an ultrasound performed [...] the above symptoms, contact our office at [phone] and ask to speak with a nurse. After hours, you can call doctors registry at [phone] OR call [facility] at [phone] and ask to have the doctor senior instructional designer paged. If you consider this an emergency, dial 9-7-6 or go to your nearest emergency department. NEED HELP? Are you dealing with a violent or abusive relationship? Are you a victim of rape or sexual assult? Call [facility] ([place]) 24 hour Crisis Hotline: 599.691.9366 or 279-774-7380. MANUAL Your Guide to a Healthy manual is now on-line. Visit [email or web address] to download your free copy documented in this encounter [facility] 04-02-2023 Miscellaneous Notes Rhett Aceves is a [...] Gita Matthews APRN.CNM documented in this encounter [facility] 04-02-2023 Instructions Sara Shea MA - 04/02/2023 9:18 AM EDT SEQUENTIAL SCREENINGS The [facility] offers sequential screenings for women who are [...] It will require an appointment with our solid waste landfill technician. This is not an ultrasound performed [...] the above symptoms, contact our office at [phone] and ask to speak with a nurse. After hours, you can call doctors registry at [phone] OR call [facility] at [phone] and ask to have the doctor senior instructional designer paged. If you consider this an emergency, dial 9 or go to your nearest emergency department. NEED HELP? Are you dealing with a violent or abusive relationship? Are you a victim of rape or sexual assult? Call [facility] ([place]) 24 hour Crisis Hotline: 738.278.9418 or 341-232-4181. MANUAL Your Guide to a Healthy manual is now on-line. Visit [email or web address] to download your free copy documented in this encounter [facility] 03-07-2023 Miscellaneous Notes 2nd risk assessment form submitted 03/07/23 Michelle Batista RN documented in this encounter [facility] 01-17-2023 Note HNO ID: [id number] Author: Jenifer Chow RN Service: ? Author [...] SURGICAL HISTORY Procedure Laterality Date APPENDECTOMY 11/03/2008 [facility] SUCTION incomplete AB Other significant Medical/Surgical history: [...] provider for review and evaluation for treatment. [facility] 01-17-2023 History of Presen t illness Narrative [...] evaluation for treatment. documented in this encounter [facility] 01-17-2023 Miscellaneous Notes Called patient and notified. [...] Gita Matthews APRN.CNM documented in this encounter [facility] 01-15-2023 Miscellaneous Notes Patient had NT u/s today. Please file sequential screen orders. Nivia Keating RN documented in this encounter [facility] 01-08-2023 Miscellaneous Notes Patient declined centering. Dusty Aquino Cma LM for patient to call back to see if she is interested in getting scheduled for Centering. Sara Shea MA documented in this encounter [facility] 01-08-2023 Miscellaneous Notes S: Rhett Aceves is a 17 year old female who presents at 11.5 weeks gestation for a routine visit. Was supposed to have NT US today but needs to reschedule for 12 weeks gestation per solid waste landfill technician. Desires sequential screening. Denies headache, visual [...] LAZ Matthews APRN.CNM documented in this encounter [facility] 01-08-2023 Instructions Dusty Aquino Cma - 01/08/2023 9:39 AM EDT SEQUENTIAL SCREENINGS The [facility] offers sequential screenings for women who are [...] It will require an appointment with our solid waste landfill technician. This is not an ultrasound performed [...] the above symptoms, contact our office at [phone] and ask to speak with a nurse. After hours, you can call doctors registry at [phone] OR call [facility] at [phone] and ask to have the doctor senior instructional designer paged. If you consider this an emergency, dial 9-1-1 or go to your nearest emergency department. NEED HELP? Are you dealing with a violent or abusive relationship? Are you a victim of rape or sexual assult? Call [facility] ([place]) 24 hour Crisis Hotline: 904.210.2008 or 671-469-9198. MANUAL Your Guide to a Healthy manual is now on-line. Visit [email or web address] to download your free copy documented in this encounter [facility] 01-07-2023 Miscellaneous Notes Received the following request from technical solutions consultant :Patient's EDC changed at her POC ultrasound to 2-15-24 which will not make her 12 weeks at her NT screen tomorrow.Patient's BMI is over 40.She is concerned she won't be able to get a good ultrasound image. Please call patient to reschedule.I am leaving for the day documented in this encounter [facility] 12-20-2022 Miscellaneous Notes Patient viewed GroupT[employer] message. Debbie Salazar RN Left message for patient to call office. Also, sent [employer] message. Positive urine culture. Rx for Macrobid 100 mg PO BID x 7 days sent to pharmacy. Please notify patient. Gita Matthews APRN.CNM documented in this encounter [facility] 12-17-2022 Miscellaneous Notes Initial Risk Assessment Form submitted on December 17, 2022 Debbie Mtz RN documented in this encounter [facility] 12-16-2022 Note HNO ID: [id number] Author: Gita Matthews APRN.CNM Service: ? Author Type: Employment Program Representative Type: Progress Notes Filed: 12/16/2022 10:12 AM Note Text: OB point of care ultrasound was performed. See imaging tab for details. Gita Matthews APRN.CNM [facility] 12-16-2022 Note HNO ID: [id number] Author: Gita Matthews APRN.CNM Service: ? Author Type: Employment Program Representative Type: Progress Notes Filed: 12/16/2022 10:11 AM Note Text: INITIAL OB ASSESSMENT Sourcing Specialist offered: Patient declines. Obstetric History T0 L0 [...] OB Dating Form. Cycles irregular August 2022 [facility] was unplanned but accepted Complaints: None OB [...] use: No Multivitamin with Folic acid: Yes Taoist or heritage: No Would refuse blood transfusion [...] SURGICAL HISTORY Procedure Laterality Date APPENDECTOMY 11/03/2008 [facility] SUCTION incomplete AB Current Outpatient Medications Medication [...] range of gus (more content not included)... [facility] 12-16-2022 History of Presen t illness Narrative OB point of care ultrasound was performed. See imaging tab for details. Gita Matthews APRN.CNM documented in this encounter [facility] 12-12-2022 Note HNO ID: [id number] Author: Calista Wells RN Service: ? Author Type: ? Type: Progress Notes Filed: 12/12/2022 3:24 PM Note Text: # 1 - Date: 08/26/22, Sex: Unknown, Weight: None, GA: 8w4d, Delivery: SPONTANEOUS , Apgar1: None, Apgar5: None, Living: None, Comments: suction DANDC # 2 - Date: None, Sex: None, Weight: None, GA: None, Delivery: None, Apgar1: None, Apgar5: None, Living: None, Comments: None [facility] 12-12-2022 History of Presen t illness Narrative # 1 - Date: 08/26/22, Sex: Unknown, Weight: None, GA: 8w4d, Delivery: SPONTANEOUS , Apgar1: None, Apgar5: None, Living: None, Comments: suction D&C # 2 - Date: None, Sex: None, Weight: None, GA: None, Delivery: None, Apgar1: None, Apgar5: None, Living: None, Comments: None documented in this encounter [facility] 12-12-2022 Miscellaneous Notes DISTANCE HEALTH VISIT This [...] testing.Calista Wells RN documented in this encounter [facility] 11-28-2022 Miscellaneous Notes No blood work needed at this time. Keep PNOB and NOB. An ultrasound will be completed at that time. Gita Matthews APRN.CNM Pt responded to [employer] message and stated that her LMP is [...] to contact the office to follow up. [employer] message also sent to pt. Martha Juares LPN 2nd message left for patient to return phone call Left message to call office. Patient is scheduled for an appointment 12/02/22 and notes mention cramping, wants to know how far along . Please verify if patient is and triage symptoms. Patient will need pnob. documented in this encounter [facility] 09-18-2022 Note HNO ID: [id number] Author: Janie Woodard APRN.CNM Service: ? Author Type: Employment Program Representative Type: Progress Notes Filed: 09/18/2022 5:01 PM [...] counseling consult is not indicated. Janie Woodard APRN.[facility] 09-18-2022 History of Presen t illness [...] Janie Woodard APRN.CNM documented in this encounter [facility] 09-03-2022 Miscellaneous Notes Message again left for [...] Nivia Keating RN documented in this encounter [facility] 08-26-2022 Note HNO ID: [id number] Author: Tamara Oviedo MD Service: ? Author Type: Physician Type: Progress Notes Filed: 08/26/2022 11:12 AM Note Text: Patient underwent suction DANDC for bleeding, incomplete ab on 08/26/22 after taking cytotec 08/25/22 and having heavy bleeding. D/kendall home same day. Pathology pending. Tamara Oviedo MD [facility] 08-26-2022 Note HNO ID: [id number] Author: Nivia Keating RN Service: ? Author Type: ? Type: Progress Notes Filed: 08/26/2022 8:38 AM Note Text: Patient had missed ab. She was seen in our office for 3 visits. Please bill all visits. Nivia Keating RN [facility] 08-26-2022 History of Presen t illness Narrative Patient had missed ab. She was seen in our office for 3 visits. Please bill all visits. Nivia Keating RN documented in this encounter [facility] 08-23-2022 Miscellaneous Notes Rhett Aceves is a [...] Gita Matthews APRN.CNM documented in this encounter [facility] 08-09-2022 Miscellaneous Notes [employer] message again sent to pt re: Centering program. Martha Juares LPN 2nd message left for patient to return phone call LM for patient to call back. Please ask if she was able to read over [employer] information about centering and see if she would like to get scheduled. Sara Shea MA documented in this encounter [facility] 07-30-2022 Miscellaneous Notes Opened in error. Gita Matthews APRN.CNM documented in this encounter [facility] 07-26-2022 Miscellaneous Notes S: Rhett Aceves is [...] Gita Matthews APRN.CNM documented in this encounter [facility] 07-26-2022 Harmony Taylor Ma - 07/26/2022 8:42 AM EST SEQUENTIAL SCREENINGS The [facility] offers sequential screenings for women who are [...] It will require an appointment with our solid waste landfill technician. This is not an ultrasound performed [...] the above symptoms, contact our office at [phone] and ask to speak with a nurse. After hours, you can call doctors registry at [phone] OR call [facility] at [phone] and ask to have the doctor senior instructional designer paged. If you consider this an emergency, dial 9-9-0 or go to your nearest emergency department. NEED HELP? Are you dealing with a violent or abusive relationship? Are you a victim of rape or sexual assult? Call [facility] ([place]) 24 hour Crisis Hotline: 173.849.4570 or 411-816-7946. MANUAL Your Guide to a Healthy manual is now on-line. Visit [email or web address] to download your free copy documented in this encounter [facility] 07-18-2022 Miscellaneous Notes Message about Centering option sent to patient. Gita Matthews APRN.CNM documented in this encounter [facility] 07-16-2022 Miscellaneous Notes PRAF form completed. URBAN Rudd, RN OB Clinical Navigator documented in this encounter [facility] 07-12-2022 Note HNO ID: [id number] Author: Gita Matthews APRN.CNM Service: ? 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 SBIRT Rhett Presley Ketan was given the 4P's screening tool. Rhett [...] ordered for 2 weeks Gita Matthews APRN.CNM [facility] 07-12-2022 Miscellaneous Notes NOB completed. See progress note. Gita Matthews APRN.CNM documented in this encounter [facility] documented as of this encounter (statuses as of 08/26/2022) [facility] History of Past illness Narrative* Problem Noted Date Resolved Date Obesity complicating , first trimester 07/12/2022 08/26/2022 8 weeks gestation of 07/12/2022 0 08/26/2022 Encounter for supervision of normal in teen primigravida, antepartum 07/11/2022 08/26/2022 Overview: 07/11/2022 Father of the baby involved. 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 Father the baby also attends school there.TKRN APPENDICITIS ACUTE 11/17/2008 08/26/2022 Contact dermatitis and other eczema, due to unspecified cause 07/22/2008 08/26/2022 Routine or child health check 07/07/2006 08/26/2022 Accidental poisoning by lead and its compounds and fumes(E866.0) 03/27/2005 08/26/2022 documented as of this encounter (statuses as of 08/26/2022) [facility] History of Past illness Narrative* Problem Noted Date Resolved Date Obesity complicating , first trimester 07/12/2022 08/26/2022 8 weeks gestation of 07/12/2022 0 08/26/2022 Encounter for supervision of normal in teen primigravida, antepartum 07/11/2022 08/26/2022 Overview: 07/11/2022 Father of the baby involved. 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 Father the baby also attends school there.TKRN APPENDICITIS ACUTE 11/17/2008 08/26/2022 Contact dermatitis and other eczema, due to unspecified cause 07/22/2008 08/26/2022 Routine infant or child health check 07/07/2006 08/26/2022 Accidental poisoning by lead and its compounds and fumes(E866.0) 03/27/2005 08/26/2022 documented as of this encounter (statuses as of 08/26/2022) [facility] History of Past illness Narrative* Problem Noted Date Resolved Date Obesity complicating , first trimester 07/12/2022 08/26/2022 8 weeks gestation of 07/12/2022 0 08/26/2022 Encounter for supervision of normal in teen primigravida, antepartum 07/11/2022 08/26/2022 Overview: 07/11/2022 Father of the baby involved. 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 Father the baby also attends school there.TKRN APPENDICITIS ACUTE 11/17/2008 08/26/2022 Contact dermatitis and other eczema, due to unspecified cause 07/22/2008 08/26/2022 Routine or child health check 07/07/2006 08/26/2022 Accidental poisoning by lead and its compounds and fumes(E866.0) 03/27/2005 08/26/2022 documented as of this encounter (statuses as of 08/26/2022) [facility] History of Past illness Narrative* Problem Noted Date Resolved Date Obesity complicating , first trimester 07/12/2022 08/26/2022 8 weeks gestation of 07/12/2022 0 08/26/2022 Encounter for supervision of normal in teen primigravida, antepartum 07/11/2022 08/26/2022 Overview: 07/11/2022 Father of the baby involved. 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 Father the baby also attends school there.TKRN APPENDICITIS ACUTE 11/17/2008 08/26/2022 Contact dermatitis and other eczema, due to unspecified cause 07/22/2008 08/26/2022 Routine or child health check 07/07/2006 08/26/2022 Accidental poisoning by lead and its compounds and fumes(E866.0) 03/27/2005 08/26/2022 documented as of this encounter (statuses as of 09/04/2022) [facility] History of Past illness Narrative* Problem Noted Date Resolved Date Obesity complicating , first trimester 07/12/2022 08/26/2022 8 weeks gestation of 07/12/2022 0 08/26/2022 Encounter for supervision of normal in teen primigravida, antepartum 07/11/2022 08/26/2022 Overview: 07/11/2022 Father of the baby involved. 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 Father the baby also attends school there.TKRN APPENDICITIS ACUTE 11/17/2008 08/26/2022 Contact dermatitis and other eczema, due to unspecified cause 07/22/2008 08/26/2022 Routine infant or child health check 07/07/2006 08/26/2022 Accidental poisoning by lead and its compounds and fumes(E866.0) 03/27/2005 08/26/2022 documented as of this encounter (statuses as of 11/28/2022) [facility] History of Past illness Narrative* Problem Noted Date Resolved Date 8 weeks gestation of 07/12/2022 0 08/26/2022 Encounter for supervision of normal in teen primigravida, antepartum 07/11/2022 08/26/2022 Overview: 07/11/2022 Father of the baby involved. 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 Father the baby also attends school there.TKRN APPENDICITIS ACUTE 11/17/2008 08/26/2022 Contact dermatitis and other eczema, due to unspecified cause 07/22/2008 08/26/2022 Routine or child health check 07/07/2006 08/26/2022 Accidental poisoning by lead and its compounds and fumes(E866.0) 03/27/2005 08/26/2022 documented as of this encounter (statuses as of 12/13/2022) [facility] History of Past illness Narrative* Problem Noted Date Diagnosed Date Resolved Date 8 weeks gestation of 07/12/2022 08/26/2022 Encounter for supervision of normal in teen primigravida, antepartum 07/11/2022 023 Overview: 07/11/2022 Father of the baby involved. 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 Father the baby also attends school there.TKRN APPENDICITIS ACUTE 11/17/2008 Contact dermatitis and other eczema, due to unspecified cause 07/22/2008 08/26/2022 Routine or child health check 07/07/2006 08/26/2022 Accidental poisoning by lead and its compounds and fumes(E866.0) 03/27/2005 08/26/2022 documented as of this encounter (statuses as of 12/16/2022) [facility] History of Past illness Narrative* Problem Noted Date Diagnosed Date Resolved Date 8 weeks gestation of 07/12/2022 08/26/2022 Encounter for supervision of normal in teen primigravida, antepartum 07/11/2022 023 Overview: 07/11/2022 Father of the baby involved. 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 Father the baby also attends school there.TKRN APPENDICITIS ACUTE 11/17/2008 3 Contact dermatitis and other eczema, due to unspecified cause 07/22/2008 08/26/2022 Routine infant or child health check 07/07/2006 08/26/2022 Accidental poisoning by lead and its compounds and fumes(E866.0) 03/27/2005 08/26/2022 documented as of this encounter (statuses as of 12/17/2022) [facility] History of Past illness Narrative* Problem Noted Date Diagnosed Date Resolved Date 8 weeks gestation of 07/12/2022 08/26/2022 Encounter for supervision of normal in teen primigravida, antepartum 07/11/2022 023 Overview: 07/11/2022 Father of the baby involved. 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 Father the baby also attends school there.TKRN APPENDICITIS ACUTE 11/17/2008 3 Contact dermatitis and other eczema, due to unspecified cause 07/22/2008 08/26/2022 Routine or child health check 07/07/2006 08/26/2022 Accidental poisoning by lead and its compounds and fumes(E866.0) 03/27/2005 08/26/2022 documented as of this encounter (statuses as of 12/21/2022) [facility] History of Past illness Narrative* Problem Noted Date Diagnosed Date Resolved Date 8 weeks gestation of 07/12/2022 08/26/2022 Encounter for supervision of normal in teen primigravida, antepartum 07/11/2022 023 Overview: 07/11/2022 Father of the baby involved. 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 Father the baby also attends school there.TKRN APPENDICITIS ACUTE 11/17/2008 3 Contact dermatitis and other eczema, due to unspecified cause 07/22/2008 08/26/2022 Routine or child health check 07/07/2006 08/26/2022 Accidental poisoning by lead and its compounds and fumes(E866.0) 03/27/2005 08/26/2022 documented as of this encounter (statuses as of 01/08/2023) [facility] History of Past illness Narrative* Problem Noted Date Diagnosed Date Resolved Date 8 weeks gestation of 07/12/2022 08/26/2022 Encounter for supervision of normal in teen primigravida, antepartum 07/11/2022 023 Overview: 07/11/2022 Father of the baby involved. 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 Father the baby also attends school there.TKRN APPENDICITIS ACUTE 11/17/2008 3 Contact dermatitis and other eczema, due to unspecified cause 07/22/2008 08/26/2022 Routine infant or child health check 07/07/2006 08/26/2022 Accidental poisoning by lead and its compounds and fumes(E866.0) 03/27/2005 08/26/2022 documented as of this encounter (statuses as of 01/08/2023) [facility] History of Past illness Narrative* Problem Noted Date Diagnosed Date Resolved Date 8 weeks gestation of 07/12/2022 08/26/2022 Encounter for supervision of normal in teen primigravida, antepartum 07/11/2022 023 Overview: 07/11/2022 Father of the baby involved. 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 Father the baby also attends school there.TKRN APPENDICITIS ACUTE 11/17/2008 3 Contact dermatitis and other eczema, due to unspecified cause 07/22/2008 08/26/2022 Routine infant or child health check 07/07/2006 08/26/2022 Accidental poisoning by lead and its compounds and fumes(E866.0) 03/27/2005 08/26/2022 documented as of this encounter (statuses as of 01/10/2023) [facility] History of Past illness Narrative* Problem Noted Date Diagnosed Date Resolved Date 8 weeks gestation of 07/12/2022 08/26/2022 Encounter for supervision of normal in teen primigravida, antepartum 07/11/2022 023 Overview: 07/11/2022 Father of the baby involved. 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 Father the baby also attends school there.TKRN APPENDICITIS ACUTE 11/17/2008 3 Contact dermatitis and other eczema, due to unspecified cause 07/22/2008 08/26/2022 Routine infant or child health check 07/07/2006 08/26/2022 Accidental poisoning by lead and its compounds and fumes(E866.0) 03/27/2005 08/26/2022 documented as of this encounter (statuses as of 01/15/2023) [facility] History of Past illness Narrative* Problem Noted Date Diagnosed Date Resolved Date 8 weeks gestation of 07/12/2022 08/26/2022 Encounter for supervision of normal in teen primigravida, antepartum 07/11/2022 023 Overview: 07/11/2022 Father of the baby involved. 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 Father the baby also attends school there.TKRN APPENDICITIS ACUTE 11/17/2008 3 Contact dermatitis and other eczema, due to unspecified cause 07/22/2008 08/26/2022 Routine infant or child health check 07/07/2006 08/26/2022 Accidental poisoning by lead and its compounds and fumes(E866.0) 03/27/2005 08/26/2022 documented as of this encounter (statuses as of 01/16/2023) [facility] History of Past illness Narrative* Problem Noted Date Diagnosed Date Resolved Date 8 weeks gestation of 07/12/2022 08/26/2022 Encounter for supervision of normal in teen primigravida, antepartum 07/11/2022 023 Overview: 07/11/2022 Father of the baby involved. 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 Father the baby also attends school there.TKRN APPENDICITIS ACUTE 11/17/2008 3 Contact dermatitis and other eczema, due to unspecified cause 07/22/2008 08/26/2022 Routine infant or child health check 07/07/2006 08/26/2022 Accidental poisoning by lead and its compounds and fumes(E866.0) 03/27/2005 08/26/2022 documented as of this encounter (statuses as of 01/18/2023) [facility] History of Past illness Narrative* Problem Noted Date Diagnosed Date Resolved Date 8 weeks gestation of 07/12/2022 08/26/2022 Encounter for supervision of normal in teen primigravida, antepartum 07/11/2022 023 Overview: 07/11/2022 Father of the baby involved. 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 Father the baby also attends school there.TKRN APPENDICITIS ACUTE 11/17/2008 3 Contact dermatitis and other eczema, due to unspecified cause 07/22/2008 08/26/2022 Routine infant or child health check 07/07/2006 08/26/2022 Accidental poisoning by lead and its compounds and fumes(E866.0) 03/27/2005 08/26/2022 documented as of this encounter (statuses as of 01/18/2023) [facility] History of Past illness Narrative* Problem Noted Date Diagnosed Date Resolved Date 8 weeks gestation of 07/12/2022 08/26/2022 Encounter for supervision of normal in teen primigravida, antepartum 07/11/2022 023 Overview: 07/11/2022 Father of the baby involved. 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 Father the baby also attends school there.TKRN APPENDICITIS ACUTE 11/17/2008 3 Contact dermatitis and other eczema, due to unspecified cause 07/22/2008 08/26/2022 Routine or child health check 07/07/2006 08/26/2022 Accidental poisoning by lead and its compounds and fumes(E866.0) 03/27/2005 08/26/2022 documented as of this encounter (statuses as of 01/22/2023) [facility] History of Past illness Narrative* Problem Noted Date Diagnosed Date Resolved Date 8 weeks gestation of 07/12/2022 08/26/2022 Encounter for supervision of normal in teen primigravida, antepartum 07/11/2022 023 Overview: 07/11/2022 Father of the baby involved. 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 Father the baby also attends school there.TKRN APPENDICITIS ACUTE 11/17/2008 3 Contact dermatitis and other eczema, due to unspecified cause 07/22/2008 08/26/2022 Routine or child health check 07/07/2006 08/26/2022 Accidental poisoning by lead and its compounds and fumes(E866.0) 03/27/2005 08/26/2022 documented as of this encounter (statuses as of 03/07/2023) [facility] History of Past illness Narrative* Problem Noted Date Diagnosed Date Resolved Date 8 weeks gestation of 07/12/2022 08/26/2022 Encounter for supervision of normal in teen primigravida, antepartum 07/11/2022 023 Overview: 07/11/2022 Father of the baby involved. 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 [email or web address] documented in this encounterBl[facility] Miscellaneous Notes* Quick Notes - Calista Wells RN - 07/11/2022 4:26 PM EST DISTANCE HEALTH VISIT This Team Access Model visit is a phone encounter. It required patient-provider interaction for themedical decision making as documented below. Rhett Aceves is a 17 year old female seen for PNOB. Father of the baby involved. 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 Father the baby also attends school there. Patient considering aneuploidy screening. Contact information for [facility] given to patient to check on insurance coverage. Patient declines genetic carrier screening testing.Calista Wells RN documented in this encounterBl[facility] Miscellaneous Notes* Telephone Encounter - Nivia Keating RN - 07/02/2022 4:22 PM EST PNOB scheduled. Nivia Keating RN * Telephone Encounter - Calista Wells RN - 07/02/2022 8:46 AM EST Left message for patient to return phone call. Patient has an appointment with Gita Matthews for NOB appointment. Please schedule PNOB appointment. There are openings this and next [facility] Encounter for supervision of normal in teen primigravida, antepartum- Primary documented in this encounter [facility]* Diagnosis Encounter for supervision of normal in teen primigravida, antepartum- Primary 8 weeks gestation of state, incidental Obesity complicating , first trimester documented in this encounter [facility] note* Diagnosis Encounter for supervision of normal in teen primigravida, antepartum- Primary documented in this encounter [facility] note* Diagnosis Obesity complicating , first trimester- Primary 8 weeks gestation of state, incidental care in first trimester- Primary documented in this encounter [facility] note* Diagnosis care in first trimester- Primary documented in this encounter [facility] note* Diagnosis Encounter for supervision of normal in teen primigravida, antepartum documented in this encounter [facility] note* Diagnosis Non-viable - Primary Other abnormal products of conception documented in this encounter [facility] note* Diagnosis Missed - Primary Miscarriage Unspecified spontaneous without mention of complication [facility] Diagnosis Missed - Primary documented in this [facility]* Diagnosis Current with history of spontaneous during prior - Primary Obesity during Patient request for diagnostic testing Other specified examination [facility] Diagnosis with uncertain dates in first trimester- Primary [facility]* Diagnosis 11 weeks gestation of - Primary state, incidental Obesity during [facility] Diagnosis Encounter for screening for nuchal translucency- Primary 12 weeks gestation of state, incidental [facility]* Diagnosis Encounter for (NT) nuchal translucency scan- Primary Other specified screening Current with history of spontaneous during prior [facility]* Diagnosis Anemia complicating , second trimester- Primary [facility]* Diagnosis 23 weeks gestation of - Primary state, incidental Obesity affecting in second trimester, unspecified obesity type Anemia complicating , second trimester [facility]* Diagnosis 27 weeks gestation of - Primary state, incidental Obesity affecting in second trimester, unspecified obesity type Anemia complicating , second trimester Supervision of other high risk pregnancies, third trimester [facility]* Diagnosis Abnormal glucose complicating - Primary Abnormal maternal glucose tolerance, complicating , childbirth, or the puerperium, unspecified as to episode of care documented in this encounter [facility]* Diagnosis 30 weeks gestation of - Primary state, incidental Other obesity affecting in third trimester documented in this encounter [facility] for referral (narrative)* Diagnostic Procedure Only (Routine) - Authorized Specialty Diagnoses / Procedures Referred By Chioma velazquez Referred To Contact [facility] Diagnoses Encounter for supervision of normal in teen primigravida, antepartum Procedures OBSTETRIC ULTRASOUND WHI US PREG UTERUS AFTER 1ST TRIMEST GESTATION Gita Matthews APRN.JACI [address] [address] [facility] [address] [place] [id number] Referral ID Status Reason Start Date Expiration Date Visits Requested Visits Authorized [id number] Authorized Auto-Generat ed Referral 07/12/2022 07/12/2023 1 1 * Diagnostic Procedure Only (Routine) - Pending Review Specialty Diagnoses / Procedures Referred By Chioma velazquez Referred To Contact [facility] Diagnoses Encounter for supervision of normal in teen primigravida, antepartum 8 weeks gestation of Procedures OBSTETRIC ULTRASOUND WHI US PREG UTERUS AFTER 1ST TRIMEST GESTATION Gita Matthews APRN.CNM [address] [place] [address] [address] Referral ID Status Reason Start Date Expiration Date Visits Requested Visits Authorized [id number] Pending Review Auto-Generat ed Referral 07/12/2022 07/12/2023 1 1 [facility] for referral (narrative)* Diagnostic Procedure Only (Routine) - Authorized Specialty Diagnoses / Procedures Referred By Chioma velazquez Referred To Contact [facility] Diagnoses Obesity complicating , first trimester 8 weeks gestation of Procedures NUCHAL TRANSLUCENCY WHI US NUCHAL TRANSLUCENCY GESTATION Gita Mtathews APRN.CNM [address] [place] [address] [address] Referral ID Status Reason Start Date Expiration Date Visits Requested Visits Authorized [id number] Authorized Auto-Generat ed Referral 07/26/2022 07/26/2023 1 1 [facility] for referral (narrative)* Outpatient Procedure (Routine) - Pending Review Specialty Diagnoses / Procedures Referred By Chioma velazquez Referred To Contact [facility] Diagnoses Obesity affecting in second trimester, unspecified obesity type Supervision of other high risk pregnancies, third trimester Procedures NON-STRESS TEST NON-STRESS TEST Tamara Oviedo MD [address] [place] [address] [facility] [address] [place] [address] Referral ID Status Reason Start Date Expiration Date Visits Requested Visits Authorized [id number] Pending Review Auto-Generat ed Referral 3 04/29/2024 10 1 * Diagnostic Procedure Only (Routine) - Authorized Specialty Diagnoses / Procedures Referred By Contac t Referred To Contact [facility] [place] Diagnoses Obesity affecting in second trimester, unspecified obesity type Supervision of other high risk pregnancies, third trimester Procedures OBSTETRIC ULTRASOUND WHI US PREG UTERUS AFTER 1ST TRIMEST GESTATION Tamara Oviedo MD [address] [place] [address] [facility] [address] [place] [address] Referral ID Status Reason Start Date Expiration Date Visits Requested Visits Authorized [id number] Authorized Auto-Generat ed Referral 3 04/29/2024 2 1 [facility] for visit Narrative* Diagnostic Procedure Only (Routine) - Closed Specialty Diagnoses / Procedures Referred By Contac t Referred To Contact [facility] [place] Diagnoses Encounter for supervision of normal in teen primigravida, antepartum Procedures OBSTETRIC ULTRASOUND WHI US PREG UTERUS AFTER 1ST TRIMEST GESTATION Gita Matthews APRN.CHRIS [address] [place] [address] [facility] [address] [place] [address] Referral ID Status Reason Start Date Expiration Date V isits Requested Visits Authorized [id number] Closed Auto-Generate d Referral 07/12/2022 07/12/2023 1 1 [facility] Summary Purpose Family History No Family History [...] through Care Everywhere. * Lacerations: Stitches: Pediatric (French) documented in this encounter Assessments Diagnosis Laceration [...] DATE CREATED AUTHOR AUTHOR'S ORGANIZ ATION 05/13/2022 [facility] DATE CREATED AUTHOR AUTHOR'S ORGANIZ ATION 07/01/2023 [facility] Reason for Visit (unrecogniz ed section and content) Reason Comments Future Appointment Reason Comments Care Reason Comments [employer] - Other PRAF Reason Onset Date Comments Care 07/26/2022 Reason Comments Appointment Reason Comments US Specialty Diagnoses / Procedures [facility] Contact [facility] [place] Diagnoses Obesity complicating , first trimester 8 weeks gestation of Procedures NUCHAL TRANSLUCENCY WHI US NUCHAL TRANSLUCENCY 1ST GESTATION Gita Matthews APRN.CNM [address] [place] [address] [facility] [address] [place] [address] Referral ID Status Reason Start Date Expiration Date V isits Requested Visits Authorized [id number] Closed Auto-Generate d Referral 07/26/2022 07/26/2023 1 1 Reason Comments Post Op Reason Comments Post Op Reason Comments PRAF- initial Reason Comments Results Reason Onset Date Comments Care 01/08/2023 Reason Comments upcoming omayra Reason Comments Orders Specialty Diagnoses / Procedures [facility] Contact [facility] [place] Diagnoses Current with history of spontaneous during prior Procedures NUCHAL TRANSLUCENCY WHI US NUCHAL TRANSLUCENCY 1ST GESTATION Gita Matthews APRN.CNM [address] [place] [address] [facility] [address] [place] [address] Referral ID Status Reason Start Date Expiration Date V isits Requested Visits Authorized [id number] Closed Auto-Generate d Referral 12/16/2022 12/16/2023 1 [...] or prosecute any alcohol or drug abuse patient.[facility] System[facility] the event this information is protected by the Federal Confidentiality of Alcohol and Drug Abuse Patient Records regulations: The Federal rules restrict any use of the information to criminally investigate or prosecute any alcohol or drug abuse patient.[facility] System[facility] the event this information is protected by the Federal Confidentiality of Alcohol and Drug Abuse Patient Records regulations: The Federal rules restrict any use of the information to criminally investigate or prosecute any alcohol or drug abuse patient.[facility] SystemIn the event this information is protected by the Federal Confidentiality of Alcohol and Drug Abuse Patient Records regulations: The Federal rules restrict any use of the information to criminally investigate or prosecute any alcohol or drug abuse patient.[facility] SystemIn the event this information is protected by the Federal Confidentiality of Alcohol and Drug Abuse Patient Records regulations: The Federal rules restrict any use of the information to criminally investigate or prosecute any alcohol or drug abuse patient.[facility] SystemIn the event this information is protected by the Federal Confidentiality of Alcohol and Drug Abuse Patient Records regulations: The Federal rules restrict any use of the information to criminally investigate or prosecute any alcohol or drug abuse patient.[facility] SystemIn the event this information is protected by the Federal Confidentiality of Alcohol and Drug Abuse Patient Records regulations: The Federal rules restrict any use of the information to criminally investigate or prosecute any alcohol or drug abuse patient.[facility] SystemIn the event this information is protected by the Federal Confidentiality of Alcohol and Drug Abuse Patient Records regulations: The Federal rules restrict any use of the information to criminally investigate or prosecute any alcohol or drug abuse patient.[facility] System[facility] the event this information is protected by the Federal Confidentiality of Alcohol and Drug Abuse Patient Records regulations: The Federal rules restrict any use of the information to criminally investigate or prosecute any alcohol or drug abuse patient.[facility] SystemIn the event this information is protected by the Federal Confidentiality of Alcohol and Drug Abuse Patient Records regulations: The Federal rules restrict any use of the information to criminally investigate or prosecute any alcohol or drug abuse patient.[facility] SystemIn the event this information is protected by the Federal Confidentiality of Alcohol and Drug Abuse Patient Records regulations: The Federal rules restrict any use of the information to criminally investigate or prosecute any alcohol or drug abuse patient.[facility] SystemIn the event this information is protected by the Federal Confidentiality of Alcohol and Drug Abuse Patient Records regulations: The Federal rules restrict any use of the information to criminally investigate or prosecute any alcohol or drug abuse patient.[facility] SystemIn the event this information is protected by the Federal Confidentiality of Alcohol and Drug Abuse Patient Records regulations: The Federal rules restrict any use of the information to criminally investigate or prosecute any alcohol or drug abuse patient.[facility] SystemIn the event this information is protected by the Federal Confidentiality of Alcohol and Drug Abuse Patient Records regulations: The Federal rules restrict any use of the information to criminally investigate or prosecute any alcohol or drug abuse patient.[facility] SystemIn the event this information is protected by the Federal Confidentiality of Alcohol and Drug Abuse Patient Records regulations: The Federal rules restrict any use of the information to criminally investigate or prosecute any alcohol or drug abuse patient.[facility] SystemIn the event this information is protected by the Federal Confidentiality of Alcohol and Drug Abuse Patient Records regulations: The Federal rules restrict any use of the information to criminally investigate or prosecute any alcohol or drug abuse patient.[facility] SystemIn the event this information is protected by the Federal Confidentiality of Alcohol and Drug Abuse Patient Records regulations: The Federal rules restrict any use of the information to criminally investigate or prosecute any alcohol or drug abuse patient.[facility] SystemIn the event this information is protected by the Federal Confidentiality of Alcohol and Drug Abuse Patient Records regulations: The Federal rules restrict any use of the information to criminally investigate or prosecute any alcohol or drug abuse patient.[facility] SystemIn the event this information is protected by the Federal Confidentiality of Alcohol and Drug Abuse Patient Records regulations: The Federal rules restrict any use of the information to criminally investigate or prosecute any alcohol or drug abuse patient.[facility] SystemIn the event this information is protected by the Federal Confidentiality of Alcohol and Drug Abuse Patient Records regulations: The Federal rules restrict any use of the information to criminally investigate or prosecute any alcohol or drug abuse patient.[facility] SystemIn the event this information is protected by the Federal Confidentiality of Alcohol and Drug Abuse Patient Records regulations: The Federal rules restrict any use of the information to criminally investigate or prosecute any alcohol or drug abuse patient.[facility] SystemIn the event this information is protected by the Federal Confidentiality of Alcohol and Drug Abuse Patient Records regulations: The Federal rules restrict any use of the information to criminally investigate or prosecute any alcohol or drug abuse patient.[facility] SystemIn the event this information is protected by the Federal Confidentiality of Alcohol and Drug Abuse Patient Records regulations: The Federal rules restrict any use of the information to criminally investigate or prosecute any alcohol or drug abuse patient.[facility] SystemIn the event this information is protected by the Federal Confidentiality of Alcohol and Drug Abuse Patient Records regulations: The Federal rules restrict any use of the information to criminally investigate or prosecute any alcohol or drug abuse patient.[facility] SystemIn the event this information is protected by the Federal Confidentiality of Alcohol and Drug Abuse Patient Records regulations: The Federal rules restrict any use of the information to criminally investigate or prosecute any alcohol or drug abuse patient.[facility] SystemIn the event this information is protected by the Federal Confidentiality of Alcohol and Drug Abuse Patient Records regulations: The Federal rules restrict any use of the information to criminally investigate or prosecute any alcohol or drug abuse patient.[facility] SystemIn the event this information is protected by the Federal Confidentiality of Alcohol and Drug Abuse Patient Records regulations: The Federal rules restrict any use of the information to criminally investigate or prosecute any alcohol or drug abuse patient.[facility] SystemIn the event this information is protected by the Federal Confidentiality of Alcohol and Drug Abuse Patient Records regulations: The Federal rules restrict any use of the information to criminally investigate or prosecute any alcohol or drug abuse patient.[facility] SystemIn the event this information is protected by the Federal Confidentiality of Alcohol and Drug Abuse Patient Records regulations: The Federal rules restrict any use of the information to criminally investigate or prosecute any alcohol or drug abuse patient.[facility] SystemIn the event this information is protected by the Federal Confidentiality of Alcohol and Drug Abuse Patient Records regulations: The Federal rules restrict any use of the information to criminally investigate or prosecute any alcohol or drug abuse patient.[facility] SystemIn the event this information is protected by the Federal Confidentiality of Alcohol and Drug Abuse Patient Records regulations: The Federal rules restrict any use of the information to criminally investigate or prosecute any alcohol or drug abuse patient.[facility] SystemIn the event this information is protected by the Federal Confidentiality of Alcohol and Drug Abuse Patient Records regulations: The Federal rules restrict any use of the information to criminally investigate or prosecute any alcohol or drug abuse patient.[facility] SystemIn the event this information is protected by the Federal Confidentiality of Alcohol and Drug Abuse Patient Records regulations: The Federal rules restrict any use of the information to criminally investigate or prosecute any alcohol or drug abuse patient.[facility] SystemIn the event this information is protected by the Federal Confidentiality of Alcohol and Drug Abuse Patient Records regulations: The Federal rules restrict any use of the information to criminally investigate or prosecute any alcohol or drug abuse patient.[facility] SystemIn the event this information is protected by the Federal Confidentiality of Alcohol and Drug Abuse Patient Records regulations: The Federal rules restrict any use of the information to criminally investigate or prosecute any alcohol or drug abuse patient.[facility] SystemIn the event this information is protected by the Federal Confidentiality of Alcohol and Drug Abuse Patient Records regulations: The Federal rules restrict any use of the information to criminally investigate or prosecute any alcohol or drug abuse patient.[facility] SystemIn the event this information is protected by the Federal Confidentiality of Alcohol and Drug Abuse Patient Records regulations: The Federal rules restrict any use of the information to criminally investigate or prosecute any alcohol or drug abuse patient.[facility] SystemIn the event this information is protected by the Federal Confidentiality of Alcohol and Drug Abuse Patient Records regulations: The Federal rules restrict any use of the information to criminally investigate or prosecute any alcohol or drug abuse patient.[facility] Care Teams (unrecognized sec tion and content) Beef Splitter Relationship Specialty Start Date End Date Edison Trejo PCP - General Pediatrics 08/16/12 Beef Splitter Relationship Specialty Start Date End Date Edison Trejo PCP - General Pediatrics 08/16/12 Beef Splitter Relationship Specialty Start Date End Date Edison Trejo PCP - General Pediatrics 08/16/12 Beef Splitter Relationship Specialty Start Date End Date Edison Trejo Eva PCP - General Pediatrics 08/16/12 Beef Splitter Relationship Specialty Start Date End Date Edison Trejo Eva PCP - General Pediatrics 08/16/12 Beef Splitter Relationship Specialty Start Date End Date Edison Trejo Eva PCP - General Pediatrics 08/16/12 Beef Splitter Relationship Specialty Start Date End Date Edison Trejo Eva PCP - General Pediatrics 08/16/12 Beef Splitter Relationship Specialty Start Date End Date Edison Trejo Eva PCP - General Pediatrics 08/16/12 Beef Splitter Relationship Specialty Start Date End Date Edison Trejo Eva PCP - General Pediatrics 08/16/12 Beef Splitter Relationship Specialty Start Date End Date Edison Trejo Eva PCP - General Pediatrics 08/16/12 Beef Splitter Relationship Specialty Start Date End Date Abel Gupta [facility] [address] [place] [address] PCP - General 07/16/04 08/15/[address] [facility] [address] [place] [address] PCP - General Pediatrics 08/16/12 Beef Splitter Relationship Specialty Start Date End Date TrejoShreeazael Velasquez PCP - General Pediatrics 08/16/12 Beef Splitter Relationship Specialty Start Date End Date Edison Trejo Eva PCP - General Pediatrics 08/16/12 Beef Splitter Relationship Specialty Start Date End Date TrejoShreeazael Velasquez PCP - General Pediatrics 08/16/12 Beef Splitter Relationship Specialty Start Date End Date Edison Trejo PCP - General Pediatrics 08/16/12 Beef Splitter Relationship Specialty Start Date End Date Edison Trejo PCP - General Pediatrics 08/16/12 Beef Splitter Relationship Specialty Start Date End Date Edison Trejo PCP - General Pediatrics 08/16/12 Beef Splitter Relationship Specialty Start Date End Date Edison Trejo PCP - General Pediatrics 08/16/12 Beef Splitter Relationship Specialty Start Date End Date Edison Trejo PCP - General Pediatrics 08/16/12 Beef Splitter Relationship Specialty Start Date End Date Edison Trejo PCP - General Pediatrics 08/16/12 Beef Splitter Relationship Specialty Start Date End Date Edison Trejo PCP - General Pediatrics 08/16/12 Beef Splitter Relationship Specialty Start Date End Date Edison Trejo MD (Fax) PCP - General Pediatrics 08/16/12 Beef Splitter Relationship Specialty Start Date End Date Edison Trejo MD (Fax) PCP - General Pediatrics 08/16/12 Beef Splitter Relationship Specialty Start Date End Date Edison Trejo MD (Fax) PCP - General Pediatrics 08/16/12 Beef Splitter Relationship Specialty Start Date End Date Edison Trejo MD PCP - General Pediatrics 08/16/12 Beef Splitter Relationship Specialty Start Date End Date Edison [...] BE BASED ON THE PRIMARY CLINICAL RECORDS. [facility]. provides no warranty or guarantee of the accuracy or completeness of information in this document.
[2023-07-04 12:51] VITALS: BP 134/81; PULSE 91; RESP 16; TEMP 36.1; O2SAT 99
== END 2023-07-04 11:10 | disposition home or self-care (01) ==
LOC: MEDOUTP 11:10
PROVIDERS: PCP Pediatrics; Referring Provider Obstetrics & Gynecology; Visit Provider Obstetrics & Gynecology
DX: O99.013 Anemia complicating pregnancy, third trimester (principal); K90.9 Intestinal malabsorption, unspecified; O99.619 Diseases of the digestive system complicating pregnancy, unspecified trimester; Z3A.00 Weeks of gestation of pregnancy not specified
CPT/HCPCS: 96365; J1756; J7050; A4216

== ENCOUNTER 2023-07-07 12:32 | Outpatient (CLI) | payer MEDICAID, SELFPAY ==
--- OUTSIDE RECORDS SUMMARY | 2023-07-07 12:56 | XMS RPT_ITS | CCD ---
Author Name Unknown Address [address] [facility] [address] [place] [address] Organization [facility] Care Team Providers Care Motion Picture Projectionist Name Role Phone PROVIDER, UNKNOWN Unavailable Unavailable PROVIDER, UNKNOWN Unavailable Unavailable Edison Trejo Unavailable Unavailable Edison Trejo Primary Care Provider REFERRED, SELF Referring Unavailable EDISON TREJO Primary Care Unavailable STEFANY PARTIDA Attending Unavailable EDISNO TREJO Primary Care Unavailable STEFANY PARTIDA Attending Unavailable STEFANY PARTIDA Referring Unavailable STEFANY PARTIDA Referring Unavailable EDISON TREJO Primary Care Unavailable STEFANY PARTIDA Attending Unavailable REFERRED, SELF Referring Unavailable ABBI GARCIA Attending Unavailable EDISON TREJO Primary Care Unavailable Edison Trejo Primary Care Provider Abel Gupta Primary Care Provider Edison Trejo Primary Care Provider Edison Trejo MD Primary Care Provider GITA MATTHEWS Referring Unavailable EDISON TREJO Primary Care Unavailable EDISON TREJO Primary Care Unavailable TAMARA OVIEDO Referring Unavailable EDISON TREJO Primary Care Unavailable PREET TAMARA L Referring Unavailable PREET TAMARA L Attending Unavailable EDISON TREJO Primary Care Unavailable PREET TAMARA Carolyn Referring Unavailable LEXY PAREDES Attending Unavailable EDISON TREJO Primary Care Unavailable PREET TAMARA Carolyn Referring Unavailable EDISON TREJO Primary Care Unavailable PREET TAMARA Carolyn Referring Unavailable LEXY PAREDES Attending Unavailable EDISON TREJO Primary Care Unavailable PREET TAMARA Carolyn Referring Unavailable EDISON TREJO Primary Care Unavailable PREET TAMARA L Referring Unavailable GITA MATTHEWS Referring Unavailable EDISON TREJO Primary Care Unavailable JANIE WOODARD Attending Unavailable TREJO, EDISON EVA Primary Care [...] Unavailable TREJO, EDISON EVA Primary Care Unavailable LEXY PAREDES Referring Unavailable TREJO, EDISON EVA Primary Care Unavailable JANIE WOODARD Attending Unavailable TREJO, EDISON EVA Primary Care Unavailable PLOTTS, GITA Referring Unavailable TREJO, EDISON EVA Primary Care Unavailable TREJO, EDISON EVA Primary Care Unavailable PREET TAMARA L Referring Unavailable TREJO, EDISON EVA Primary Care Unavailable PLOTTS, GITA Attending Unavailable PLOTTS, GITA Referring Unavailable TREJO, EDISON EVA Primary Care Unavailable PLOTTS, GITA Referring Unavailable TREJO, EDISON VELASQUEZ Primary Care Unavailable PLOTTS, GITA Attending Unavailable TREJO, EDISON EVA Primary Care Unavailable PLOTTS, GITA Referring Unavailable TREJO, EDISON VELASQUEZ Primary Care Unavailable PAPI FRIEND Attending Unavailable PLOTTS, GITA Attending Unavailable PLOTTS, GITA Referring Unavailable TREJO, EDISON EVA Primary Care Unavailable TREJO, EDISON EVA Primary Care Unavailable TAMARA OVIEDO Attending Unavailable PLOTTS, GITA Referring Unavailable TREJO, EDISON EVA Primary Care Unavailable PLOTTS, GITA Attending Unavailable TREJO, EDISON EVA Primary Care Unavailable TREJO, EDISON EVA Primary Care Unavailable PREET TAMARA L Referring Unavailable TREJO, EDISON EVA Primary Care Unavailable PREET TAMARA L Attending Unavailable PREET TAMARA L Referring Unavailable PLOTTS, GITA Referring Unavailable PLOTTS, GITA Attending Unavailable TREJO, EDISON EVA Primary Care Unavailable LEXY PAREDES Attending Unavailable TREJO, EDISON EVA Primary Care Unavailable PREET TAMARA L Referring Unavailable TREJO, EDISON EVA Primary Care Unavailable JANIE WOODARD Attending Unavailable TREJO, EDISON EVA Primary Care Unavailable PLOTTS, GITA Referring Unavailable TREJO, EDISON EVA Primary Care Unavailable PLOTTS, GITA Referring Unavailable TREJO, EDISON EVA Primary Care Unavailable VIRGILIO STANTON Attending Unavailable PLOTTS, GITA Attending Unavailable PLOTTS, GITA Referring Unavailable TREJO, EDISON EVA Primary Care Unavailable Allergies Allergy Classification Reported Allergen(s) Allergy Type Date of Onset Reaction(s) Facility (2 sources) Penicillins; Translations: [PENICILLINS] Propensity to adverse reactions to drug 7 [place] (1 source) prednisoLONE; Translations: [PREDNISOLONE] Drug Allergy [facility] Repository (20 sources) predniSONE; Translations: [PREDNISONE] Drug Allergy 7 Vomiting [facility] Work Phone: (5 sources) Penicillins Drug Allergy 7 Other: See Comments [facility] Medications Current Medications Medication Drug Class(es) [...] Drug Class(es) Dates Sig (Normalized) Sig (Original) [id number] 200 actuat albuterol 0.09 mg/actuat metered dose [...] in second trimester, unspecified obesity type] Onset: 06-19-2023 Chronic Other complications of (1 source) Obesity complicating , third trimester; Translations: [Obesity affecting in third trimester, unspecified obesity type] Onset: 06-12-2023 Chronic Other complications of (2 sources) Anemia [...] other high risk pregnancies, third trimester] Onset: 06-19-2023 Episodic Poisoning by nonmedicinal substances (11 sources) [...] source) Missed ; Translations: [Missed ] Onset: 09-18-2022 Episodic Other complications of (1 source) Other [...] [Encounter for screening for nuchal translucency] Onset: 01-15-2023 Episodic Residual codes; unclassified (1 source) 15 [...] 08:09-0500 Body weight 91.99 kg Gita Plotts RISK INTERN.CNM Work Phone: [facility] 05-22-2023 08:09-0500 Diastolic blood pressure 70 mm[Hg] Gita Plotts RISK INTERN.CNM Work Phone: [facility] 05-22-2023 08:09-0500 Systolic blood pressure 114 mm[Hg] Gita Plotts RISK INTERN.CNM Work Phone: [facility] 04-30-2023 15:36-0500 Body weight 89.36 kg Tamara Oviedo MD Work Phone: [facility] 04-30-2023 15:36-0500 Diastolic blood pressure 74 mm[Hg] Tamara Oviedo MD Work Phone: [facility] 04-30-2023 15:36-0500 Systolic blood pressure 116 mm[Hg] Tamara Oviedo MD Work Phone: [facility] 04-02-2023 09:24-0400 Body weight 90.17 kg Gita Plotts RISK INTERN.CNM Work Phone: [facility] 04-02-2023 09:24-0400 Diastolic blood pressure 80 mm[Hg] Gita Plotts RISK INTERN.CNM Work Phone: [facility] 04-02-2023 09:24-0400 Systolic blood pressure 120 mm[Hg] Gita Plotts RISK INTERN.CNM Work Phone: [facility] 01-08-2023 09:42-0400 Body weight 88.45 kg Gita Plotts RISK INTERN.CNM Work Phone: [facility] 01-08-2023 09:42-0400 Diastolic blood pressure 76 mm[Hg] Gita Plotts RISK INTERN.CNM Work Phone: [facility] 01-08-2023 09:42-0400 Systolic blood pressure 120 mm[Hg] Gita Plotts RISK INTERN.CNM Work Phone: [facility] 09-18-2022 15:46-0400 Body weight 89.36 kg Janie Woodard RISK INTERN.CNM Work Phone: [facility] 09-18-2022 15:46-0400 Diastolic blood pressure 72 mm[Hg] Janie Woodard RISK INTERN.CNM Work Phone: [facility] 09-18-2022 15:46-0400 Systolic blood pressure 122 mm[Hg] Janie Woodard RISK INTERN.CNM Work Phone: [facility] 07-26-2022 08:44-0500 Body weight 90.27 kg Gita Plotts RISK INTERN.CNM Work Phone: [facility] 07-26-2022 08:44-0500 Diastolic blood pressure 72 mm[Hg] Gita Plotts RISK INTERN.CNM Work Phone: [facility] 07-26-2022 08:44-0500 Systolic blood pressure 114 mm[Hg] Gita Plotts RISK INTERN.CNM Work Phone: [facility] 07-12-2022 14:06-0500 Body height 161.3 cm Gita Plotts RISK INTERN.CNM Work Phone: [facility] 07-12-2022 13:13-0500 Body weight 89.9 kg Gita Plotts RISK INTERN.CNM Work Phone: [facility] 07-12-2022 13:13-0500 Diastolic blood pressure 78 mm[Hg] Gita Plotts RISK INTERN.CNM Work Phone: [facility] 07-12-2022 13:13-0500 Systolic blood pressure 120 mm[Hg] Gita Plotts RISK INTERN.CNM Work Phone: [facility] 09-26-2019 16:24-0400 Body Temperature 97.81 [degF] Goran [place] 09-26-2019 16:24-0400 Body weight 49.44 kg Goran Henderson [facility] [place] 09-26-2019 16:24-0400 BP Diastolic 74 mm[Hg] Goran Henderson [facility] [place] 09-26-2019 16:24-0400 BP Systolic 127 mm[Hg] Goran Henderson [facility] , [place] 09-26-2019 16:24-0400 Pulse (Heart Rate) 109 /min Goran Henderson [facility], [place] 09-26-2019 16:24-0400 Pulse Oximetry 100 % Goran Henderson [facility] , [place] 09-26-2019 16:24-0400 Respiratory Rate 16 /min Goran Henderson [facility] [place] [place] Encounters Encounter Date Encounter Type Care Provider Facility Start: 07-04-2023 End: 07-04-2023 ambulatory JANIE WOODARD Facility:[facility] Start: 06-30-2023 End: 07-01-2023 ambulatory LEXY PAREDES Facility:[facility] Start: 06-27-2023 End: 06-27-2023 ambulatory LEXY PAREDES Facility:[facility] Start: 06-19-2023 End: 06-20-2023 ambulatory EDISON TREJO Facility:[facility] Start: 06-12-2023 End: 06-12-2023 ambulatory LEXY PAREDES Facility:[facility] Start: 06-06-2023 End: 06-06-2023 ambulatory LEXY PAREDES Facility:[facility] Start: 05-30-2023 End: 05-30-2023 ambulatory EDISON TREJO Facility:[facility] Start: 05-30-2023 End: 05-31-2023 ambulatory GITA MATTHEWS Facility:[facility] Start: 05-22-2023 End: 05-22-2023 ambulatory GITA MATTHEWS Facility:[facility] Start: 05-22-2023 End: 05-22-2023 Patient encounter procedure Gita Matthews APRN.CNM Work Phone: OB/Gynecology Procedures Date Procedure Procedure Detail Performing Clinician Start: 04-30-2023 URINE OB DIP B/O Luis Oviedo MD Work Phone: Start: 04-02-2023 URINE OB DIP B/O Jama Venegasts RISK INTERN.CNM Work Phone: Start: 01-15-2023 Antibody screen JUAN JOSÉMASOUD MATTHEWS Plan of Treatment Date Care Activity Detail Author Start: 09-25-2029 Urine microalbumin profile [facility] Start: 12-17-2023 CHLAMYDIA SCREENING (18-24) CHLAMYDIA SCREENING (18-24) [facility] Start: 12-17-2023 GC (GONORRHEA) SCREENING (18-24) GC (GONORRHEA) SCREENING (18-24) [facility] Start: 12-17-2023 Screening for Chlamydia trachomatis Chlamydia Screening (18-24) [facility] Start: 07-12-2023 CHLAMYDIA SCREENING (18-24) CHLAMYDIA SCREENING (18-24) [facility] Start: 07-12-2023 GC (GONORRHEA) SCREENING (18-24) GC (GONORRHEA) SCREENING (18-24) [facility] Start: 05-30-2023 RSV Vaccine (1 - Risk 1-dose series) RSV Vaccine (1 - Risk 1-dose series) [facility] Start: 05-08-2023 End: 08-07-2023 GEST GLUC GERMAINE, 3-HR, 100 GM, FASTING GEST GLUC GERMAINE, 3-HR, 100 GM, FASTING Lab Routine Abnormal glucose complicating Expected: 05/08/2023, Expires: 08/07/2023 [facility] Work Phone: Immunizations Immunization Date Immunization Notes Care Provider Fa cili 05-09-2022 meningococcal B vaccine, recombinant, OMV, adjuvanted Tamara Oviedo MD Work Phone: [facility] Work Phone: 04-03-2022 meningococcal B vaccine, recombinant, OMV, adjuvanted Tamara Oviedo MD Work Phone: [facility] Work Phone: 04-24-2020 meningococcal polysaccharide (groups A, C, Y and W-135) diphtheria toxoid conjugate vaccine (MCV4P) Tamara Oviedo MD Work Phone: [facility] Work Phone: 09-26-2019 diphtheria, tetanus toxoids and acellular pertussis vaccine, unspecified formulation [facility] [place] [facility] [place] 09-26-2019 tetanus toxoid, redu kendall diphtheria toxoid, and acellular pertussis vaccine, adsorbed [facility] Work Phone: 07-08-2017 hepatitis A vaccine, pediatric/adolescent dosage, 2 dose schedule Tamara Oviedo MD Work Phone: [facility] Work Phone: 07-08-2017 Human Papillomavirus 9-valent vaccine Tamara Oviedo MD Work Phone: [facility] Work Phone: 07-04-2016 hepatitis A vaccine, pediatric/adolescent dosage, 2 dose schedule Tamara Oviedo MD Work Phone: [facility] Work Phone: 07-04-2016 Human Papillomavirus 9-valent vaccine Tamara Oviedo MD Work Phone: [facility] Work Phone: 10-17-2014 meningococcal polysaccharide (groups A, C, Y and W-135) diphtheria toxoid conjugate vaccine (MCV4P) Tamara Oviedo MD Work Phone: [facility] Work Phone: 10-17-2014 tetanus toxoid, redu kendall diphtheria toxoid, and acellular pertussis vaccine, adsorbed Tamara Oviedo MD Work Phone: [facility] Work Phone: 02-25-2012 influenza, seasonal, injectable Tamara Oviedo MD Work Phone: [facility] Work Phone: 02-25-2012 influenza virus vaccine, unspecified formulation Grounds And Nursery Specialist JIM [facility] 01-24-2009 varicella virus vaccine Jacob Matthews RISK INTERN.CNM Work Phone: [facility] Work Phone: 07-14-2007 diphtheria, tetanus toxoids and acellular pertussis vaccine Gita Matthews RISK INTERN.CNDavid Work Phone: [facility] Work Phone: 07-14-2007 measles, mumps and rubella virus vaccine Gita Venegasdilip RISK INTERN.CNM Work Phone: [facility] Work Phone: 07-14-2007 pneumococcal conjuga te vaccine, 7 valent Tamara Oviedo MD Work Phone: [facility] Work Phone: 07-14-2007 poliovirus vaccine, inactivated Gita Venegasts RISK INTERN.CNM Work Phone: [facility] Work Phone: 07-07-2006 influenza virus vaccine, unspecified formulation Gita Plotts RISK INTERN.CN Work Phone: [facility] Work Phone: 03-27-2005 haemophilus influenz ae type b vaccine, HbOC conjugate Gita Venegasts RISK INTERN.CN Work Phone: [facility] Work Phone: 03-27-2005 pneumococcal conjuga te vaccine, 7 valent Gita Rubidilip RISK INTERN.CNM Work Phone: [facility] Work Phone: 12-20-2004 diphtheria, tetanus toxoids and acellular pertussis vaccine Gita Plotdilip RISK INTERN.CNM Work Phone: [facility] Work Phone: 12-20-2004 measles, mumps and rubella virus vaccine Gita Rubits RISK INTERN.CNM Work Phone: [facility] Work Phone: 12-20-2004 varicella virus vaccine Jacob Matthews RISK INTERN.CNM Work Phone: [facility] Work Phone: 07-05-2004 measles, mumps and rubella virus vaccine Tamara Oviedo MD Work Phone: [facility] Work Phone: 04-04-2004 influenza virus vaccine, whole virus Tamara Oviedo MD Work Phone: [facility] Work Phone: 04-04-2004 pneumococcal conjuga te vaccine, 7 valent Tamara Oviedo MD Work Phone: [facility] Work Phone: 04-04-2004 poliovirus vaccine, inactivated Gita Plotts RISK INTERN.CNM Work Phone: [facility] Work Phone: 2003 diphtheria, tetanus toxoids and acellular pertussis vaccine Gita Plotts RISK INTERN.CNM Work Phone: [facility] Work Phone: 2003 haemophilus influenz ae type b conjugate and Hepatitis B vaccine Tamara Oviedo MD Work Phone: [facility] Work Phone: 2003 haemophilus influenz ae type b vaccine, HbOC conjugate Gita Plotts RISK INTERN.CNM Work Phone: [facility] Work Phone: 2003 hepatitis B vaccine, pediatric or pediatric/adolescent dosage Gita Plotts RISK INTERN.CNM Work Phone: [facility] Work Phone: 2003 pneumococcal conjuga te vaccine, 7 valent Gita Plotts RISK INTERN.CNM Work Phone: [facility] Work Phone: 2003 diphtheria, tetanus toxoids and acellular pertussis vaccine Gita Plotts RISK INTERN.CNM Work Phone: [facility] Work Phone: 2003 haemophilus influenz ae type b vaccine, HbOC conjugate Gita Plotts RISK INTERN.CNM Work Phone: [facility] Work Phone: 2003 pneumococcal conjuga te vaccine, 7 valent Gita Plotts RISK INTERN.CNM Work Phone: [facility] Work Phone: 2003 poliovirus vaccine, inactivated Gita Plotts RISK INTERN.CNM Work Phone: [facility] Work Phone: 2003 diphtheria, tetanus toxoids and acellular pertussis vaccine Gita Matthews RISK INTERN.CNM Work Phone: [facility] Work Phone: 2003 haemophilus influenz ae type b vaccine, HbOC conjugate Gita Matthews RISK INTERN.CNM Work Phone: [facility] Work Phone: 2003 pneumococcal conjuga te vaccine, 7 valent Gitaalvin Matthews RISK INTERN.CNM Work Phone: [facility] Work Phone: 2003 poliovirus vaccine, inactivated Gita Matthews RISK INTERN.CNM Work Phone: [facility] Work Phone: 2003 hepatitis B vaccine, pediatric or pediatric/adolescent dosage Gita Matthews RISK INTERN.CNM Work Phone: [facility] Work Phone: 2003 hepatitis B vaccine, pediatric or pediatric/adolescent dosage Gita Matthews RISK INTERN.CNM Work Phone: [facility] Work Phone: Payers Date Payer Category Payer Unknown [id number] 2022 Medicaid [id number] 2003 Unknown [id number] [id number] 2003 Unknown [id number] [id number] 2003 Unknown [id number] [id number]. [id number] 2003 Unknown [id number] [id number]. [id number] 2003 Medicaid 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 [employer] Start: 2003 Sex Assigned At Not on file M [place], [place] Exposure to SARS-CoV -2 (event) Unable to assess [place] Start: 07-11-2018 End: 07-12-2022 Tobacco use and exposure Smokeless tobacco non-user [facility] Start: 01-19-2022 Alcohol intake Not Asked [facility] Start: 07-11-2022 End: 05-22-2023 Alcohol intake Lifetime non-drinker (finding) [facility] Start: 07-11-2022 Education 11 [facility] Start: 05-31-2022 [facility] Work Phone: Start: 01-22-2021 End: 02-21-2021 Exposure to SARS-CoV-2 (event) Not sure [facility] Start: 2003 Sex Assigned At Female C [facility] Start: 12-12-2022 Education 13 [facility] Start: 12-12-2022 End: 12-16-2022 History of Social function [facility] Start: 12-12-2022 End: 12-16-2022 Tobacco use panel [facility] National Score (1-10 0), lower number is lower risk 75 [facility] Start: 10-02-2022 Gender identity Identifies as female gender (finding) [facility] Start: 10-02-2022 Sexual orientation Heterosexual (fin ding) [facility] Goals Date Patient Goal Desired Activity /State Personal health goal Clinical Notes 07-02-2022 to 06-30-2023 Quick Notes - Gita Matthews APRN.CNM - 05/22/2023 8:19 AM ESTPatient InstructionsTelephone Encounter - Gayatri Li RN - 05/08/2023 9:19 AM ESTPatient InstructionsPatient Instructions Note Date & Type Note Facility 06-30-2023 Note HNO ID: [id number] Author: JANIE WOODARD APRN.CN Service: ? Author Type: Bolt Sawyer Type: Progress Notes Filed: 06/30/2023 16:32 Note Text: NST SUMMARY PROVIDER ASSESSMENT AND INTERPRETATION Rhett Aceves is a 18 year old female, , who is at 36w3d with an TOM of 07/25/2023, by Ultrasound dating method. Indications for NST: Gestational HTN and Obesity Baseline: 155 Variability: Moderate Accelerations: Present 15 X 15 Decelerations: None Contractions: TOCO: None Interpretation: Reactive SIGNATURE: Janie Woodard APRN.[facility] 06-19-2023 Note HNO ID: [id number] Author: TAMARA OVIEDO MD Service: ? Author [...] I and Reactive SIGNATURE: Tamara Oviedo MD [facility] 06-06-2023 Note HNO ID: [id number] Author: Lexy Paredes MD Service: ? Author [...] Interpretation: Category II SIGNATURE: Lexy Paredes MD [facility] 05-22-2023 Miscellaneous Notes S: Rhett Aceves [...] LAZ Matthews APRN.CNM documented in this encounter [facility] 05-22-2023 Instructions Dusty Aquino Cma - 05/22/2023 8:08 AM EST SEQUENTIAL SCREENINGS The [facility] offers sequential screenings for women who [...] It will require an appointment with our biofuels production technician. This is not an ultrasound performed [...] the above symptoms, contact our office at [phone] and ask to speak with a nurse. After hours, you can call doctors registry at [phone] OR call [facility] at [phone] and ask to have the doctor train conductor paged. If you consider this an emergency, dial 9--4 or go to your nearest emergency department. NEED HELP? Are you dealing with a violent or abusive relationship? Are you a victim of rape or sexual assult? Call [facility] 24 hour Crisis Hotline: 169.749.8417 or 891-660-5794. MANUAL Your Guide to a Healthy manual is now on-line. Visit [email or web address] to download your free copy documented in this encounter [facility] 05-08-2023 Miscellaneous Notes Left message to call office. Please file pended lab order. Gayatri Li RN ----- Message from Gita Matthews APRN.CNM sent at 05/07/2023 5:14 PM EST ----- 1 hour GCT elevated. Please notify patient that she will need to complete a fasting 3 hour GTT. Order placed. documented in this encounter [facility] 05-05-2023 Miscellaneous Notes 3rd risk assessment form submitted 05/05/2023. Debbie Henry RN documented in this encounter [facility] 04-30-2023 Miscellaneous Notes RR- VB No. [...] Tamara Oviedo M.D. documented in this encounter [facility] 04-30-2023 Instructions Wendi Elliott Ma - 04/30/2023 3:33 PM EST SEQUENTIAL SCREENINGS The [facility] offers sequential screenings for women who [...] It will require an appointment with our biofuels production technician. This is not an ultrasound performed [...] the above symptoms, contact our office at [phone] and ask to speak with a nurse. After hours, you can call doctors registry at [phone] OR call [facility] at [phone] and ask to have the doctor train conductor paged. If you consider this an emergency, dial 9- or go to your nearest emergency department. NEED HELP? Are you dealing with a violent or abusive relationship? Are you a victim of rape or sexual assult? Call [facility] ([place]) 24 hour Crisis Hotline: 509.398.9267 or 795-825-8530. MANUAL Your Guide to a Healthy manual is now on-line. Visit [email or web address] to download your free copy documented in this encounter [facility] 04-02-2023 Miscellaneous Notes Rhett Aceves is [...] Gita Matthews APRN.CNM documented in this encounter [facility] 04-02-2023 Instructions Sara Shea MA - 04/02/2023 9:18 AM EDT SEQUENTIAL SCREENINGS The [facility] offers sequential screenings for women who [...] It will require an appointment with our biofuels production technician. This is not an ultrasound performed [...] the above symptoms, contact our office at [phone] and ask to speak with a nurse. After hours, you can call doctors registry at [phone] OR call [facility] at [phone] and ask to have the doctor train conductor paged. If you consider this an emergency, dial 8--5 or go to your nearest emergency department. NEED HELP? Are you dealing with a violent or abusive relationship? Are you a victim of rape or sexual assult? Call [facility] ([place]) 24 hour Crisis Hotline: 143.599.3755 or 899-614-0285. MANUAL Your Guide to a Healthy manual is now on-line. Visit [email or web address] to download your free copy documented in this encounter [facility] 03-07-2023 Miscellaneous Notes 2nd risk assessment form submitted 03/07/23 Michelle Batista RN documented in this encounter [facility] 01-17-2023 Note HNO ID: [id number] Author: Jenifer Chow, JIM Service: ? Author Type: Registered Nurse Type: [...] SURGICAL HISTORY Procedure Laterality Date APPENDECTOMY 11/03/2008 [facility] SUCTION incomplete AB Other significant [...] provider for review and evaluation for treatment. [facility] 01-17-2023 History of Presen t illness [...] evaluation for treatment. documented in this encounter [facility] 01-17-2023 Miscellaneous Notes Called patient and [...] Gita Matthews APRN.CNM documented in this encounter [facility] 01-15-2023 Miscellaneous Notes Patient had NT u/s today. Please file sequential screen orders. Nivia Keating RN documented in this encounter [facility] 01-08-2023 Miscellaneous Notes Patient declined centering. Dusty Aquino Cma LM for patient to call back to see if she is interested in getting scheduled for Centering. Sara Shea MA documented in this encounter [facility] 01-08-2023 Miscellaneous Notes S: Rhett Aceves is a 17 year old female who presents at 11.5 weeks gestation for a routine visit. Was supposed to have NT US today but needs to reschedule for 12 weeks gestation per biofuels production technician. Desires sequential screening. Denies headache, visual [...] US and labs RTO- 4 weeks LAZ Gita Matthews APRN.CNM documented in this encounter [facility] 01-08-2023 Instructions Dusty Aquino Cma - 01/08/2023 9:39 AM EDT SEQUENTIAL SCREENINGS The [facility] offers sequential screenings for women who [...] It will require an appointment with our biofuels production technician. This is not an ultrasound performed [...] the above symptoms, contact our office at [phone] and ask to speak with a nurse. After hours, you can call doctors registry at [phone] OR call [facility] at [phone] and ask to have the doctor train conductor paged. If you consider this an emergency, dial 9-1-5 or go to your nearest emergency department. NEED HELP? Are you dealing with a violent or abusive relationship? Are you a victim of rape or sexual assult? Call [facility] ([place]) 24 hour Crisis Hotline: 487.335.9688 or 434-142-8343. MANUAL Your Guide to a Healthy manual is now on-line. Visit [email or web address] to download your free copy documented in this encounter [facility] 01-07-2023 Miscellaneous Notes Received the following request from water quality technician :Patient's EDC changed at her POC ultrasound to 2-15-24 which will not make her 12 weeks at her NT screen tomorrow.Patient's BMI is over 40.She is concerned she won't be able to get a good ultrasound image. Please call patient to reschedule.I am leaving for the day documented in this encounter [facility] 12-20-2022 Miscellaneous Notes Patient viewed [employer] message. Debbie Salazar RN Left message for patient to call office. Also, sent [employer] message. Positive urine culture. Rx for Macrobid 100 mg PO BID x 7 days sent to pharmacy. Please notify patient. Gita Matthews APRN.CNM documented in this encounter [facility] 12-17-2022 Miscellaneous Notes Initial Risk Assessment Form submitted on December 17, 2022 Debbie Mtz RN documented in this encounter [facility] 12-16-2022 Note HNO ID: [id number] Author: Gita Matthews APRN.CNM Service: ? Author Type: Bolt Sawyer Type: Progress Notes Filed: 12/16/2022 10:12 AM Note Text: OB point of care ultrasound was performed. See imaging tab for details. Gita Matthews APRN.CNM [facility] 12-16-2022 Note HNO ID: [id number] Author: Gita Matthews APRN.CNM Service: ? Author Type: Bolt Sawyer Type: Progress Notes Filed: 12/16/2022 10:11 AM Note Text: INITIAL OB ASSESSMENT Plant Packer offered: Patient declines. Obstetric History T0 L0 [...] OB Dating Form. Cycles irregular August 2022 [facility] was unplanned but accepted Complaints: [...] use: No Multivitamin with Folic acid: Yes Congregational or heritage: No Would refuse blood transfusion [...] SURGICAL HISTORY Procedure Laterality Date APPENDECTOMY 11/03/2008 [facility] SUCTION incomplete AB Current Outpatient [...] range of gus (more content not included)... [facility] 12-16-2022 History of Presen t illness Narrative OB point of care ultrasound was performed. See imaging tab for details. Gita Matthews APRN.CNM documented in this encounter [facility] 12-12-2022 Note HNO ID: [id number] Author: Calista Wells RN Service: ? Author Type: ? Type: Progress Notes Filed: 12/12/2022 3:24 PM Note Text: # 1 - Date: 08/26/22, Sex: Unknown, Weight: None, GA: 8w4d, Delivery: SPONTANEOUS , Apgar1: None, Apgar5: None, Living: None, Comments: suction DANDC # 2 - Date: None, Sex: None, Weight: None, GA: None, Delivery: None, Apgar1: None, Apgar5: None, Living: None, Comments: None [facility] 12-12-2022 History of Presen t illness Narrative # 1 - Date: 08/26/22, Sex: Unknown, Weight: None, GA: 8w4d, Delivery: SPONTANEOUS , Apgar1: None, Apgar5: None, Living: None, Comments: suction D&C # 2 - Date: None, Sex: None, Weight: None, GA: None, Delivery: None, Apgar1: None, Apgar5: None, Living: None, Comments: None documented in this encounter [facility] 12-12-2022 Miscellaneous Notes DISTANCE HEALTH VISIT [...] testing.Calista Wells RN documented in this encounter [facility] 11-28-2022 Miscellaneous Notes No blood work needed at this time. Keep PNOB and NOB. An ultrasound will be completed at that time. Gita Matthews APRN.CNM Pt responded to [employer] message and stated that her LMP is [...] to contact the office to follow up. [employer] message also sent to pt. Martha Juares LPN 2nd message left for patient to return phone call Left message to call office. Patient is scheduled for an appointment 12/02/22 and notes mention cramping, wants to know how far along . Please verify if patient is and triage symptoms. Patient will need pnob. documented in this encounter [facility] 09-18-2022 Note HNO ID: [id number] Author: Janie Woodard APRN.CNM Service: ? Author Type: Bolt Sawyer Type: Progress Notes Filed: 09/18/2022 5:01 PM [...] consult is not indicated. Janie Woodard APRN.CNM [facility] 09-18-2022 History of Presen t illness [...] Janie Woodard APRN.CNM documented in this encounter [facility] 09-03-2022 Miscellaneous Notes Message again left [...] Nivia Keating RN documented in this encounter [facility] 08-26-2022 Note HNO ID: [id number] Author: Tamara Oviedo MD Service: ? Author Type: Physician Type: Progress Notes Filed: 08/26/2022 11:12 AM Note Text: Patient underwent suction DANDC for bleeding, incomplete ab on 08/26/22 after taking cytotec 08/25/22 and having heavy bleeding. D/kendall home same day. Pathology pending. Tamara Oviedo MD [facility] 08-26-2022 Note HNO ID: [id number] Author: Nivia Keating RN Service: ? Author Type: ? Type: Progress Notes Filed: 08/26/2022 8:38 AM Note Text: Patient had missed ab. She was seen in our office for 3 visits. Please bill all visits. Nivia Keating RN [facility] 08-26-2022 History of Presen t illness Narrative Patient had missed ab. She was seen in our office for 3 visits. Please bill all visits. Nivia Keating RN documented in this encounter [facility] 08-23-2022 Miscellaneous Notes Rhett Aceves is [...] Gita Matthews APRN.CNM documented in this encounter [facility] 08-09-2022 Miscellaneous Notes Mychart message again sent to pt re: Centering program. Martha Juares LPN 2nd message left for patient to return phone call LM for patient to call back. Please ask if she was able to read over [employer] information about centering and see if she would like to get scheduled. Sara Shea MA documented in this encounter [facility] 07-30-2022 Miscellaneous Notes Opened in error. Gita Matthews APRN.CNM documented in this encounter [facility] 07-26-2022 Miscellaneous Notes S: Rhett Aceves [...] Gita Matthews APRN.CNM documented in this encounter [facility] 07-26-2022 Instructions Lorraine Taylor Ma - 07/26/2022 8:42 AM EST SEQUENTIAL SCREENINGS The [facility] offers sequential screenings for women who [...] It will require an appointment with our biofuels production technician. This is not an ultrasound performed [...] the above symptoms, contact our office at [phone] and ask to speak with a nurse. After hours, you can call doctors registry at [phone] OR call [facility] at [phone] and ask to have the doctor train conductor paged. If you consider this an emergency, dial 9-1-1 or go to your nearest emergency department. NEED HELP? Are you dealing with a violent or abusive relationship? Are you a victim of rape or sexual assult? Call [facility] ([place]) 24 hour Crisis Hotline: 839.662.6472 or 353-073-3315. MANUAL Your Guide to a Healthy manual is now on-line. Visit [email or web address] to download your free copy documented in this encounter [facility] 07-18-2022 Miscellaneous Notes Message about Centering option sent to patient. Gita Matthews APRN.CNM documented in this encounter [facility] 07-16-2022 Miscellaneous Notes PRAF form completed. URBAN Rudd, RN OB Clinical Navigator documented in this encounter [facility] 07-12-2022 Note HNO ID: [id number] Author: Gita Matthews APRN.CNM Service: ? 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 See progress note. Gita Matthews APRN.CNM documented in this encounter [facility] documented as of this encounter (statuses as of 08/26/2022) [facility] History of Past illness Narrative* Problem Noted Date Resolved Date Obesity complicating , first trimester 07/12/2022 08/26/2022 8 weeks gestation of 07/12/2022 0 08/26/2022 Encounter for supervision of normal in teen primigravida, antepartum 07/11/2022 08/26/2022 Overview: 07/11/2022 Father of the baby involved. 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 Father the baby also attends school there.TKRN APPENDICITIS ACUTE 11/17/2008 08/26/2022 Contact dermatitis and other eczema, due to unspecified cause 07/22/2008 08/26/2022 Routine infant or child health check 07/07/2006 08/26/2022 Accidental poisoning by lead and its compounds and fumes(E866.0) 03/27/2005 08/26/2022 documented as of this encounter (statuses as of 09/04/2022) [facility] History of Past illness Narrative* Problem Noted Date Resolved Date Obesity complicating , first trimester 07/12/2022 08/26/2022 8 weeks gestation of 07/12/2022 0 08/26/2022 Encounter for supervision of normal in teen primigravida, antepartum 07/11/2022 08/26/2022 Overview: 07/11/2022 Father of the baby involved. 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 Father the baby also attends school there.TKRN APPENDICITIS ACUTE 11/17/2008 03/20/202 3 Contact dermatitis and other eczema, due to unspecified cause 07/22/2008 08/26/2022 Routine or child health check 07/07/2006 08/26/2022 Accidental poisoning by lead and its compounds and fumes(E866.0) 03/27/2005 08/26/2022 documented as of this encounter (statuses as of 12/16/2022) [facility] History of Past illness Narrative* Problem Noted Date Diagnosed Date Resolved Date 8 weeks gestation of 07/12/2022 08/26/2022 Encounter for supervision of normal in teen primigravida, antepartum 07/11/2022 023 Overview: 07/11/2022 Father of the baby involved. 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 Father the baby also attends school there.TKRN APPENDICITIS ACUTE 11/17/2008 3 Contact dermatitis and other eczema, due to unspecified cause 07/22/2008 08/26/2022 Routine or child health check 07/07/2006 08/26/2022 Accidental poisoning by lead and its compounds and fumes(E866.0) 03/27/2005 08/26/2022 documented as of this encounter (statuses as of 12/17/2022) [facility] History of Past illness Narrative* Problem Noted Date Diagnosed Date Resolved Date 8 weeks gestation of 07/12/2022 08/26/2022 Encounter for supervision of normal in teen primigravida, antepartum 07/11/2022 023 Overview: 07/11/2022 Father of the baby involved. 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 Father the baby also attends school there.TKRN APPENDICITIS ACUTE 11/17/2008 3 Contact dermatitis and other eczema, due to unspecified cause 07/22/2008 08/26/2022 Routine or child health check 07/07/2006 08/26/2022 Accidental poisoning by lead and its compounds and fumes(E866.0) 03/27/2005 08/26/2022 documented as of this encounter (statuses as of 12/21/2022) [facility] History of Past illness Narrative* Problem Noted Date Diagnosed Date Resolved Date 8 weeks gestation of 07/12/2022 08/26/2022 Encounter for supervision of normal in teen primigravida, antepartum 07/11/2022 023 Overview: 07/11/2022 Father of the baby involved. 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 Father the baby also attends school there.TKRN APPENDICITIS ACUTE 11/17/2008 3 Contact dermatitis and other eczema, due to unspecified cause 07/22/2008 08/26/2022 Routine or child health check 07/07/2006 08/26/2022 Accidental poisoning by lead and its compounds and fumes(E866.0) 03/27/2005 08/26/2022 documented as of this encounter (statuses as of 01/08/2023) [facility] History of Past illness Narrative* Problem Noted Date Diagnosed Date Resolved Date 8 weeks gestation of 07/12/2022 08/26/2022 Encounter for supervision of normal in teen primigravida, antepartum 07/11/2022 023 Overview: 07/11/2022 Father of the baby involved. 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 Father the baby also attends school there.TKRN APPENDICITIS ACUTE 11/17/2008 3 Contact dermatitis and other eczema, due to unspecified cause 07/22/2008 08/26/2022 Routine or child health check 07/07/2006 08/26/2022 Accidental poisoning by lead and its compounds and fumes(E866.0) 03/27/2005 08/26/2022 documented as of this encounter (statuses as of 01/16/2023) [facility] History of Past illness Narrative* Problem Noted Date Diagnosed Date Resolved Date 8 weeks gestation of 07/12/2022 08/26/2022 Encounter for supervision of normal in teen primigravida, antepartum 07/11/2022 023 Overview: 07/11/2022 Father of the baby involved. 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 Father the baby also attends school there.TKRN APPENDICITIS ACUTE 11/17/2008 3 Contact dermatitis and other eczema, due to unspecified cause 07/22/2008 08/26/2022 Routine infant or child health check 07/07/2006 08/26/2022 Accidental poisoning by lead and its compounds and fumes(E866.0) 03/27/2005 08/26/2022 documented as of this encounter (statuses as of 01/18/2023) [facility] History of Past illness Narrative* Problem Noted Date Diagnosed Date Resolved Date 8 weeks gestation of 07/12/2022 08/26/2022 Encounter for supervision of normal in teen primigravida, antepartum 07/11/2022 023 Overview: 07/11/2022 Father of the baby involved. 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 Father the baby also attends school there.TKRN APPENDICITIS ACUTE 11/17/2008 3 Contact dermatitis and other eczema, due to unspecified cause 07/22/2008 08/26/2022 Routine infant or child health check 07/07/2006 08/26/2022 Accidental poisoning by lead and its compounds and fumes(E866.0) 03/27/2005 08/26/2022 documented as of this encounter (statuses as of 03/07/2023) [facility] History of Past illness Narrative* Problem Noted Date Diagnosed Date Resolved Date 8 weeks gestation of 07/12/2022 08/26/2022 Encounter for supervision of normal in teen primigravida, antepartum 07/11/2022 023 Overview: 07/11/2022 Father of the baby involved. 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 Father the baby also attends school there.TKRN APPENDICITIS ACUTE 11/17/2008 3 Contact dermatitis and other eczema, due to unspecified cause 07/22/2008 08/26/2022 Routine infant or child health check 07/07/2006 08/26/2022 Accidental poisoning by lead and its compounds and fumes(E866.0) 03/27/2005 08/26/2022 documented as of this encounter (statuses as of 04/02/2023) [facility] History of Past illness Narrative* Problem Noted Date Diagnosed Date Resolved Date 8 weeks gestation of 07/12/2022 08/26/2022 Encounter for supervision of normal in teen primigravida, antepartum 07/11/2022 023 Overview: 07/11/2022 Father of the baby involved. 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 Father the baby also attends school there.TKRN APPENDICITIS ACUTE 11/17/2008 3 Contact dermatitis and other eczema, due to unspecified cause 07/22/2008 08/26/2022 Routine or child health check 07/07/2006 08/26/2022 Accidental poisoning by lead and its compounds and fumes(E866.0) 03/27/2005 08/26/2022 documented as of this encounter (statuses as of 04/30/2023) [facility] History of Past illness Narrative* Problem Noted Date Diagnosed Date Resolved Date 8 weeks gestation of 07/12/2022 08/26/2022 Encounter for supervision of normal in teen primigravida, antepartum 07/11/2022 023 Overview: 07/11/2022 Father of the baby involved. 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 Father the baby also attends school there.TKRN APPENDICITIS ACUTE 11/17/2008 3 Contact dermatitis and other eczema, due to unspecified cause 07/22/2008 08/26/2022 Routine or child health check 07/07/2006 08/26/2022 Accidental poisoning by lead and its compounds and fumes(E866.0) 03/27/2005 08/26/2022 documented as of this encounter (statuses as of 05/08/2023) [facility] History of Past illness Narrative* Problem Noted Date Diagnosed Date Resolved Date 8 weeks gestation of 07/12/2022 08/26/2022 Encounter for supervision of normal in teen primigravida, antepartum 07/11/2022 023 Overview: 07/11/2022 Father of the baby involved. 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 [email or web address] documented in [facility] encounterW[facility] Miscellaneous Notes* Quick Notes - Calista Wells RN - 07/11/2022 4:26 PM EST DISTANCE HEALTH VISIT This Team Access Model visit is a phone encounter. It required patient-provider interaction for themedical decision making as documented below. Rhett Aceves is a 17 year old female seen for PNOB. Father of the baby involved. 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 Father the baby also attends school there. Patient considering aneuploidy screening. Contact information for [facility] given to patient to check on insurance coverage. Patient declines genetic carrier screening testing.Calista Wells RN documented in [facility] Miscellaneous Notes* Telephone Encounter - Nivia [...] next week [facility] [place] [facility] Diagnosis Encounter for supervision of normal in teen primigravida, antepartum- Primary [facility] [place] [facility]* Diagnosis Encounter for supervision of normal in teen primigravida, antepartum- Primary 8 weeks gestation of state, incidental Obesity complicating , first trimester [facility] [place] [facility]* Diagnosis Encounter for supervision of normal in teen primigravida, antepartum- Primary [facility] [place] [facility]* Diagnosis Obesity complicating , first trimester- Primary 8 weeks gestation of state, incidental care in first trimester- Primary [facility] [place] [facility]* Diagnosis care in first trimester- Primary [facility] [place] [facility]* Diagnosis Encounter for supervision of normal in teen primigravida, antepartum documented [facility] [place] [facility]* Diagnosis Non-viable - Primary Other abnormal products of conception documented [facility] [place] [facility]* Diagnosis Missed - Primary Miscarriage Unspecified spontaneous without mention of complication [facility] [place] [facility]* Diagnosis Missed - Primary [facility] [place] [facility]* Diagnosis Current with history of spontaneous during prior - Primary Obesity during Patient request for diagnostic testing Other specified examination documented in this encounter [facility] note* Diagnosis with uncertain dates in first trimester- Primary documented in this encounter [facility] note* Diagnosis 11 weeks gestation of - Primary state, incidental Obesity during documented in this encounter [facility] note* Diagnosis Encounter for screening for nuchal translucency- Primary 12 weeks gestation of state, incidental [facility] [place] [facility]* Diagnosis Encounter for (NT) nuchal translucency scan- Primary Other specified screening Current with history of spontaneous during prior documented in this encounter [facility] note* Diagnosis Anemia complicating , second trimester- Primary documented in this encounter [facility] note* Diagnosis 23 weeks gestation of - Primary state, incidental Obesity affecting in second trimester, unspecified obesity type Anemia complicating , second trimester [facility] [place] [facility]* Diagnosis 27 weeks gestation of - Primary state, incidental Obesity affecting in second trimester, unspecified obesity type Anemia complicating , second trimester Supervision of other high risk pregnancies, third trimester documented in this encounter [facility] note* Diagnosis Abnormal glucose complicating - Primary Abnormal maternal glucose tolerance, complicating , childbirth, or the puerperium, unspecified as to episode of care documented in this encounter [facility] note* Diagnosis 30 weeks gestation of - Primary state, incidental Other obesity affecting in third trimester documented in this encounter [facility] for referral (narrative)* Diagnostic Procedure Only (Routine) - Authorized Specialty Diagnoses / Procedures Referred By [place]oma t Referred To Contact [facility] Diagnoses Encounter for supervision of normal in teen primigravida, antepartum Procedures OBSTETRIC ULTRASOUND WHI US PREG UTERUS AFTER 1ST TRIMEST 1 GESTATION Gita Matthews APRN.JACI [address] [place] [address] [facility] [address] [place] [address] Referral ID Status Reason Start Date Expiration Date Visits Requested Visits Authorized [id number] Authorized Auto-Generat ed Referral 07/12/2022 07/12/2023 1 1 * Diagnostic Procedure Only (Routine) - Pending Review Specialty Diagnoses / Procedures Referred By Contac t Referred To Contact [facility] Diagnoses Encounter for supervision of normal in teen primigravida, antepartum 8 weeks gestation of Procedures OBSTETRIC ULTRASOUND WHI US PREG UTERUS AFTER 1ST TRIMEST GESTATION Gita Matthews APRN.CNM [address] [place] [address] [address] Referral ID Status Reason Start Date Expiration Date Visits Requested Visits Authorized [id number] Pending Review Auto-Generat ed Referral 07/12/2022 07/12/2023 1 1 [facility] for referral (narrative)* Diagnostic Procedure Only (Routine) - Authorized Specialty Diagnoses / Procedures Referred By Contac t Referred To Contact [facility] Diagnoses Obesity complicating , first trimester 8 weeks gestation of Procedures NUCHAL TRANSLUCENCY WHI US NUCHAL TRANSLUCENCY GESTATION Gita Matthews APRN.CNM [address] [place] [address] [address] Referral ID Status Reason Start Date Expiration Date Visits Requested Visits Authorized [id number] Authorized Auto-Generat ed Referral 07/26/2022 07/26/2023 1 1 [facility] for referral (narrative)* Outpatient Procedure (Routine) - Pending Review Specialty Diagnoses / Procedures Referred By Contac t Referred To Contact [facility] Diagnoses Obesity affecting in second trimester, unspecified obesity type Supervision of other high risk pregnancies, third trimester Procedures NON-STRESS TEST NON-STRESS TEST Tamara Oviedo MD [address] [place] [address] [facility] [address] [place] [address] Referral ID Status Reason Start Date Expiration Date Visits Requested Visits Authorized [id number] Pending Review Auto-Generat ed Referral 3 04/29/2024 10 1 * Diagnostic Procedure Only (Routine) - Authorized Specialty Diagnoses / Procedures Referred By Contac t Referred To Contact [facility] Diagnoses Obesity affecting in second trimester, unspecified obesity type Supervision of other high risk pregnancies, third trimester Procedures OBSTETRIC ULTRASOUND WHI US PREG UTERUS AFTER 1ST TRIMEST GESTATION Tamara Oviedo MD [address] [place] [address] [facility] [address] [place] [address] Referral ID Status Reason Start Date Expiration Date Visits Requested Visits Authorized [id number] Authorized Auto-Generat ed Referral 3 04/29/2024 2 1 [facility]* Diagnostic Procedure Only (Routine) - Closed Specialty Diagnoses / Procedures Referred By Contac t Referred To Contact [facility] Diagnoses Encounter for supervision of normal in teen primigravida, antepartum Procedures OBSTETRIC ULTRASOUND WHI US PREG UTERUS AFTER 1ST TRIMEST GESTATION Gita Matthews APRN.[facility] [address] [place] [address] [facility] [address] [place] [address] Referral ID Status Reason Start Date Expiration Date V isits Requested Visits Authorized [id number] Closed Auto-Generate d Referral 07/12/2022 07/12/2023 1 1 [facility] Summary Purpose Family History No Family [...] through Care Everywhere. 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 Reason Onset Date Comments Care 07/26/2022 Reason Comments Appointment Reason Comments US Specialty Diagnoses / Procedures Referred By Contac t Referred To Contact [facility] Diagnoses Obesity complicating , first trimester 8 weeks gestation of Procedures NUCHAL TRANSLUCENCY WHI US NUCHAL TRANSLUCENCY 1ST GESTATION Gita Matthews APRN.CNM [address] [place] [address] [facility] [place] [address] Referral ID Status Reason Start Date Expiration Date V isits Requested Visits Authorized [id number] Closed Auto-Generate d Referral 07/26/2022 07/26/2023 1 1 Reason Comments Post Op Reason Comments Post Op Reason Comments PRAF- initial Reason Comments Results Reason Onset Date Comments Care 01/08/2023 Reason Comments upcoming omayra Reason Comments Orders Specialty Diagnoses / Procedures Referred By Contac t Referred To Contact [facility] Diagnoses Current with history of spontaneous during prior Procedures NUCHAL TRANSLUCENCY WHI US NUCHAL TRANSLUCENCY 1ST GESTATION Gita Matthews APRN.CNM [address] [place] [address] [facility] [address] [place] [address] Referral ID Status Reason Start Date Expiration Date V isits Requested Visits Authorized [id number] Closed Auto-Generate d Referral 12/16/2022 12/16/2023 1 [...] or prosecute any alcohol or drug abuse patient.[facility] the event this information is protected by the Federal Confidentiality of Alcohol and Drug Abuse Patient Records regulations: The Federal rules restrict any use of the information to criminally investigate or prosecute any alcohol or drug abuse patient.[facility] Hospital[facility] the event this information is protected by the Federal Confidentiality of Alcohol and Drug Abuse Patient Records regulations: The Federal rules restrict any use of the information to criminally investigate or prosecute any alcohol or drug abuse patient.[facility] HospitalIn the event this information is protected by the Federal Confidentiality of Alcohol and Drug Abuse Patient Records regulations: The Federal rules restrict any use of the information to criminally investigate or prosecute any alcohol or drug abuse patient.[facility] HospitalIn the event this information is protected by the Federal Confidentiality of Alcohol and Drug Abuse Patient Records regulations: The Federal rules restrict any use of the information to criminally investigate or prosecute any alcohol or drug abuse patient.[facility] HospitalIn the event this information is protected by the Federal Confidentiality of Alcohol and Drug Abuse Patient Records regulations: The Federal rules restrict any use of the information to criminally investigate or prosecute any alcohol or drug abuse patient.[facility] the event this information is protected by the Federal Confidentiality of Alcohol and Drug Abuse Patient Records regulations: The Federal rules restrict any use of the information to criminally investigate or prosecute any alcohol or drug abuse patient.[facility] HospitalIn the event this information is protected by the Federal Confidentiality of Alcohol and Drug Abuse Patient Records regulations: The Federal rules restrict any use of the information to criminally investigate or prosecute any alcohol or drug abuse patient.[facility] HospitalIn the event this information is protected by the Federal Confidentiality of Alcohol and Drug Abuse Patient Records regulations: The Federal rules restrict any use of the information to criminally investigate or prosecute any alcohol or drug abuse patient.[facility] HospitalIn the event this information is protected by the Federal Confidentiality of Alcohol and Drug Abuse Patient Records regulations: The Federal rules restrict any use of the information to criminally investigate or prosecute any alcohol or drug abuse patient.[facility] the event this information is protected by the Federal Confidentiality of Alcohol and Drug Abuse Patient Records regulations: The Federal rules restrict any use of the information to criminally investigate or prosecute any alcohol or drug abuse patient.[facility] HospitalIn the event this information is protected by the Federal Confidentiality of Alcohol and Drug Abuse Patient Records regulations: The Federal rules restrict any use of the information to criminally investigate or prosecute any alcohol or drug abuse patient.[facility] HospitalIn the event this information is protected by the Federal Confidentiality of Alcohol and Drug Abuse Patient Records regulations: The Federal rules restrict any use of the information to criminally investigate or prosecute any alcohol or drug abuse patient.[facility] HospitalIn the event this information is protected by the Federal Confidentiality of Alcohol and Drug Abuse Patient Records regulations: The Federal rules restrict any use of the information to criminally investigate or prosecute any alcohol or drug abuse patient.[facility] HospitalIn the event this information is protected by the Federal Confidentiality of Alcohol and Drug Abuse Patient Records regulations: The Federal rules restrict any use of the information to criminally investigate or prosecute any alcohol or drug abuse patient.[facility] HospitalIn the event this information is protected by the Federal Confidentiality of Alcohol and Drug Abuse Patient Records regulations: The Federal rules restrict any use of the information to criminally investigate or prosecute any alcohol or drug abuse patient.[facility] HospitalIn the event this information is protected by the Federal Confidentiality of Alcohol and Drug Abuse Patient Records regulations: The Federal rules restrict any use of the information to criminally investigate or prosecute any alcohol or drug abuse patient.[facility] HospitalIn the event this information is protected by the Federal Confidentiality of Alcohol and Drug Abuse Patient Records regulations: The Federal rules restrict any use of the information to criminally investigate or prosecute any alcohol or drug abuse patient.[facility] HospitalIn the event this information is protected by the Federal Confidentiality of Alcohol and Drug Abuse Patient Records regulations: The Federal rules restrict any use of the information to criminally investigate or prosecute any alcohol or drug abuse patient.[facility] HospitalIn the event this information is protected by the Federal Confidentiality of Alcohol and Drug Abuse Patient Records regulations: The Federal rules restrict any use of the information to criminally investigate or prosecute any alcohol or drug abuse patient.[facility] HospitalIn the event this information is protected by the Federal Confidentiality of Alcohol and Drug Abuse Patient Records regulations: The Federal rules restrict any use of the information to criminally investigate or prosecute any alcohol or drug abuse patient.[facility] HospitalIn the event this information is protected by the Federal Confidentiality of Alcohol and Drug Abuse Patient Records regulations: The Federal rules restrict any use of the information to criminally investigate or prosecute any alcohol or drug abuse patient.[facility] HospitalIn the event this information is protected by the Federal Confidentiality of Alcohol and Drug Abuse Patient Records regulations: The Federal rules restrict any use of the information to criminally investigate or prosecute any alcohol or drug abuse patient.[facility] HospitalIn the event this information is protected by the Federal Confidentiality of Alcohol and Drug Abuse Patient Records regulations: The Federal rules restrict any use of the information to criminally investigate or prosecute any alcohol or drug abuse patient.[facility] HospitalIn the event this information is protected by the Federal Confidentiality of Alcohol and Drug Abuse Patient Records regulations: The Federal rules restrict any use of the information to criminally investigate or prosecute any alcohol or drug abuse patient.[facility] HospitalIn the event this information is protected by the Federal Confidentiality of Alcohol and Drug Abuse Patient Records regulations: The Federal rules restrict any use of the information to criminally investigate or prosecute any alcohol or drug abuse patient.[facility] HospitalIn the event this information is protected by the Federal Confidentiality of Alcohol and Drug Abuse Patient Records regulations: The Federal rules restrict any use of the information to criminally investigate or prosecute any alcohol or drug abuse patient.[facility] HospitalIn the event this information is protected by the Federal Confidentiality of Alcohol and Drug Abuse Patient Records regulations: The Federal rules restrict any use of the information to criminally investigate or prosecute any alcohol or drug abuse patient.[facility] HospitalIn the event this information is protected by the Federal Confidentiality of Alcohol and Drug Abuse Patient Records regulations: The Federal rules restrict any use of the information to criminally investigate or prosecute any alcohol or drug abuse patient.[facility] HospitalIn the event this information is protected by the Federal Confidentiality of Alcohol and Drug Abuse Patient Records regulations: The Federal rules restrict any use of the information to criminally investigate or prosecute any alcohol or drug abuse patient.[facility] HospitalIn the event this information is protected by the Federal Confidentiality of Alcohol and Drug Abuse Patient Records regulations: The Federal rules restrict any use of the information to criminally investigate or prosecute any alcohol or drug abuse patient.[facility] ClinicIn the event this information is protected by the Federal Confidentiality of Alcohol and Drug Abuse Patient Records regulations: The Federal rules restrict any use of the information to criminally investigate or prosecute any alcohol or drug abuse patient.[facility] HospitalIn the event this information is protected by the Federal Confidentiality of Alcohol and Drug Abuse Patient Records regulations: The Federal rules restrict any use of the information to criminally investigate or prosecute any alcohol or drug abuse patient.[facility] HospitalIn the event this information is protected by the Federal Confidentiality of Alcohol and Drug Abuse Patient Records regulations: The Federal rules restrict any use of the information to criminally investigate or prosecute any alcohol or drug abuse patient.[facility] HospitalIn the event this information is protected by the Federal Confidentiality of Alcohol and Drug Abuse Patient Records regulations: The Federal rules restrict any use of the information to criminally investigate or prosecute any alcohol or drug abuse patient.[facility] HospitalIn the event this information is protected by the Federal Confidentiality of Alcohol and Drug Abuse Patient Records regulations: The Federal rules restrict any use of the information to criminally investigate or prosecute any alcohol or drug abuse patient.[facility] HospitalIn the event this information is protected by the Federal Confidentiality of Alcohol and Drug Abuse Patient Records regulations: The Federal rules restrict any use of the information to criminally investigate or prosecute any alcohol or drug abuse patient.[facility] HospitalIn the event this information is protected by the Federal Confidentiality of Alcohol and Drug Abuse Patient Records regulations: The Federal rules restrict any use of the information to criminally investigate or prosecute any alcohol or drug abuse patient.[facility] Care Teams (unrecognized sec tion and content) Motion Picture Projectionist Relationship Specialty Start Date End Date Edison Trejo PCP - General Pediatrics 08/16/12 Motion Picture Projectionist Relationship Specialty Start Date End Date Edison Trejo PCP - General Pediatrics 08/16/12 Motion Picture Projectionist Relationship Specialty Start Date End Date Edison Trejo Eva PCP - General Pediatrics 08/16/12 Motion Picture Projectionist Relationship Specialty Start Date End Date Edison Trejo Eva PCP - General Pediatrics 08/16/12 Motion Picture Projectionist Relationship Specialty Start Date End Date Edison Trejo Eva PCP - General Pediatrics 08/16/12 Motion Picture Projectionist Relationship Specialty Start Date End Date Edison Trejo Eva PCP - General Pediatrics 08/16/12 Motion Picture Projectionist Relationship Specialty Start Date End Date Edison Trejo Eva PCP - General Pediatrics 08/16/12 Motion Picture Projectionist Relationship Specialty Start Date End Date TrejoShreeazael Velasquez PCP - General Pediatrics 08/16/12 Motion Picture Projectionist Relationship Specialty Start Date End Date Edison Trejo Eva PCP - General Pediatrics 08/16/12 Motion Picture Projectionist Relationship Specialty Start Date End Date Edison Trejo Eva PCP - General Pediatrics 08/16/12 Motion Picture Projectionist Relationship Specialty Start Date End Date Abel Gupta [facility] [address], [place] [id number] PCP - General 07/16/04 08/15/12 Edison Trejo [facility] [address] [place] [address] PCP - General Pediatrics 08/16/12 Motion Picture Projectionist Relationship Specialty Start Date End Date Martin Edison Ann PCP - General Pediatrics 08/16/12 Motion Picture Projectionist Relationship Specialty Start Date End Date Martin Edison Ann PCP - General Pediatrics 08/16/12 Motion Picture Projectionist Relationship Specialty Start Date End Date Edison Trejo PCP - General Pediatrics 08/16/12 Motion Picture Projectionist Relationship Specialty Start Date End Date Edison Trejo PCP - General Pediatrics 08/16/12 Motion Picture Projectionist Relationship Specialty Start Date End Date Edison Trejo PCP - General Pediatrics 08/16/12 Motion Picture Projectionist Relationship Specialty Start Date End Date Edison Trejo PCP - General Pediatrics 08/16/12 Motion Picture Projectionist Relationship Specialty Start Date End Date Edison Trejo PCP - General Pediatrics 08/16/12 Motion Picture Projectionist Relationship Specialty Start Date End Date Edison Trejo PCP - General Pediatrics 08/16/12 Motion Picture Projectionist Relationship Specialty Start Date End Date Edison Trejo PCP - General Pediatrics 08/16/12 Motion Picture Projectionist Relationship Specialty Start Date End Date Edison Trejo PCP - General Pediatrics 08/16/12 Motion Picture Projectionist Relationship Specialty Start Date End Date Edison Trejo MD (Fax) PCP - General Pediatrics 08/16/12 Motion Picture Projectionist Relationship Specialty Start Date End Date Edison Trejo MD PCP - General Pediatrics 08/16/12 Motion Picture Projectionist Relationship Specialty Start Date End Date Edison Trejo MD PCP - General Pediatrics 08/16/12 Motion Picture Projectionist Relationship Specialty Start Date End Date Edison Trejo MD PCP - General Pediatrics 08/16/12 Motion Picture Projectionist Relationship Specialty Start Date End Date Edison [...] BE BASED ON THE PRIMARY CLINICAL RECORDS. [facility] [employer] [facility]. provides no warranty or guarantee of the accuracy or completeness of information in this document.
[2023-07-07 13:06] VITALS: BP 145/83; PULSE 84; RESP 16; TEMP 35.9; O2SAT 100; BMI 44.7
[2023-07-07] MEDS: 0.9% NaCl Peripheral Flush Adult/Peds IV (13:20)
[2023-07-07] MEDS: 0.9% NaCl IVPB Med Flush (250 mL) 15 ML IV (13:20)
[2023-07-07] MEDS: Iron Sucrose Complex 200 MG in 0.9% Normal Saline (100mL Bag) 100 ML 220 MG IV (13:20)
[2023-07-07 14:25] VITALS: BP 135/73; PULSE 98
== END 2023-07-07 12:33 | disposition home or self-care (01) ==
LOC: MEDOUTP 12:33
PROVIDERS: PCP Pediatrics; Referring Provider Obstetrics & Gynecology; Visit Provider Obstetrics & Gynecology
DX: O99.013 Anemia complicating pregnancy, third trimester (principal); K90.9 Intestinal malabsorption, unspecified; Z3A.00 Weeks of gestation of pregnancy not specified; O99.619 Diseases of the digestive system complicating pregnancy, unspecified trimester
CPT/HCPCS: 96365; A4216; J1756; J7050

== ENCOUNTER 2023-07-09 12:19 | Outpatient (CLI) | payer MEDICAID, SELFPAY ==
[2023-07-09] MEDS: 0.9% NaCl IVPB Med Flush (250 mL) 15 ML IV (13:29)
[2023-07-09] MEDS: Iron Sucrose Complex 200 MG in 0.9% Normal Saline (100mL Bag) 100 ML 220 MG IV (13:30)
[2023-07-09] MEDS: 0.9% NaCl Peripheral Flush Adult/Peds IV (13:30)
[2023-07-09 14:17] VITALS: BMI 44.9
[2023-07-09 14:40] VITALS: BP 139/85; PULSE 96; RESP 16; TEMP 36.3; O2SAT 98
== END 2023-07-09 12:20 | disposition home or self-care (01) ==
LOC: MEDOUTP 12:19
PROVIDERS: PCP Pediatrics; Referring Provider Obstetrics & Gynecology; Visit Provider Obstetrics & Gynecology
DX: O99.013 Anemia complicating pregnancy, third trimester (principal); K90.9 Intestinal malabsorption, unspecified; O99.613 Diseases of the digestive system complicating pregnancy, third trimester; Z3A.00 Weeks of gestation of pregnancy not specified
CPT/HCPCS: 96365; A4216; J1756; J7050

== ENCOUNTER 2023-07-09 14:50 | Inpatient (IN) | payer MEDICAID, SELFPAY ==
[2023-07-09] VITALS (14 sets, daily range): BP systolic 133–147; BP diastolic 89–96; PULSE 93–143; TEMP 36.8–37.3; O2SAT 80–99; BMI 45.4
[2023-07-09] MEDS: Lactated Ringers 1,000 ML 50 ML IV (15:40)
[2023-07-09] MEDS: CHLORHEXIDINE GLUC 2% CLOTH 1 EACH TOWELETTE TOPICAL (15:40)
[2023-07-09] MEDS: 0.9% Saline Lock 10 ML Syringe IV ×2 (15:41→23:43)
[2023-07-09 16:04] LABS: Absolute Lymphocyte Count 2.28 X10^3/uL (0.83-4.51); Absolute Neutrophil Count 10.4 X10^3/uL (2.0-7.7); Basophil# 0.05 X10^3/uL; Basophil% 0.4 % (0-1); Eosinophil# 0.08 X10^3/uL; Eosinophils% 0.6 % (0-5); Hematocrit 27.5 % (37-47); Hemoglobin 8.4 g/dL (12.0-15.0); Lymphocyte # 2.28 X10^3/ul (0.83-4.51); Lymphocyte % 16.7 % (19-41); Mean Corp Hgb Conc 30.5 g/dL (32-36); Mean Corpuscular Hgb 24.9 pg (27.0-32.0); Mean Corpuscular Volume 81.4 fL (81-99); Mean Platelet Vol. 10.2 fl (6.2-12.0); Monocyte# 0.67 X10^3/uL; Monocyte% 4.9 % (0-10); NRBC Flagged by Analyzer 0.6 % (0-5); Neutrophil # 10.37 X10^3/uL (2.7-7.7); Neutrophil % 75.9 % (47-70); Platelet Count 389 K/mm3 (150-450); RBC Distribution Width CV 18.5 % (11.6-14.6); RBC Distribution Width SD 47.2 fl (35.1-43.9); Red Blood Count 3.38 M/mm3 (4.2-5.4); White Blood Count 13.7 K/mm3 (4.4-11.0)
[2023-07-09] MEDS: miSOPROStol 25 MCG TABLET PO ×2 (16:54→21:05)
[2023-07-09 17:01] LABS: AST(SGOT) 12 U/L (15-37); Alanine Aminotransfer ALT/SGPT 14 U/L (13-56); Creatinine, Serum 0.63 mg/dL (0.55-1.02); EST Glomerular Filtration Rate 129 mL/min (>60); Est Glom Filt Rate - Afr Amer 156 mL/min (>60); Estimated Creatinine Clearance 150.17 ml/min
[2023-07-09 18:06] LABS: Syphilis Antibodies Non-reactive
[2023-07-09] MEDS: 0.9% Normal Saline Single 100 ML IV.SOLN. INTRA-UTER (20:25)
--- NOTE | 2023-07-09 20:34 | PCM.HP.OB ---
HPI - General General Date of Admission: 07/09/23 HPI Narrative RHETT GARCÍA, is a 18 F at 37.5 weeks gestation who presents for a scheduled induction of labor for gestational hypertension. complicated by obesity, anxiety, and anemia. She has been receiving IV iron transfusions. Maternal Data Information TOM Calculator Estimated Delivery Date Method Current WG Current Estimate 07/25/23 Manual 37w 5d PFSH PFSH Medical History (Updated 07/09/23 @ 20:39 by Gita Castillo CNM) Anxiety Asthma Complete Depression Gestational HTN Home Medications vit no.95-ferrous fumarate 28 mg-folic acid 800 mcg tablet () 1 tab PO DAILY 06/06/23 [History Last Taken 07/08/23 20:00 1 TAB] cetirizine 10 mg tablet (24Hour Allergy) 10 mg PO DAILY PRN allergy symptoms 07/07/23 [History Last Taken Unknown] Allergy/AdvReac Type Severity Reaction Status Date / Time Penicillins Allergy PT UNSURE Verified 07/09/23 15:39 OF REACTION prednisone Allergy Nausea Verified 07/09/23 15:39 Surgical History (Updated 08/26/22 @ 04:45 by Tori Robles) History of appendectomy Hx of tonsillectomy Social History Smoking Status: Never smoker History Elective abortions Hx Para 0 Spontaneous abortions Hx # Term Pregnancies Ectopic pregnancies Hx # Pregnancies Multiple births # of living children ROS Eyes Eyes: Denies blurry vision, change in vision or spots in vision ENT HEENT: Denies dizziness or headache(s) Cardiovascular Cardiovascular: Denies abdominal pain, chest pain or dyspnea Respiratory/Chest Respiratory/Chest: Denies cough, dyspnea, shortness of breath at rest or shortness of breath with exertion Gastrointestinal Gastrointestinal: Denies abdominal pain, diarrhea or vomiting Genitourinary Genitourinary: Denies change in urinary stream, difficulty urinating or dysuria Musculoskeletal Musculoskeletal: Reports none Integumentary Integumentary: Denies rash Neurologic Neurologic: Denies dizziness, headache(s), memory loss or weakness Psychiatric Psychiatric: Reports none Vital Signs Vital Signs Vital Signs: 07/09/23 15:24 07/09/23 15:24 07/09/23 15:28 Temperature Temperature Source Pulse Rate 125 H Blood Pressure 133/93 H 135/90 H BP Systolic 133 135 BP Diastolic 93 90 Pulse Ox 07/09/23 15:28 07/09/23 15:30 07/09/23 15:30 Temperature Temperature Source Pulse Rate 121 H 111 H Blood Pressure BP Systolic BP Diastolic Pulse Ox 98 07/09/23 15:35 07/09/23 15:35 07/09/23 16:54 Temperature Temperature Source Pulse Rate 110 H Blood Pressure 140/91 H BP Systolic 140 BP Diastolic 91 Pulse Ox 98 07/09/23 16:54 07/09/23 18:06 07/09/23 18:06 Temperature Temperature Source Pulse Rate 94 96 Blood Pressure 140/95 H BP Systolic 140 BP Diastolic 95 Pulse Ox 07/09/23 18:06 07/09/23 18:06 07/09/23 19:19 Temperature 99.0 F Temperature Source Temporal Pulse Rate Blood Pressure 141/89 H BP Systolic 141 BP Diastolic 89 Pulse Ox 07/09/23 19:19 07/09/23 19:19 07/09/23 19:20 Temperature 99.0 F Temperature Source Pulse Rate 99 Blood Pressure BP Systolic BP Diastolic Pulse Ox 96 07/09/23 20:18 07/09/23 20:18 07/09/23 20:18 Temperature Temperature Source Pulse Rate 99 Blood Pressure 147/93 H BP Systolic 147 BP Diastolic 93 Pulse Ox 99 07/09/23 20:18 07/09/23 20:19 07/09/23 20:19 Temperature Temperature Source Temporal Pulse Rate 143 H Blood Pressure BP Systolic BP Diastolic Pulse Ox 80 07/09/23 20:18 Temperature 99.2 F H Temperature Source Pulse Rate Blood Pressure BP Systolic BP Diastolic Pulse Ox Weight Weight: 217 lb 9.54 oz Body Mass Index (BMI) 45.4 Physical Exam Const alert, oriented x3 and no apparent distress General Appearance: cooperative Orientation / Consciousness: awake Exam Limitations: no limitations HEENT normocephalic Head and Scalp: normal to inspection Eyes General Eye: normal appearance of both eyes Neck full ROM and no lymphadenopathy Lymph Lymphatic: no lymphadenopathy noted Chest inspection of chest normal Resp normal respiratory effort, normal air movement and clear to auscultation bilaterally Effort and Inspection: able to speak in complete sentences and symmetric chest movement Cardio regular rate and regular rhythm GI normal to inspection, nondistended, normoactive bowel sounds Manual OB Exam: presentation cephalic Back/Spine normal ROM Extremity full ROM and no calf tenderness Skin no rashes or lesions noted General Skin Exam: no breakdown Neuro oriented x3 and CN's II-XII intact bilaterally Psych mental status grossly normal and thought process normal Labs Labs Labs: Blood Type O POSITIVE Antibody Screen NEGATIVE Hct 27.5 % (37-47) L Hgb 8.4 g/dL (12.0-15.0) L Obstetrics Ultrasound Syphilis Total Ab Non-reactive Miscellaneous Test GBS negative Assessment & Plan (1) 37 weeks gestation of : (2) Gestational HTN: (3) Asthma: (4) Anxiety: (5) heart deceleration: (6) Obesity affecting : (7) Anemia affecting : (8) Encounter for induction of labor: PLAN: Plan Admit to labor and delivery Routine labs- add PIH No severe pressures today- BP's running 140's/80-90's Denies any headache, vision changes , SOB or CP CE- 1/50/-2 Spencer bulb placed without difficulty and balloon filled with 30 cc N/S Cytotec 25 mcg PO every 4 hours with a maximum of 6 doses Received IV iron transfusion today- current hgb. is 8.4 Dr. Hawk notified of admission and is collaborating physician
[2023-07-10] VITALS (70 sets, daily range): BP systolic 125–173; BP diastolic 66–109; PULSE 94–158; RESP 17; TEMP 36.4–38.4; O2SAT 80–100
[2023-07-10] MEDS: Oxytocin 15 Units/NS 250ml 15 UNITS/250 ML IV.SOLN 2 UNITS IV (01:33)
[2023-07-10] MEDS: LACTATED RINGERS 500 ML 999 ML IV ×2 (03:47→13:28)
[2023-07-10] MEDS: CHLORHEXIDINE GLUC 2% CLOTH 1 EACH TOWELETTE TOPICAL (06:01)
--- NOTE | 2023-07-10 07:10 | PN.OBGYN_ITS ---
Subjective Subjective Patient seen at bedside. Reports minimal pain with contractions. No epidural. Objective Data Objective Data Vital Signs: Vital Signs Temp Pulse BP Pulse Ox 98.7 F 114 H 145/98 H 99 07/10/23 06:22 07/10/23 06:22 07/10/23 06:22 07/10/23 01:13 Weight: 217 lb 9.54 oz Body Mass Index (BMI) 45.4 Intake & Output: Intake and Output for Last 24 Hours 07/08/23 07/09/23 07/10/23 23:59 23:59 23:59 Intake Total 1.33 / 1.33 Balance 1.33 / 1.33 Lab / Micro Data 07/09/23 15:50 07/09/23 15:50 Labs: Laboratory Results - last 24 hr 07/09/23 15:50: WBC 13.7 H, RBC 3.38 L, Hgb 8.4 L, Hct 27.5 L, MCV 81.4, MCH 24.9 L, MCHC 30.5 L, RDW Std Deviation 47.2 H, RDW Coeff of Valerie 18.5 H, Plt Count 389, MPV 10.2, Immature Gran % (Auto) 1.500 H, Neut % (Auto) 75.9 H, Lymph % (Auto) 16.7 L, Weakley % (Auto) 4.9, Eos % (Auto) 0.6, Baso % (Auto) 0.4, Absolute Neuts (auto) 10.4 H, Absolute Lymphs (auto) 2.28, Nucleated RBC % 0.6, Creatinine 0.63, Estim Creat Clear Calc 150.17, Est GFR (MDRD) Af Amer 156, Est GFR (MDRD) Non-Af 129, Uric Acid 6.0, AST 12 L, ALT 14, Syphilis Total Ab Non- reactive, Blood Type O POSITIVE, Antibody Screen NEGATIVE Assessment & Plan (1) Encounter for induction of labor: (2) Anemia affecting : (3) Obesity affecting : (4) 37 weeks gestation of : (5) Gestational HTN: (6) Asthma: (7) Anxiety: PLAN: Plan No severe range blood pressures BP's ranging around 133-150/73-98 Denies headaches, vision changes, SOB or CP Cat. 2 tracing at times with tachysystole- overall category 1 tracing Pitocin at 4 mu/min CE 4/60/-2 AROM for clear fluid IUPC and FSE placed due to difficulty tracing Epidural when indicated Anticipate
[2023-07-10] MEDS: Ondansetron 4 MG/2 ML Vial IV (07:13)
[2023-07-10] MEDS: 0.9% Saline Lock 10 ML Syringe IV ×3 (07:14→13:10)
[2023-07-10] MEDS: Lactated Ringers 1,000 ML 50 ML IV (12:03)
[2023-07-10] MEDS: Labetalol (Prefilled) 20 MG/4 ML IV (12:46)
[2023-07-10] MEDS: hydrALAZINE 20 MG/ML Vial 10 MG IV (13:09)
[2023-07-10] MEDS: hydrALAZINE 10 MG Tablet PO (14:47)
[2023-07-10 15:36] LABS: Hematocrit 30.3 % (37-47); Hemoglobin 9.2 g/dL (12.0-15.0); Mean Corp Hgb Conc 30.4 g/dL (32-36); Mean Corpuscular Hgb 24.9 pg (27.0-32.0); Mean Corpuscular Volume 81.9 fL (81-99); Mean Platelet Vol. 10.2 fl (6.2-12.0); POSITIVE COUNT YES; Platelet Count 400 K/mm3 (150-450); RBC Distribution Width CV 19.3 % (11.6-14.6); RBC Distribution Width SD 47.5 fl (35.1-43.9)
--- NOTE | 2023-07-10 15:41 | PLAC_PTH ---
PATIENT: RHETT GARCÍA LOC: WP U#:[id number] AGE/SX: 18/F ROOM: WP016 RE07/09/[address]: Dr. Brooke Vivar DO : 2005 BED: 1 DIS: 07/12/2023 SPEC #: [id number] RECD: 07/10/23 19:02 STATUS: HERBERTH CALEB #: [id number] CHRISTINA: 07/10/23 15:[address]: Brooke Vivar DEPT: SURGICAL PATHOLOGY RECD BY: Yasmin Nieto ENTERED: 07/11/23 14:27 SP TYPE: PLACENTA OTHR DR: Dr. Soni Salazar MD Tissues: Placenta, NOS Procedures: Surgery Specimen Level V HEADER OPERATION: Vaginal delivery PRE-OP DIAGNOSIS: Maternal and fevers TISSUE SUBMITTED: Placenta MICROSCOPIC DIAGNOSIS Hamilton placenta (479 gm): Umbilical cord - trivascular with acute funisitis. Placental membranes - acute deciduitis. Placental disc - intervillous congestion, mildly increased intraparenchymal microcalcifications and acute vasculitis of superficial placental vessels. AM:nicole 07/15/2023 MICROSCOPIC DESCRIPTION Slides are reviewed. GROSS DESCRIPTION SPECIMEN: PLACENTA / CLINICAL INFORMATION: A. Weight: 2.98 kg B. Gestational Age: 37 weeks C. Sex: Female PLACENTAL WEIGHT (POST FIXATION): 479 gm PLACENTAL DIMENSIONS: 20.0 x 19.0 x 3.5 cm PLACENTAL SHAPE: Usual ovoid PLACENTAL WEIGHT FOR GESTATIONAL AGE: Within 10-99th percentile. MEMBRANES - Present A. Insertion: Marginal B. Site of rupture from edge: 9.0 cm from edge of placental disc C. Color of membrane: Lundy-holman D. Abnormalities: None UMBILICAL CORD - Present A. Color: Lundy-holman B. Insertion: Paracentral C. Length: 38.0 cm D. Diameter: 1.2 cm E. Number of vessels: Three F. Abnormalities: None PLACENTAL DISC - Present A. Color of surface: Lundy-holman B. surface abnormalities: None C. Maternal cotyledons: Intact with minimal tears. Maternal surface shows increased speckled calcification. D. Attached retro placental clot: No clot E. Cut surface: Dark red and spongy F. Lesions: Sections reveal a lundy, indurated area in the peripheral portion of the placenta measuring 0.9 cm in greatest dimension. G. Separate clot: A fragment of blood clot is also noted weighing 15 gm and measuring 11.0 x 4.0 x 1.0?cm. SECTIONS SUBMITTED: 1. Membrane roll 2. Cord, maternal end 3. Cord, end 4. Placental disc, and maternal surfaces 5. Placental disc, and maternal surfaces 6. Placental disc, and maternal surfaces, lesion TREY:nicole 07/14/2023 TC:2 CPT: 03882
[2023-07-10 15:49] LABS: AST(SGOT) 16 U/L (15-37); Alanine Aminotransfer ALT/SGPT 16 U/L (13-56); Creatinine, Serum 0.84 mg/dL (0.55-1.02); EST Glomerular Filtration Rate 91 mL/min (>60); Est Glom Filt Rate - Afr Amer 111 mL/min (>60); Estimated Creatinine Clearance 112.63 ml/min; Uric Acid 6.6 mg/dL (2.6-6.0)
[2023-07-10 15:56] LABS: International Normalized Ratio 1.1; Prothrombin Time (Protime)PT. 14.1 SECONDS (11.7-14.9)
[2023-07-10 15:57] LABS: Partial Thromboplast Time 28.8 Seconds (24.1-36.2)
[2023-07-10] MEDS: Oxytocin 15 Units/NS 250ml 15 UNITS/250 ML IV.SOLN 83 UNITS IV (16:00)
[2023-07-10 16:01] LABS: LDH 230 U/L (84-246)
[2023-07-10] MEDS: Lidocaine 1% (20 ml mdv) 20 ML Vial INFILT (16:08)
--- NOTE | 2023-07-10 16:23 | PCM.OPRPT ---
Problems Associated Problem List Diagnoses (1) 37 weeks gestation of : (2) Obesity affecting : (3) Anemia affecting : (4) Encounter for induction of labor: (5) Gestational HTN: (6) Asthma: (7) Anxiety: Report of Operation Date of Procedure: 07/10/23 Pre-Operative Diagnosis: 37 week gestation, gHTN, obesity in Post-Operative Diagnosis: As above Surgery/Procedure Performed:: Repair of first degree vaginal laceration Description of Surgical Findings:: VFI in LELE position. Apgars 8, 9. Loose nuchal cord x 1. Normal placenta with 3 VC. Surgeon: Brooke Vivar Type of Anesthesia: None Special Medications: None Specimen's removed: Placenta Drains: None Estimated Blood Loss (mL): 200 Fluids Replaced: N/A Description of Procedure: Patient was complete and pushing. Head of delivered in left occiput anterior position and a loose nuchal cord x 1 noted. Anterior shoulder followed by posterior shoulder and body of the infant delivered spontaneously through the loose nuchal cord without any excessive traction, force, or delay. The cord was clamped and cut after a 60 second delay by the father of the baby. Cord blood was obtained. The placenta delivered with fundal massage and was noted to be normal-appearing and intact with a three-vessel cord. Fundus firm and bleeding hemostatic. A first-degree vaginal laceration was repaired with 3-0 Vicryl after injection of local. Sponge counts were correct. Vaginal sweep was performed. Grafts/Implants Used: None Complications None Admit VTE Documentation VTE Present on Admission: No
[2023-07-10] MEDS: Acetaminophen 500 MG Tablet PO (16:32)
--- NOTE | 2023-07-10 18:24 | PCM.PN.BLA ---
Progress Note Pt doing well per RN. No symptoms of anemia. No pain or heavy bleeding Assessment & Plan Assessment/Plan (1) endometritis: PLAN: Patient had 2 elevated temporal temperatures immediately after delivery. Tachycardia improving and could be secondary to anemia, but maternal tachycardia noted. Elevated WBC intrapartum. Allergy to PCN noted. Will recheck CBC with diff and start gent and clinda.
[2023-07-10] MEDS: Clindamycin 900 MG/50 ML BAG 75 MG IV (19:06)
[2023-07-10] MEDS: WATER IVPB (20:30)
[2023-07-10] MEDS: GENTAMICIN IVPB (20:30)
[2023-07-10] MEDS: DEXTROSE 5% IVPB (20:30)
--- NOTE | 2023-07-10 20:39 | PCM.RX.CS ---
Consult Antibiotic Management Pharmacy has been consulted to manage selected antibiotic: Gentamicin Type of Intervention Type of Consult: New start Suspected Infection Suspected Infection: Other (ENDOMETRITIS) Prior Doses of Antibiotics Prior Doses of Antibiotics Received/Current Regimen: Gentamicin 325 mg x 1 on 07/10/23 @ 2030 Labs Labs: Creatinine 0.84 mg/dL (0.55-1.02) 07/10/23 15:23 Est GFR (MDRD) Af Amer 111 mL/min (>60) 07/10/23 15:23 Est GFR (MDRD) Non-Af 91 mL/min (>60) 07/10/23 15:23 Dosing Weight Weight used for dosin kg Estimated Creatinine Clearance Estimated Creatinine Clearance: ~112 Pharmacy Plan for Drug Dosing Pharmacy Plan for Drug Dosing: Gentamicin 5 mg/kg x 1 followed by a random level 10 hours after initial dose, then dose based on nomogram. Pt is less than 60 inches, adjusted body weight used for dosing (adjusted body weight = 65 kg). Pharmacy Service will continue to monitor and adjust dosing as required. Follow-Up Labs Follow-Up Labs: Trough: Gentamicin (RANDOM) Date/Time Labs Ordered Labs to be done on [date and time ordered]: RANDOM 07/11/23 @ 4898
[2023-07-10 21:54] LABS: Pathology Specimen OB SEE PATHOLOGY REPORT
[2023-07-11] VITALS (13 sets, daily range): BP systolic 121–132; BP diastolic 73–86; PULSE 85–127; RESP 15–18; TEMP 36.6–37.1; O2SAT 98–100
[2023-07-11] MEDS: Ibuprofen 600 MG Tablet PO ×2 (03:31→14:01)
[2023-07-11] MEDS: Clindamycin 900 MG/50 ML BAG 75 MG IV ×2 (03:50→11:08)
[2023-07-11 07:09] LABS: Absolute Lymphocyte Count 2.13 X10^3/uL (0.83-4.51); Absolute Neutrophil Count 21.9 X10^3/uL (2.0-7.7); Basophil# 0.06 X10^3/uL; Basophil% 0.2 % (0-1); Eosinophil# 0.01 X10^3/uL; Hemoglobin 7.5 g/dL (12.0-15.0); Lymphocyte # 2.13 X10^3/ul (0.83-4.51); Lymphocyte % 8.1 % (19-41); Mean Corp Hgb Conc 31.3 g/dL (32-36); Mean Corpuscular Hgb 25.5 pg (27.0-32.0); Mean Corpuscular Volume 81.6 fL (81-99); Mean Platelet Vol. 10.1 fl (6.2-12.0); Monocyte# 1.81 X10^3/uL; Monocyte% 6.9 % (0-10); NRBC Flagged by Analyzer 0.1 % (0-5); Neutrophil # 21.92 X10^3/uL (2.7-7.7); Neutrophil % 83.9 % (47-70); POSITIVE DIFFERENTIAL YES; Platelet Count 326 K/mm3 (150-450); RBC Distribution Width CV 19.8 % (11.6-14.6); RBC Distribution Width SD 46.4 fl (35.1-43.9); Red Blood Count 2.94 M/mm3 (4.2-5.4); White Blood Count 26.2 K/mm3 (4.4-11.0)
[2023-07-11 07:25] LABS: Differential Indicated SCAN CRITERIA MET
[2023-07-11 08:22] LABS: Differential Comment SCANNED
--- NOTE | 2023-07-11 09:00 | PN.OBGYN_ITS ---
Subjective Subjective Pain well controlled, kulwant resendiz. Denies FUCHS or visual changes Objective Data Objective Data Vital Signs: Vital Signs Temp Pulse Resp BP Pulse Ox O2 Del Method 98 F 105 H 18 132/77 H 100 Room Air 07/11/23 07:30 07/11/23 07:30 07/11/23 07:30 07/11/23 07:30 07/11/23 03:30 07/11/23 03:30 Oxygen Delivery Method Room Air Weight: 98.7 kg Body Mass Index (BMI) 45.4 Intake & Output: Intake and Output for Last 24 Hours 07/09/23 07/10/23 07/11/23 23:59 23:59 23:59 Intake Total 3340.625 / 3340.625 Output Total 200 / 200 300 / 300 Balance 3140.625 / 3140.625 -300 / -300 Lab / Micro Data 07/11/23 06:55 07/10/23 15:23 Labs: Laboratory Results - last 24 hr 07/10/23 15:23: WBC 34.0 H*, RBC 3.70 L, Hgb 9.2 L, Hct 30.3 L, MCV 81.9, MCH 24.9 L, MCHC 30.4 L, RDW Std Deviation 47.5 H, RDW Coeff of Valerie 19.3 H, Plt Count 400, MPV 10.2, Diff Path Review October, PT 14.1, INR 1.1, APTT 28.8, Creatinine 0.84, Estim Creat Clear Calc 112.63, Est GFR (MDRD) Af Amer 111, Est GFR (MDRD) Non-Af 91, Uric Acid 6.6 H, Total Bilirubin 0.50, AST 16, ALT 16, Lactate Dehydrogenase 230 07/11/23 06:55: WBC 26.2 H, RBC 2.94 L, Hgb 7.5 L, Hct 24.0 L, MCV 81.6, MCH 25.5 L, MCHC 31.3 L, RDW Std Deviation 46.4 H, RDW Coeff of Valreie 19.8 H, Plt Count 326, MPV 10.1, Immature Gran % (Auto) 0.900, Neut % (Auto) 83.9 H, Lymph % (Auto) 8.1 L, Whiteside % (Auto) 6.9, Eos % (Auto) 0.0, Baso % (Auto) 0.2, Absolute Neuts (auto) 21.9 H, Absolute Lymphs (auto) 2.13, Nucleated RBC % 0.1, Differential Comment SCANNED, Diff Path Review May foll Physical Exam Narrative 2+ DTRs, no clonus Const alert and no apparent distress Narrative: Fundus firm, below umbilicus. Assessment & Plan (1) endometritis: PLAN: PPD#1 Gest HTN - bp stable overnight, continue to observe Afebrile overnight, suspected triple I, finish 24 hrs of antibiotics and recheck CBC tomorrow cont. to work on . (2) (spontaneous vaginal delivery):
[2023-07-11 09:36] LABS: Gentamicin, Random < 0.2 ug/mL
--- NOTE | 2023-07-11 10:06 | PCM.RX.CS ---
Consult Antibiotic Management Pharmacy has been consulted to manage selected antibiotic: Gentamicin Type of Intervention Type of Consult: Follow-up Suspected Infection Suspected Infection: Other (ENDOMETRITIS) Prior Doses of Antibiotics Prior Doses of Antibiotics Received/Current Regimen: gentamicin 325 mg IV x 1 given 07/10/23 @ 2030 Labs Labs: Creatinine 0.84 mg/dL (0.55-1.02) 07/10/23 15:23 Est GFR (MDRD) Af Amer 111 mL/min (>60) 07/10/23 15:23 Est GFR (MDRD) Non-Af 91 mL/min (>60) 07/10/23 15:23 Random Gentamicin < 0.2 ug/mL 07/11/23 06:55 Dosing Weight Weight used for dosin kg Estimated Creatinine Clearance Estimated Creatinine Clearance: ~112 Goal Trough Goal Trough: Other (undetectable) Pharmacy Plan for Drug Dosing Pharmacy Plan for Drug Dosing: Gentamicin random level drawn 10.5 hours after dose = <0.2. Continue 325 mg IV Q24H dosing, random level in 5 days (10 hours after dose) Pharmacy Service will continue to monitor and adjust dosing as required. Follow-Up Labs Follow-Up Labs: Trough: Gentamicin Date/Time Labs Ordered Labs to be done on [date and time ordered]: 07/16/23 @ 0600
[2023-07-11] MEDS: 0.9% Saline Lock 10 ML Syringe IV ×2 (11:09→20:44)
[2023-07-11 13:38] LABS: Pathologist Review Reviewed
[2023-07-11 13:41] LABS: Pathologist Review Reviewed
--- NOTE | 2023-07-11 16:13 | CASEMGMT ---
Labor and Delivery Social Work Sw informed of social work consult entered due to maternal mental health history positive for anxiety and depression. Sw presented to bedside, introduced self to mother and father of baby and completed psychosocial assessment. Sw assessed for any significant needs or concerns at this time, parents deny. Parents have obtained all necessary baby supplies for baby and have adequate supports in place (Currently residing with paternal grandparents). MOB expressed understanding of depression and anxiety symptoms to be on the lookout for during her period. Sw provided parents with list of resources available to them should any needs present themselves. No immediate needs or concerns, per sw ok for MOB and baby to be discharged when medically ready. In depth psychosocial assessment note to follow. Bryan Roman, TELEPHONY ENGINEER, DIGITAL ARTIST
[2023-07-12] VITALS (8 sets, daily range): BP systolic 132–142; BP diastolic 79–95; PULSE 98–120; RESP 14–16; TEMP 36.7–37.2; O2SAT 92–100
[2023-07-12] MEDS: Ibuprofen 600 MG Tablet PO ×3 (00:04→16:03)
[2023-07-12] MEDS: 0.9% Saline Lock 10 ML Syringe IV ×2 (08:03→12:03)
--- NOTE | 2023-07-12 08:12 | NURSING ---
Auscultated heart rhythm. Regular rhythm with occasional extra beats. Patient does report occasional palpitations, but also reported palpitations in . She reports being lightheaded if she is standing too long.
--- NOTE | 2023-07-12 08:31 | PCM.PN.OB ---
Subjective Subjective Pain well-controlled. Average lochia. Denies headache or visual changes. Denies chest pain or shortness of breath. No epigastric pain Objective Data Objective Data Vital Signs: Vital Signs Temp Pulse Resp BP Pulse Ox O2 Del Method 98.4 F 105 H 14 142/95 H 98 Room Air 07/12/23 07:58 07/12/23 07:58 07/12/23 07:58 07/12/23 07:58 07/12/23 07:58 07/12/23 07:58 Oxygen Delivery Method Room Air Weight: 98.7 kg Body Mass Index (BMI) 45.4 Intake & Output: Intake and Output for Last 24 Hours 07/10/23 07/11/23 07/12/23 23:59 23:59 23:59 Intake Total 3340.625 / 3340.625 100 / 100 Output Total 200 / 200 300 / 300 Balance 3140.625 / 3140.625 -200 / -200 Lab / Micro Data 07/11/23 06:55 07/10/23 15:23 Labs: Laboratory Results - last 24 hr 07/10/23 15:23: Diff Path Review Reviewed 07/11/23 06:55: Diff Path Review Reviewed, Random Gentamicin < 0.2 07/12/23 07:33: WBC Cancelled, Corrected WBC Cancelled, RBC Cancelled, Hgb Cancelled, Hct Cancelled, MCV Cancelled, MCH Cancelled, MCHC Cancelled, RDW Std Deviation Cancelled, RDW Coeff of Valerie Cancelled, Plt Count Cancelled, MPV Cancelled, Diff Path Review Cancelled Physical Exam Narrative fundus is minimally tender. Extremities have 3+ DTRs and 1 beat of clonus Const alert and no apparent distress Narrative: Fundus firm, below umbilicus. Assessment & Plan (1) (spontaneous vaginal delivery): PLAN: Plan day #2 status post vaginal delivery. Elevated blood pressures. Start Procardia. Patient had gestational hypertension. Monitor blood pressures. Discussed with patient importance of close follow-up and monitoring blood pressures at home and calling or returning for signs or symptoms of severe preeclampsia. If stable later today may discharge home. Waiting for repeat CBC. Was moderately anemic from chronic antepartum anemia with superimposed acute blood loss anemia appropriate for blood loss during delivery. If hemoglobin lower, may consider IV iron before she leaves.
[2023-07-12] MEDS: NIFEdipine 30 MG Tablet PO (08:34)
--- NOTE | 2023-07-12 08:34 | DS.PCM_ITS ---
Providers Date of Admission: 07/09/23 Date of Discharge: 07/12/23 Primary Care Physician: Dr. Soni Salazar MD Reason For Visit: VAGINAL DELIVERY Diagnosis Discharge Diagnosis (1) (spontaneous vaginal delivery): Status: Acute Code(s): O80 - Encounter for full-term uncomplicated delivery Plan day #2 status post vaginal delivery. Elevated blood pressures. Start Procardia. Patient had gestational hypertension. Monitor blood pressures. Discussed with patient importance of close follow-up and monitoring blood pressures at home and calling or returning for signs or symptoms of severe preeclampsia. If stable later today may discharge home. Waiting for repeat CBC. Was moderately anemic from chronic antepartum anemia with superimposed acute blood loss anemia appropriate for blood loss during delivery. If hemoglobin lower, may consider IV iron before she leaves. Medications at Discharge Home Medications vit no.95-ferrous fumarate 28 mg-folic acid 800 mcg tablet () 1 tab PO DAILY 06/06/23 cetirizine 10 mg tablet (24Hour Allergy) 10 mg PO DAILY PRN allergy symptoms 07/07/23 ibuprofen 600 mg tablet 600 mg PO Q6H PRN Pain 20 days #30 TABLETS 07/12/23 nifedipine 30 mg tablet,extended release 24 hr (Procardia XL) 30 mg PO DAILY 30 days #30 tabs 07/12/23 Hospital Course Operations - (Vaginal delivery 07/10/23) Summary of Care Provided Minutes Spent on Discharge: 16 Hospital Course: No apparent female admitted for gestational hypertension on 07/09/2023 who underwent induction labor. She had a vaginal delivery on 07/10/2023. She had some elevated blood pressures. On day #2 she was doing well. She was started on Procardia. She is to follow-up in the office in 2 to 3 days or as needed or return for signs or symptoms of severe preeclampsia. Weight / BMI Weight Weight: 98.7 kg Body Mass Index (BMI) 45.4 ABG / Lab / Microbiology Data 07/11/23 06:55 07/10/23 15:23 Laboratory: Laboratory Results - last 24 hr 07/10/23 15:23: Diff Path Review Reviewed 07/11/23 06:55: Diff Path Review Reviewed, Random Gentamicin < 0.2 07/12/23 07:33: WBC Cancelled, Corrected WBC Cancelled, RBC Cancelled, Hgb Cancelled, Hct Cancelled, MCV Cancelled, MCH Cancelled, MCHC Cancelled, RDW Std Deviation Cancelled, RDW Coeff of Valerie Cancelled, Plt Count Cancelled, MPV Cancelled, Diff Path Review Cancelled D/C Instructions Discharge Diet: No restrictions May resume sexual activity in: 6 weeks Call your doctor if your incision/area has: Continuous Slow Oozing, Sudden Increased Bleeding, Foul Smelling Discharge and Swelling at the incision site Call your doctor if you observe: Fever of 101 or Higher and Inability to urinate Please Follow Up With: Tika Hawk MD When: Follow up with our office in 2-3 days and 6 weeks. Call or send a [employer] message. [phone] Meaningful Use Info Meaningful Use Diagnoses (Choose all that apply): None applicable Discharge Plan Admission Admit Date/Time: 07/09/23 14:50 Primary Reason for Your Visit: Gestational hypertension and vaginal delivery Attending Provider: Brooke Vivar Primary Care Provider: Soni Salazar Discharge Orders/Prescriptions Prescriptions: New ibuprofen [ibuprofen] 600 mg tablet 600 mg PO Q6H PRN (Reason: Pain) 20 Days Qty: 30 1RF nifedipine [Procardia XL] 30 mg tablet extended release 24hr 30 mg PO DAILY 30 Days Qty: 30 0RF Continued PNV cmb#95-ferrous fumarate-FA [] 28 mg iron- 800 mcg tablet 1 tab PO DAILY cetirizine [24Hour Allergy] 10 mg tablet 10 mg PO DAILY PRN (Reason: allergy symptoms) Referrals / Follow Up: Soni Salazar MD [Primary Care Provider] - Disposition Disposition (needs filled in before D/C Order can be placed): Home, Self Care
[2023-07-12 09:24] LABS: Hematocrit 24.6 % (37-47); Hemoglobin 7.3 g/dL (12.0-15.0); Mean Corp Hgb Conc 29.7 g/dL (32-36); Mean Corpuscular Hgb 25.2 pg (27.0-32.0); Mean Corpuscular Volume 84.8 fL (81-99); Mean Platelet Vol. 9.9 fl (6.2-12.0); POSITIVE MORPHOLOGY YES; Platelet Count 305 K/mm3 (150-450); RBC Distribution Width CV 20.9 % (11.6-14.6); RBC Distribution Width SD 49.5 fl (35.1-43.9); White Blood Count 15.9 K/mm3 (4.4-11.0)
[2023-07-12 09:26] LABS: Scan Indicated on CBC? Y/N YES- FLAGS NOTED
[2023-07-12 10:55] LABS: Differential Comment S
[2023-07-12] MEDS: DiphenhydrAMINE 25 MG Capsule PO (11:10)
[2023-07-12] MEDS: Iron Sucrose Complex 200 MG in 0.9% Normal Saline (100mL Bag) 100 ML 220 MG IV (12:03)
--- NOTE | 2023-07-16 12:25 | CASEMGMT ---
Social Work Assessment Labor and Delivery Unit Late entry Patient [place] [address] Phone number: [phone] Date of Referral: 07/10/23 Time of Referral:? 2042 Referred By: Brooke Vivar Date of Intervention: ?07/11/23? Time of Intervention:? 1200 Reason for Referral:? resources- WIC Sw completed chart review and acknowledges social work consult for resources and WIC. Sw presented to bedside and introduced self to mother of baby (KAMINI Unger) and explained sw role during hospitalization. Also present during assessment was father of baby (FOShannon- Andre) and brother to AALIYAH. Sw asked if it was ok to continue with assessment with visitor present and MOB said yes. History obtained from: medical records, MOB and FOB Household composition: MOB states that they are currently residing with paternal grandparents and FOB's older sister. MOB denies any concerns or issues with housing at this time. Patient's parent/guardian status:? ?MOB states that she and FOB have been together for 3 years. MOB denies any concerns with domestic violence or intimate partner violence. MOB states that they met while attending school together. Medical History: ?AALYIAH is 18 year old female who is 1, para 0- now 1 following labor and delivery of . AALIYAH presented to hospital and delivered baby via vaginal delivery at 37 weeks gestation. Baby girl, named Shital Griffin, was born weighing 6lb 9oz and her apgars were 8 and 9 at one and five minutes of life. MOB states that she is breast feeding and it is going ok. MOB states that baby will be followed by Dr. Salazar for pediatrics. Educational Status:? Both parents graduated from high school. No college education and no concerns with reading, learning or comprehension. Financial Status: FOB is employed as a diesel truck driver. MOB is unemployed at this time. Infant Supplies:?? Parents have obtained all necessary baby supplies, including: car seat, safe sleep space, clothes, diapers, and wipes. Childcare/Caregiver(s):? MOB will be the primary caregiver to baby along with FOB when he is not at work. MOB states that if they never need help with childcare baby's grandparents will be able to help. Transportation:?? MOB does not drive, but FOB does. MOB states that when she has doctors appointments, or if they baby has appointments FOB will take them or paternal grandma. Programs/Agencies Involved: ???AALIYAH is connected to insurance through [employer] [facility] ([employer]) and is receptive to getting connected to [facility], information provided. Children Services/Legal Issues:??? No history of children services involvement, no issues or concerns warranting referral to be made at this time. Behavioral Health Issues: ??Mental Health History:?FOB denies mental health history. MOB states that she has been diagnosed with anxiety and depression. MOB denies any medications that she is on at this time to assist with symptoms of her mental health diagnoses. MOB completed [place] Depression Scale and her score was a 6. Sw provided education and support. Sw informed MOB that some mom's who have history of anxiety and depression are more susceptible to experiencing mental health symptoms. MOB expressed understanding.?? Substance Use History: MOB denies substance use prior to and during . ?? Family History: Parents deny family addiction/ substance use disorder and significant mental health diagnoses such as schizophrenia or bipolar.? Drug Screens: ??No urine screens observed during chart review. Family/Social Stressors:? Parents deny any issues or struggles at this time. Support Systems: AALIYAH states that both sets of grandparents are supportive, as well as her brother who is visiting with them today. Depression/Shaken Baby/Safe Sleeping:? Sw educated parents on signs and symptoms of baby blues and depression and anxiety. Sw provdied parents with literature to review. Parents express understanding. Sw educated parents on shaken baby prevention and ABCs of safe sleep. Parents express understanding. ASSESSMENT:? MOB and baby admitted following labor and delivery of . MOB and FOB both engaged in assessment. Parents slightly withdrawn and poor historians. Parents not forthcoming with information and difficult to engage in flowing conversation. Parents answered questions asked and assessment able to be completed. MOB at higher risk of experiencing baby blues and depression due to her mental health history. Parents educated on signs and symptoms of baby blues and depression. PLAN:? MOB and baby to be discharged when medically ready. ?No other services requested or indicated. Bryan Roman, DATA ENTRY SPECIALIST, CULINARY MANAGER
== END 2023-07-12 17:55 | disposition home or self-care (01) | DRG 560 ==
PROVIDERS: Advanced Practice Midwife; Obstetrics & Gynecology; Admitting Provider Obstetrics & Gynecology; PCP Pediatrics; Visit Provider Obstetrics & Gynecology
DX: O13.4 Gestational [pregnancy-induced] hypertension without significant proteinuria, complicating childbirth (principal); Z37.0 Single live birth; O86.12 Endometritis following delivery; J45.909 Unspecified asthma, uncomplicated; E66.8 Other obesity; F41.9 Anxiety disorder, unspecified; O99.344 Other mental disorders complicating childbirth; O99.214 Obesity complicating childbirth; O76 Abnormality in fetal heart rate and rhythm complicating labor and delivery; O70.0 First degree perineal laceration during delivery; O99.52 Diseases of the respiratory system complicating childbirth; Z3A.37 37 weeks gestation of pregnancy; O69.81X0 Labor and delivery complicated by cord around neck, without compression, not applicable or unspecified
CPT/HCPCS: 36415; 59025; 59050; 80170; 82247; 82565; 83615; 84450; 84460; 84550; 85025; 85027; 85610; 85730; 86780; 86850; 86900; 86901; 88307; 99221; J1756; J7050; J7120; A4216; G0378; J2405